=== PATIENT | male | born 1945 | race Caucasian/White ===

== ENCOUNTER → 2016-04-24 | Outpatient (CLI) | payer OTHER, MEDICARE ==
[2015-04-12 13:20] VITALS: BP 131/84; PULSE 82
[~2016-04-24] MED LIST: ALBU1AER9 INH; ASPI81TA28 PO; ATOR10TA82 PO; CHOLTAB3 PO; ESCI10TA17 PO; FEXO1TAB58 PO; FINA5TAB PO; FLUT0.0529 INTNAS; FLUT110A INH; GLIM1TAB2 PO; INSDGI SC; LEVO75TA5 PO; METF1TAB53 PO; MULT-506 PO; SITA100T3 PO; [UNRECOGNIZED DRUG - CODE]; [UNRECOGNIZED DRUG - CODE] PO
[2016-04-24 12:49] VITALS: BP_SYST 166; BP_SYST 171; BP_DIAS 91; BP_DIAS 97; PULSE 88; TEMP 36.9; O2SAT 97
--- NOTE | 2016-04-24 13:52 | Radiation Oncology Follow-Up ---
Radiation Oncology Follow-Up Date of Visit Apr 24, 2016. Reason For Visit Annual follow up Radiation Completion Date Hormonal suppression;IMRT 09/08/10 Diagnosis (1) Prostate cancer Status: Resolved Permanent Comment: Rising PSA presenting PSA 7.12 Status post biopsies. Biopsy stage T2c [place] 3+4 and 4+4 Hormonal suppression for 8 months Status post completion of radiation therapy utilizing IMRT/IGRT completed 2010 received 7840 cGy Last Edited By: Leydi Estrella on Apr 12, 2015 14:32 Interim History He is currently doing well from urinary standpoint. His AUA score was 5. He is delighted in regards to the outcome of his urinary condition. He completed and expanded prostate cancer index composite for clinical practice and gave a score of 0 of 12 and urinary incontinence symptoms. He gave a score of 0 of 12 urinary irritation symptoms. He gave a score of 2 of 12 in bowel symptoms. He gave a score of 8 of 12 and sexual symptoms. To note he wrote that this was not a problem. He gave a score of 0 12 and hormonal vitality symptoms. His total was 10 of 60. Earlier this year he had an episode of gross hematuria. This occurred after exercising. He called his urologist and recommendation was that he drink plenty of fluids to flush the bladder. He was then seen the following Saturday. He had a cystoscopic examination as well as a CT. He was told he has an enlarged prostate and increased vasculature. He was started on finasteride. With this medication he has greatly improved. There has been minimal and decreasing episodes of the hematuria. He has had a recheck PSA which was on 04/17/2016. That was found to be 0.34. He has been on the finasteride for over 6 months. His PSA converts to 0.68 due to the finasteride. Allergies Coded Allergies: Sulfa Drugs (Unverified Allergy, Unknown, unknown told by allergists after testing -sulfa allergy, 10/12/10) Home Medications Scheduled Aspirin (Aspirin Ec), 81 MG PO DAILY Atorvastatin (Lipitor), 10 MG PO DAILY Ergocalciferol (Vitamin D), 400 INTER.UNIT PO BID Escitalopram (Lexapro), 10 MG PO DAILY Finasteride (Proscar), 1 TAB PO DAILY Glimepiride (Glimepiride), 3 MG PO HS Insulin Glargine (Lantus), 10 SC QD@08 Levothyroxine Sodium (Levothyroxine Sodium), 75 MCG PO DAILY Metformin Hcl (Glucophage Ext Rel), 1,000 MG PO BID Multivitamin (Multivitamin), 1 TAB PO DAILY Sitagliptin Phosphate (Januvia), 100 MG PO DAILY Valsartan/Hctz (Diovan Hct 320MG/25MG *), 1 TAB PO DAILY [co-Q10], 1 TABLET DAILY Scheduled PRN Albuterol (Proair Hfa), 2 PUFFS INH QID PRN for Shortness of Breath Fexofenadine-Pseudoephedrine (Mercedes-D 24 Hour Allergy), 1 TAB PO DAILY PRN for Nasal Congestion Fluticasone Propionate Hfa (Flovent Hfa 110MCG Inhaler), 2 PUFF INH BID PRN for Shortness of Breath Fluticasone Propionate (Nasal) (Flonase), 2 SPRAYS INTNAS DAILY PRN for Shortness of Breath Review of Systems Gastrointestinal: Symptoms: WNL GI Comments: Continues to get "bouts of diarrhea" that resolves without intervention; Oral: Symptoms: No Problems Respiratory: Symptoms: WNL Other Respiratory: "SOB with a bad cold " had childhood asthma Urinary: Symptoms: Nocturia Comments: "urgency, some dribbling at times ", nocturia times 1 Skin: Symptoms: No Problems Other Skin Symptoms: ' had some skin tags removed " Physical Exam Vital Signs Date Time Temp Pulse Resp B/P Pulse Ox O2 Delivery O2 Flow Rate FiO2 04/24/16 12:49 36.9 88 16 171/91 97 166/97 Pain: Side: Bilateral Pain Location: None Patient Pain Scale: 0 - 10 Initial Pain Intensity: 0.0 Fatigue: None General Appearance: no apparent distress Eyes: normal inspection, EOMI ENT: normal ENT inspection, hearing grossly normal Neck: no adenopathy, thyroid normal Respiratory/Chest: lungs clear, no respiratory distress, no accessory muscle use Cardiovascular: regular rate, rhythm, no gallop, no murmur Anal / Rectum: Rectal examination reveals internal hemorrhoids. The prostate is enlarged. There are no masses or rectal bleeding. Extremities: no pedal edema Neurologic/Psychiatric: no motor/sensory deficits, alert, normal mood/affect Laboratory Studies PSA as reviewed above. This was found to be 0.34 which converts to 0.68. Additional Studies The cystoscopic examination was reviewed from 11/01/2015. This showed trilobar hypertrophy with large vessels on the surface. The prostate bulges into the bladder. Assessment & Plan Plan: Continue regular follow-up with Dr. Torres. He'll be seeing her on May 01. Continue follow-up on the PSAs. A follow-up appointment with our office was not given. He may call if he has any questions or concerns we be happy to see him. He is going to continue on the finasteride which is helping his urinary status as well as episodes of hematuria. We did discuss that the changes that occurred may be related to radiation if this is telangiectasia. He 'll continue to need digital rectal examinations in the future to follow for any possible secondary malignancy. Total Time In Follow-Up I spent 20 minutes speaking to the patient performing examination. I spent 15 minutes reviewing information and completing this note. Copy To Tamiko Gaming DO; Vannessa Torres MD
== END | disposition home or self-care (01) ==
LOC: C.ONC 12:44
PROVIDERS: ATTEND Physician Assistant Medical
DX: Z08 Encounter for follow-up examination after completed treatment for malignant neoplasm (principal); Z92.3 Personal history of irradiation; Z85.46 Personal history of malignant neoplasm of prostate

== ENCOUNTER 2017-05-07 11:00 | Day surgery (SDC) | payer OTHER, MEDICARE ==
[~2017-05-07] VITALS: Ht 193 cm; Wt 114.5 kg
[~2017-05-07 11:00] MED LIST changes: +CEFAZOLIN 3000MG IV PUSH 22.5 ML IV SCH
[2017-05-07 11:43] VITALS: BP 185/82; PULSE 96; TEMP 36.6; O2SAT 100; Ht 193 cm; Wt 114.5 kg
--- NOTE | 2017-05-07 12:24 | History & Physical Bridge Note ---
H&P Re-Evaluation Bridge Note: I have examined the patient, reviewed the History & Physical and in the interval since the performance of the History & Physical I have noted the following changes of clinical significance: No changes noted
[2017-05-07] MEDS ORDERED: LIDOCAINE HCL 2% 2 ML VIAL (20MG/ML) ONE (12:36)
[2017-05-07] MEDS ORDERED: DEXAMETHASONE SOD INJ 4 MG/ML VIAL ONE (12:36)
[2017-05-07] MEDS ORDERED: ONDANSETRON INJ 2 MG/ML 2 ML VIAL ONE (12:36)
[2017-05-07] MEDS ORDERED: PROPOFOL IV EMULSION 10 MG/ML 20 ML VIAL IV ONE (12:36)
[2017-05-07] MEDS ORDERED: FENTANYL CITRATE INJ 50 MCG/1 ML 2 ML VIAL ONE (12:37)
[2017-05-07] MEDS ORDERED: MIDAZOLAM HCL 1 MG/ML 2ML VIAL ONE ×2 (12:37→13:59)
[2017-05-07] MEDS ORDERED: CEFAZOLIN SOD 3000MG/22.5 ML IV PUSH IV ONE (12:38)
--- NOTE | 2017-05-07 14:07 | [facility] Operative Report ---
Operative Report Operative Date May 07, 2017. Pre-Operative Diagnosis Gross Hematuria Post-Operative Diagnosis Bladder tumor Procedure(s) Performed Cystoscopy, Clot Evacuation, and Bladder Biopsy Surgeon Dr. Vannessa Torres Body Component Engineer Surgeon(s) None Estimated Blood Loss 20 mL Findings papillary tumor left bladder floor Fluids 600 Specimens Permanent specimens A: Left Bladder Floor Biopsy Drains 18 fr coude garzon Anesthesia Type Spinal MAC Complication(s) none Disposition yes Recovery Room / PACU Indications persistent gross hematuria and dropping hematocrit Description of Procedure Patient was given spinal anesthesia sedated and placed in lithotomy position. His genitals were prepped and draped in sterile fashion. Time out held with team. I placed a 22 fr rigid cystoscope to bladder. The urethra is unremarkable. The prostate is trilobar occlusive with a large middle lobe. I used a Reinaldo syringe and adapter to evacuate about 100mL of soft dark clot. The bleeding is coming from a 20mm left lateral floor bladder tumor. There are 3 vessels on surface actively bleeding. I used a cold cups forceps to remove the tumor then used bugbee to fulgurate any bleeding areas. I see no other tumors. I did use some cautery at the bladder neck for some prostate bleeding stirred up by scope manipulation. I rinsed bladder copiously then left him full. I emptied bladder by placing a 18 fr coude garzon and inflating balloon with 5mL saline. I concluded case. He transferred to recovery under my escort, in stable condition. Plan: Home today will call with path report. ASA 3 clean contaminated case ancef antibiotic registered medical transcriptionist I attest to the content of the Intraoperative Record and any orders documented therein. Any exceptions are noted below.
--- NOTE | 2017-05-07 14:08 | Discharge Instructions ---
Discharge Instructions Date of Service May 07, 2017. Admission Reason for Admission: Hematuria Discharge Discharge Diagnosis / Problem: bladder tumor Discharge Goals Goal(s): Improve disease control Activity Recommendations Activity Limitations: as noted below Lifting Limitations: no more than 25 pounds Exercise/Sports Limitations: none May Resume Sexual Activity: after one week Shower/Bathe: no limitations Driving or Machine Use: resume 1 day after discharge . Current Hospital Diet Patient's current hospital diet: Discharge Diet Recommended Diet: Diabetes Type 2 Diet Fluid Restriction: None Procedures Procedures Performed: Cystoscopy, Clot Evacuation, and Bladder Biopsy Pending Studies Studies pending at discharge: yes List of pending studies: path Medical Emergencies . Who to Call and When: Medical Emergencies: If at any time you feel your situation is an emergency, please call 911 immediately. . Non-Emergent Contact Non-Emergency issues call your: Urologist ([phone]) Call Non-Emergent contact if: temperature is above 100.5, your pain is not controlled . . "Provider Documentation" section prepared by Vannessa Torres. .
[2017-05-07] MEDS ORDERED: FENTANYL CITRATE INJ 50 MCG/1 ML 2 ML VIAL IV PRN (14:15)
[2017-05-07] MEDS ORDERED: ONDANSETRON INJ 2 MG/ML 2 ML VIAL IV PRN (14:15)
[2017-05-07] MEDS ORDERED: ATROPINE SULFATE 0.1 MG/ML 5ML SYR IV PRN (14:15)
[2017-05-07] MEDS ORDERED: EpHEDrine SULFATE INJ 50 MG/ML AMP IV PRN (14:15)
[2017-05-07 14:25] VITALS: BP 141/72; PULSE 86; TEMP 36.9; O2SAT 100
[2017-05-07 14:55] VITALS: BP 140/69; PULSE 87; TEMP 36.8; O2SAT 98
--- NOTE | 2017-05-07 15:06 | Anesthesiology Progress Note ---
Anesthesia Post Op Note Date & Time May 07, 2017 at 15:06 Vital Signs Pain Intensity: 0 Vital Signs Past 12 Hours Date Time Temp Pulse Resp B/P (MAP) Pulse Ox O2 Delivery O2 Flow Rate FiO2 05/07/17 14:20 36.2 85 16 143/76 99 Room Air 05/07/17 14:10 86 16 142/79 100 Room Air 05/07/17 14:01 36.3 99 16 141/95 99 Room Air 05/07/17 11:43 36.6 96 20 185/82 (116) 100 Room Air Notes Mental Status: alert / awake / arousable, participated in evaluation Pt Amnestic to Procedure: Yes Nausea / Vomiting: adequately controlled Pain: adequately controlled Airway Patency, RR, SpO2: stable & adequate BP & HR: stable & adequate Hydration State: stable & adequate Neuraxial Anesthesia: was administered, sensory block is resolving Anesthetic Complications: no major complications apparent
[2017-05-07 15:33] VITALS: BP 153/70; PULSE 88; TEMP 37.1; O2SAT 98
[2017-05-07 16:20] VITALS: BP 160/76; PULSE 93; TEMP 37.1; O2SAT 100
== END 2017-05-07 16:33 | disposition home or self-care (01) ==
LOC: C.OR 11:00 → C.ACU 16:33
PROVIDERS: ATTEND Urology
DX: C67.9 Malignant neoplasm of bladder, unspecified (principal); I10 Essential (primary) hypertension; E03.9 Hypothyroidism, unspecified; E11.9 Type 2 diabetes mellitus without complications; E78.5 Hyperlipidemia, unspecified; G47.33 Obstructive sleep apnea (adult) (pediatric); Z85.46 Personal history of malignant neoplasm of prostate; Z90.89 Acquired absence of other organs; Z88.2 Allergy status to sulfonamides; Z79.899 Other long term (current) drug therapy; Z79.4 Long term (current) use of insulin

== ENCOUNTER 2019-10-12 11:26 | Inpatient (IN) ==
--- OUTSIDE RECORDS SUMMARY | 2019-10-12 11:28 | External Medical Summary | Continuity of Care Document ---
:1945 Author Name Samanta Moreno, Provider Address Unavailable Unavailable , Care Team Providers Name Role Phone Bunny Moreno, Andrew Newton Unavailable [email or web address] Unavailable Unavailable Unavailable Unavailable Unavailable Assessments Assessed Problems:HypertensionPre-syncopeRight bundle branch block with left anterior fascicular block Problems Anxiety (300.00) (F41.9) Diabetes mellitus (250.00) (E11.9) Hypothyroidism (244.9) (E03.9) Elevated prostate specific antigen (PSA) (790.93) (R97.20) Dyslipidemia (272.4) (E78.5) Abnormal electrocardiogram (794.31) (R94.31) Hypertension (401.9) (I10) Pre-syncope (780.2) (R55) 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 Refills: 0 Lantus SOLN; INJECT 20 UNITS DAILY Refills: 0 Lexapro 5 MG Oral Tablet; TAKE 1 TABLET DAILY. Refills: 0 Levothyroxine Sodium 75 MCG Oral Tablet; TAKE 1 TABLET DAILY . Quantity: 90 Refills: 3 Glimepiride 1 MG Oral Tablet; TAKE 3 TABLET Daily Refills: 0 metFORMIN HCl ER (OSM) 1000 MG Oral Tabl et Extended Release 24 Hour; Take 1 tablet twice daily Refills: 0 Diovan HCT 320-12.5 MG Oral Tablet; TAKE 1 TABLET ONCE DAILY . Refills: 0 Januvia 100 MG Oral Tablet; TAKE 1 TABLET DAILY. Refills: 0 Vitamin D 400 UNIT CAPS; Take 1 capsule twice daily Refills: 0 amLODIPine Besylate 10 MG Oral Tablet; TAKE 1 TABLET DAILY. Refills: 0 Mercedes 180 MG TABS; TAKE 1 TABLET DAILY NEEDED. Refills: 0 Procedures History of Tonsillectomy With Adenoidectomy Status: Completed History of Hernia Repair Status: Complet ed Immunizations Immunizations not documented Social History - Smoking Status Never smoked tobacco Interventions Labs/Procedures/ImagingIn-House EKG Total Component; Done: 18 May 2014 Discussion/Summary#1. Bifascicular block: He has right bundle branch block and left anterior fascicular block (one electrocardiogram in the past had lead reversal evidently suggesting a left posterior fascicular block pattern). He has had this pattern since at least 2004, probably earlier based on his history but this is the earliest electrocardiogram I have. There is no evidence of heart block on Holter monitoring and his heart is structurally normal therefore there is no indication to consider pacemaker implantation or further testing at this time. We should follow this up occasionally. If he has any symptoms in the meantime we may need to consider further evaluation. #2. Intermittent lightheadedness: It is possible that these several episodes described above wherehe has several minutes of lightheadedness are due to heart block although he believes he is checked his pulse and did not noted to be slow. He thought the episodes were due to low blood sugar although he did not do anything to correct his blood sugar and the episodes resolved quite suddenly. The episodes are very intermittent, he has had 2 by years, therefore unless they become more frequent I do not think we can try to record them. If they do become frequent we should try to get an electrocardiographic recording during an episode. He does have rare orthostatic type symptoms with standingup, perhaps these episodes were more prolonged orthostatic episodes. #3. Coronary disease risk factors: He is being treated for hypercholesterolemia and he is cholesterol from June of 2011 he is excellent at 133 with an LDL of 46. His blood pressure appears to be under fairly good control although his blood pressure (systolic component only) is a little elevated today. He also has left ventricular hypertrophy, this is mild but is most likely due to hypertension. I'venot adjusted his medications, ordinarily I might consider adding a beta diana but with his conduction abnormality (even though beta blockers don't typically affect intraventricular conduction properties) I would prefer not to. In addition he has the minor orthostatic symptoms and he tells me his blood pressures usually less than 120 systolic when he checks it at home. I am going to have him come back in for followup in one year. Thank you for allowing me to participate in his care. Plan of Treatment Planned Observations Planned Goals not documented Results No Known Results Results not documented Encounters Appointment; Andrew Hollis M.D. 18-May-2014 11:30 Encounter Diagnosis: Problem not documented
--- OUTSIDE RECORDS SUMMARY | 2019-10-12 11:29 | External Medical Summary | Continuity of Care Document ---
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 Refills: 0 Lexapro 5 MG Oral Tablet; TAKE 1 TABLET DAILY. Refills: 0 Levothyroxine Sodium 75 MCG Oral Tablet; TAKE 1 TABLET DAILY . Quantity: 90 Refills: 3 Januvia 100 MG Oral Tablet; TAKE 1 TABLET DAILY. Refills: 0 Glimepiride 1 MG Oral Tablet; TAKE 3 TABLET Daily Refills: 0 Vitamin D 400 UNIT CAPS; Take 1 capsule twice daily Refills: 0 amLODIPine Besylate 10 MG Oral Tablet; TAKE 1 TABLET DAILY. Refills: 0 Mercedes 180 MG TABS; TAKE 1 TABLET DAILY NEEDED. Refills: 0 Lipitor 20 MG Oral Tablet; TAKE 1 TABLET DAILY. Refills: 0 Lantus SOLN; INJECT 20 UNITS DAILY Refills: 0 metFORMIN HCl ER (OSM) 1000 MG Oral Tabl et Extended Release 24 Hour; Take 1 tablet twice daily Refills: 0 Procedures History of Tonsillectomy With [...]
[2019-10-12] MEDS ORDERED: SODIUM CHLORIDE 0.9% 500 ML IV ONE ×2 (11:47→14:25)
[2019-10-12] MEDS ORDERED: DEXAMETHASONE SOD INJ 10 MG/ML VIAL IV ONE (11:47)
[2019-10-12] MEDS ORDERED: ALBUT/IPRATROP 3MG/0.5MG NEB 3 ML VIAL NEB STA (11:49)
[2019-10-12] MEDS ORDERED: guaiFENesin 600 MG TABCR PO STA (11:49)
[2019-10-12 12:47] LABS: Basophils # (auto) 0.01 K/uL (0-0.2); Basophils % (auto) 0.1 %; Eosinophils # (auto) 0.07 K/uL (0-0.5); Eosinophils % (auto) 0.8 %; Hemoglobin 11.6 g/dL (14.0-18.0); Immature Granulocytes # (auto) 0.24 K/uL (0.00-0.02); Immature Granulocytes % (auto) 2.8 %; Lymphocytes # (auto) 1.29 K/uL (1.2-3.4); Lymphocytes % (auto) 15.2 %; Mean Corpuscular Hemoglobin 25.4 pg (25-34); Mean Corpuscular Hgb Conc 30.5 g/dL (32-36); Mean Corpuscular Volume 83.2 fL (80-100); Mean Platelet Volume 9.9 fL (7.4-10.4); Monocytes # (auto) 1.03 K/uL (0.11-0.59); Monocytes % (auto) 12.1 %; Neutrophils # (auto) 5.85 K/uL (1.4-6.5); Nucleated RBC # (auto) 0.05 K/uL (0-0); Nucleated RBC % (auto) 0.6 %; Platelet Count 236 K/uL (130-400); RDW Coefficient of Variation 18.2 % (11.5-14.5); RDW Standard Deviation 54.9 fL (36.4-46.3); Red Blood Count 4.57 M/uL (4.7-6.1); White Blood Count 8.49 K/uL (4.8-10.8)
--- NOTE | 2019-10-12 12:51 | XRay Report ---
XR chest 1V portable CLINICAL HISTORY: Atypical chest pain COMPARISON STUDY: No previous studies for comparison. FINDINGS: There is complete opacification of the left hemithorax with mediastinal shift to the right. This suggests the presence of a pleural effusion with associated left lung atelectasis/consolidation . A left lung mass can also not be excluded. Further workup is advocated. The right lung demonstrates mild interstitial thickening. There is no lobar consolidation. No significant right pleural effusion is visualized.[ IMPRESSION: Complete opacification of left hemithorax with subtle shift to the right. This suggests t he presence of a pleural effusion with associated left lung atelectasis/consolidation. The left lung mass cannot be excluded. Further workup is advocated. ACT 112: Negative or not required by law. Electronically signed by: Enrique Rm M.D. 10/12/2019 12:49 PM
--- NOTE | 2019-10-12 13:00 | Emergency Department Note ---
Impression & Plan Hypoxia, History of prostate cancer, Pleural effusion, left, RAUL (acute kidney injury), Large mass of breast ED Provider Note NAME: CARTER ALFRED AGE: 74 SEX: M ARRIVES VIA: Ambulance INFORMANT: Patient, ED PROVIDER(S): Ronak Mathur MD CHIEF COMPLAINT: Shortness of breath PLAN: Disposition: Admit MEDICAL DECISION MAKING: The patient is a pleasant 74-year-old gentleman with a past medical history of asthma, HTN, HLD, prior bladder CA and prostate CA who presents emerged department with progressive worsening shortness of breath over the past several weeks in the setting of being treated by his PCP for asthma flare but denies any improvement. He admits to feeling fatigued and unwell. Otherwise he denies chest pain, fevers, cough, nausea, vomiting, diarrhea, urinary symptoms. On arrival the patient is in no acute distress, afebrile with stable vital signs. He appears clinically dry. He has scant intermittent wheeze and diminished in the left lung husain. EKG with right bundle branch block but no overt acute ischemia. Chest x-ray with white out of left lung husain which is further clarified on CT. WBC and platelets within normal limits. H/H 11.6/30.0 without recent values for comparison. Creatinine is 2.8 with BUN of 64 without recent values for comparison but does appear to be acute. LFTs with AST 46, nonspecific and LFTs otherwise unremarkable. Troponin negative/undetectable. BNP within normal limits. Lipase is not elevated. CT of the chest without contrast was performed and demonstrates evidence consistent with likely metastatic disease where there is a "5.3 cm left breast mass with associated skin thickening and subcutaneous infiltration of the breast suspicious for lymphangitic involvement". Additional note is made of left axillary LAD and large left pleural effusion occupying the entire left hemith orax resulting is mass effect. Additional pathologic fractures appreciated again consistent with metastatic disease. Given these findings in the setting of the patient's hypoxia reasonable to admit the patient for further management. Case was discussed with Zakia Hughes, [facility] PAC, with Dr. Pitt, [facility] hospitalist, who will evaluate the patient for admission. Triage Nursing notes reviewed and agree them. Prior medical records reviewed Vital Signs: reviewed and remarkable for no significant abnormalities Differential diagnosis: Reactive airway disease, pneumonia, pneumothorax, COPD, CHF, infections, cardiac ischemia, pulmonary embolism, musculoskeletal, gastrointestinal, as well as other pathologies. ER treatment provided: See below. Diagnostics interpreted by me: ECG: Normal sinus rhythm, 92 bpm, no ectopy, left axis deviation, right bundle branch block, no overt ST elevation or depression, QTC 457, QRS 128. Cardiac Monitoring: An order for continuous cardiac monitoring was placed and demonstrated normal sinus rhythm, 92 bpm, no ectopy. Laboratory studies: See below Imaging studies: XR chest 1V portable CLINICAL HISTORY: Atypical chest pain COMPARISON STUDY: No previous studies for comparison. FINDINGS: There is complete opacification of the left hemithorax with mediastinal shift to the right. This suggests the presence of a pleural effusion with associated left lung atelectasis/consolidation. A left lung mass can also not be excluded. Further workup is advocated. The right lung demonstrates mild interstitial thickening. There is no lobar consolidation. No significant right pleural effusion is visualized.[ IMPRESSION: Complete opacification of left hemithorax with subtle shift to the right. This suggests the presence of a pleural effusion with associated left lung atelectasis/consolidation. The left lung mass cannot be excluded. Further workup is advocated. CT chest wo con CT DOSE: 965.93 mGy.cm HISTORY: Shortness of breath. TECHNIQUE: Multiaxial CT images of the chest were performed without contrast. A dose lowering technique was utilized adhering to the principles of ALARA. COMPARISON: Chest 10/12/2019. FINDINGS: There is a large left pleural effusion occupying the entire left hemithorax and resulting in mass effect along the left lung and mediastinum/heart. There is moderate flattening of the heart with right mediastinal shift. There is complete atelectasis of the left lung which is likely secondary to the mass effect from the left pleural effusion. Mild left pleural thickening/enhancement best seen posteriorly on image 203. Therefore, this is highly suspicious for metastatic disease resulting in a malignant left pleural effusion. There is irregular left axillary lymphadenopathy. Dominant l eft axillary lymph node measures 3.4 x 1.6 cm. There is an associated 5.3 cm left breast mass which abuts but does not clearly invade into the left pectoralis muscle. This also abuts the skin surface and results in mild skin thickening. There is also infiltration of the fat of the left breast which could be due to edema or lymphangitic spread of tumor. There is a slightly irregular 1 cm lymph node within the subcutaneous fat of the left posterior shoulder image 80. This could also represent a metastatic focus. No mediastinal or hilar lymphadenopathy. No pericardial effusion. Trace right pleural effusion. There is a healing left lateral ninth rib fracture. This is concerning for a pathologic fracture. There is a destructive lesion occupying the majority of the T10 vertebral body resulting in a pathologic mild compression fracture. A few additional scattered lytic and sclerotic lesions seen within the thoracic spine consistent with metastatic disease. Normal esophagus. The visualized liver, spleen, and adrenal glands are unremarkable. Multiple scattered pulmonary nodules seen throughout the right lung also likely representing metastatic disease. Dominant nodule within the base of the right lower lobe on image 209 measures 1 cm. Mild interlobular septal thickening and perihilar groundglass density within the right lung. This could represent congestive change. Lymphangitic spread of tumor is considered less likely but not entirely excluded. IMPRESSION: 1. A 5.3 cm left breast mass with associated skin thickening and subcutaneous infiltration of the breast suspicious for lymphangitic involvement. 2. Left axillary lymphadenopathy consistent with metastatic disease. 3. Large left pleural effusion occupying the entire left hemithorax resulting in compressive atelectasis of the left lung, moderate flattening of the heart, and right mediastinal shift. There is mild left pleural thickening/enhancement. Therefore, this likely represents pleural metastatic disease with a malignant pleural effusion. 4. Scattered metastatic disease within the visualized osseous structures inc luding a destructive lesion at T10 resulting in a mild pathologic compression fracture. 5. Healing left lateral ninth rib fracture. This is also likely pathologic. 6. Multiple right-sided pulmonary nodules consistent with metastatic disease. Consultation(s): Case was discussed with Zakia Hughes, [facility] PAC, with Dr. Pitt, [facility] hospitalist, who will evaluate the patient for admission. HPI: The patient is a pleasant 74-year-old gentleman with a past medical history of asthma, HTN, HLD, prior bladder CA and prostate CA who presents emerged department with progressive worsening shortness of breath over the past several weeks in the setting of being treated by his PCP for asthma flare but denies any improvement. He admits to feeling fatigued and unwell. Otherwise he denies chest pain, fevers, cough, nausea, vomiting, diarrhea, urinary symptoms. ROS: See above HPI for pertinent positives & negatives. A total of 10 systems reviewed and were otherwise negative. PAST MEDICAL HISTORY:See Below PAST SURGICAL HISTORY:See Below FAMILY HISTORY:See Below SOCIAL HISTORY:See Below HOME MEDICATIONS:See Below ALLERGIES:See Below VITALS:See Below PHYSICAL EXAMINATION: GENERAL: Awake, alert, fatigued-appearing, in no distress HENT: Normocephalic, atraumatic. Oropharynx with dry mucous membranes and otherwise unremarkable. EYES: Normal conjunctiva. Sclera non-icteric. NECK: Supple. No nuchal rigidity. FROM. No JVD. RESPIRATORY: Scant intermittent wheeze and diminished in the left lung husain. CARDIAC: Regular rate, normal rhythm. Extremities warm and well perfused. Pulses equal. ABDOMEN: Soft, non-distended. No tenderness to palpation. No rebound or guarding. No masses. RECTAL: Deferred. MUSCULOSKELETAL: Chest examination reveals no tenderness. The back is symmetrical on inspection without obvious abnormality. There is no CVA tenderness to palpation. No joint edema. LOWER EXTREMITIES: Calves are equal size bilaterally and non-tender. No edema. No discoloration. NEURO: Normal sensorium. No sensory or motor deficits noted. SKIN: No rash or jaundice noted. Ronak Mathur MD Past Med/Surg History Medical History Anxiety Asthma Bifascicular block RBBB + LAFB. HAD ONE TIME CONSULTATION WITH DR. MORALES IN 2014. NORMAL ECHO 2011. Diabetes mellitus, type II On insulin and PO meds History of prostate cancer 7 YEARS AGO, HAD 45 LUPRON INJECTIONS Hyperlipidemia Hypertension Hypothyroidism Malignant neoplasm of bladder neck Surgical History History of adenoidectomy History of cystoscopy TURBT PROCEDURE, MULTIPLE CYSTOS History of herniorrhaphy History of tonsillectomy Family History Mother Diabetes Social History Smoking Status: Never smoker Second Hand Exposure: No; Hx Alcohol Use: Yes Alcohol type: beer Hx Substance Use: No Preferred Language: Kiswahili Communication Ability: Effective Production Dispatcher Required: No Beliefs That Will Affect Care: [facility] Sam[facility] Beliefs: amish Current Living Situation: Spouse Current Living Situation Comment: lives w/ Feels Safe at Home: Yes Allergies Allergies Allergy/AdvReac Type Severity Reaction Status Date / Time Sulfa (Sulfonamide Allergy Unknown unknown Verified 10/12/19 13:08 Antibiotics) told by allergists after testing -sulfa allergy Home Meds Home Medications Medication Instructions Recorded Confirmed Januvia 100 mg PO QDL 05/23/18 10/12/19 Lantus U-100 Insulin 15 unit SUBCUT QAM 05/23/18 10/12/19 albuterol sulfate 2 puff INHALATION QID PRN 05/23/18 10/12/19 fluticasone propionate [Flonase 2 spray INTRANASAL DAILY PRN 05/23/18 10/12/19 Allergy Relief] metformin 1,000 mg PO BIDM 05/23/18 10/12/19 amlodipine 2.5 mg PO HS 10/12/19 10/12/19 budesonide-formoterol [Symbicort] 2 puff INHALATION BID 10/12/19 10/12/19 escitalopram oxalate 20 mg PO HS 10/12/19 10/12/19 finasteride 5 mg PO HS 10/12/19 10/12/19 glimepiride 1 mg PO QDD 10/12/19 10/12/19 glimepiride 2 mg PO QDD 10/12/19 10/12/19 hydrochlorothiazide 25 mg PO QAM 10/12/19 10/12/19 levothyroxine 88 mcg PO QAM 10/12/19 10/12/19 losartan 100 mg PO QAM 10/12/19 10/12/19 rosuvastatin 20 mg PO QDL 10/12/19 10/12/19 Results & Data (ED) Vital Signs Vital Signs - 24 hr 10/12/19 11:26 10/12/19 11:31 10/12/19 11:54 Temperature 36.9 C Temperature Source Oral Pulse Rate 94 H 92 H 94 H Pulse Rate [Right Finger] Pulse Rate from SpO2 Sensor 92 H Pulse Rhythm Regular Regular Respiratory Rate 18 32 H 18 Respiratory Effort / Characteristics Non-Labored Spontaneous Respiratory Depth Normal Respiratory Pattern Regular Blood Pressure 125/69 125/69 Blood Pressure Mean 87 80 Pulse Oximetry 86 L 88 L 98 Oxygen Delivery Method Room Air Nasal Cannula Room Air Nasal Cannula Oxygen Flow Rate 0 3 Sepsis Recent Fever Within 48 Hours No Sepsis New/Unexplained Change in Mental Status No Sepsis Action Taken by Nursing No Action Required Oxygen Flow Rate - Titration 3 Pulse Oximetry Post Tiitration 98 10/12/19 12:40 10/12/19 12:49 10/12/19 13:01 Temperature Temperature Source Pulse Rate 100 H 101 H Pulse Rate [Right Finger] 92 H Pulse Rate from SpO2 Sensor 100 H 98 H Pulse Rhythm Respiratory Rate 27 H 20 14 Respiratory Effort / Characteristics Spontaneous Respiratory Depth Respiratory Pattern Blood Pressure 107/63 113/97 Blood Pressure Mean 81 106 Pulse Oximetry 97 98 92 Oxygen Delivery Method Nasal Cannula Nasal Cannula Nasal Cannula Oxygen Flow Rate 3 3 2 Sepsis Recent Fever Within 48 Hours Sepsis New/Unexplained Change in Mental Status Sepsis Action Taken by Nursing Oxygen Flow Rate - Titration Pulse Oximetry Post Tiitration 10/12/19 13:31 10/12/19 14:30 Temperature Temperature Source Pulse Rate 90 100 H Pulse Rate [Right Finger] Pulse Rate from SpO2 Sensor 91 H 100 H Pulse Rhythm Respiratory Rate 24 31 H Respiratory Effort / Characteristics Respiratory Depth Respiratory Pattern Blood Pressure 91/52 L 108/88 Blood Pressure Mean 71 94 Pulse Oximetry 96 94 Oxygen Delivery Method Nasal Cannula Nasal Cannula Oxygen Flow Rate 3 3 Sepsis Recent Fever Within 48 Hours Sepsis New/Unexplained Change in Mental Status Sepsis Action Taken by Nursing Oxygen Flow Rate - Titration Pulse Oximetry Post Tiitration Laboratory Data Attestation: I reviewed the patient's lab results. Result diagrams: 10/12/19 12:25 10/12/19 12:35 Lab Results 10/12/19 10/12/19 10/12/19 Range/Units 12:25 12:35 12:35 WBC 8.49 (4.8-10.8) K/uL RBC 4.57 L (4.7-6.1) M/uL Hgb 11.6 L (14.0-18.0) g/dL Hct 38.0 L (42-52) % MCV 83.2 (80-100) fL MCH 25.4 (25-34) pg MCHC 30.5 L (32-36) g/dL RDW Std Deviation 54.9 H (36.4-46.3) fL RDW Coeff of Amy 18.2 H (11.5-14.5) % Plt Count 236 (130-400) K/uL MPV 9.9 (7.4-10.4) fL Immature Gran % (Auto) 2.8 % Neut % (Auto) 69.0 % Lymph % (Auto) 15.2 % Howard % (Auto) 12.1 % Eos % (Auto) 0.8 % Baso % (Auto) 0.1 % Neut # (Auto) 5.85 (1.4-6.5) K/uL Lymph # (Auto) 1.29 (1.2-3.4) K/uL Howard # (Auto) 1.03 H (0.11-0.59) K/uL Eos # (Auto) 0.07 (0-0.5) K/uL Baso # (Auto) 0.01 (0-0.2) K/uL Immature Gran # (Auto) 0.24 H (0.00-0.02) K/uL Absolute Nucleated RBC 0.05 H (0-0) K/uL Nucleated RBC % (auto) 0.6 % PT 11.8 (9.0-12.0) Seconds INR 1.1 (0.9-1.1) APTT 26.6 (21.0-31.0) Seconds PTT Ratio 1.0 Sodium 138 (136-145) mmol/L Potassium 3.8 (3.5-5.1) mmol/L Chloride 104 (98-107) mmol/L Carbon Dioxide 24 (21-32) mmol/L Anion Gap 10.0 (3-11) BUN 64 H (7-18) mg/dl Creatinine 2.81 H (0.6-1.4) mg/dl Est Cr Clr Drug Dosing 31.2 ml/min Est GFR ( Amer) 24.5 Est GFR (Non-Af Amer) 21.2 BUN/Creatinine Ratio 22.7 H (10-20) Glucose 123 H (70-99) mg/dl Calcium 9.1 (8.5-10.1) mg/dl Phosphorus 5.3 H (2.5-4.9) mg/dl Magnesium 2.6 H (1.8-2.4) mg/dl Total Bilirubin 0.4 (0.2-1) mg/dl Direct Bilirubin 0.1 (0-0.2) mg/dl AST 46 H (15-37) U/L ALT 40 (12-78) U/L Alkaline Phosphatase 98 (45-117) U/L Lactate Dehydrogenase (87-241) U/L Troponin I < 0.015 (0-0.045) ng/ml NT-Pro-B Natriuret Pep 310 (0-900) pg/ml Total Protein 7.4 (6.4-8.2) gm/dl Albumin 3.0 L (3.4-5.0) gm/dl Globulin 4.4 H (2.5-4.0) gm/dl Albumin/Globulin Ratio 0.7 L (0.9-2) Lipase 246 (73-393) U/L TSH (0.300-4.500) uIu/ml 10/12/19 10/12/19 Range/Units 12:35 12:36 WBC (4.8-10.8) K/uL RBC (4.7-6.1) M/uL Hgb (14.0-18.0) g/dL Hct (42-52) % MCV (80-100) fL MCH (25-34) pg MCHC (32-36) g/dL RDW Std Deviation (36.4-46.3) fL RDW Coeff of Amy (11.5-14.5) % Plt Count (130-400) K/uL MPV (7.4-10.4) fL Immature Gran % (Auto) % Neut % (Auto) % Lymph % (Auto) % Howard % (Auto) % Eos % (Auto) % Baso % (Auto) % Neut # (Auto) (1.4-6.5) K/uL Lymph # (Auto) (1.2-3.4) K/uL Howard # (Auto) (0.11-0.59) K/uL Eos # (Auto) (0-0.5) K/uL Baso # (Auto) (0-0.2) K/uL Immature Gran # (Auto) (0.00-0.02) K/uL Absolute Nucleated RBC (0-0) K/uL Nucleated RBC % (auto) % PT (9.0-12.0) Seconds INR (0.9-1.1) APTT (21.0-31.0) Seconds PTT Ratio Sodium (136-145) mmol/L Potassium (3.5-5.1) mmol/L Chloride (98-107) mmol/L Carbon Dioxide (21-32) mmol/L Anion Gap (3-11) BUN (7-18) mg/dl Creatinine (0.6-1.4) mg/dl Est Cr Clr Drug Dosing ml/min Est GFR ( Amer) Est GFR (Non-Af Amer) BUN/Creatinine Ratio (10-20) Glucose (70-99) mg/dl Calcium (8.5-10.1) mg/dl Phosphorus (2.5-4.9) mg/dl Magnesium (1.8-2.4) mg/dl Total Bilirubin (0.2-1) mg/dl Direct Bilirubin (0-0.2) mg/dl AST (15-37) U/L ALT (12-78) U/L Alkaline Phosphatase (45-117) U/L Lactate Dehydrogenase 537 H (87-241) U/L Troponin I (0-0.045) ng/ml NT-Pro-B Natriuret Pep (0-900) pg/ml Total Protein (6.4-8.2) gm/dl Albumin (3.4-5.0) gm/dl Globulin (2.5-4.0) gm/dl Albumin/Globulin Ratio (0.9-2) Lipase (73-393) U/L TSH 1.110 (0.300-4.500) uIu/ml Administered Medications Escitalopram Oxalate (Escitalopram Oxalate 20 Mg Tab) 20 mg PO HS JAVID Stop: 11/11/19 20:59 Last Admin: 10/12/19 20:21 Dose: 20 mg Documented by: [id number] Finasteride (Finasteride 5 Mg Tab) 5 mg PO HS JAVID Stop: 11/11/19 20:59 Last Admin: 10/12/19 20:21 Dose: 5 mg Documented by: [id number] Sodium Chloride (Nss 1000ml) 1,000 mls @ 60 mls/hr IV .[id number] JAVID Stop: 10/13/19 12:39 Last Admin: 10/12/19 20:16 Dose: 60 mls/hr Documented by: [id number] Insulin Aspart (Insulin Aspart 100 Units/Ml 3 Ml Pen) 0 units SC ACHS JAVID Stop: 11/11/19 18:57 Last Admin: 10/12/19 20:23 Dose: Not Given Documented by: [id number] Cosigned by: [id number] Admin: 10/12/19 20:15 Dose: Not Given Documented by: [id number] Cosigned by: [id number] Insulin Glargine (Insulin Glargine Solostar 100 Units/Ml 3 Ml Pen) 0 units SC BID [facility]; Protocol Stop: 11/11/19 20:59 Last Admin: 10/12/19 20:20 Dose: Not Given Documented by: [id number] Discontinued Medications Albuterol (Albut/Ipratrop 3mg/0.5mg Neb 3 Ml Vial) 3 ml NEB NOW STA Stop: 10/12/19 11:50 Last Admin: 10/12/19 12:49 Dose: 3 ml Documented by: [id number] Dexamethasone (Dexamethasone Sod Inj 10 Mg/Ml Vial) 10 mg IV NOW ONE Stop: 10/12/19 11:48 Last Admin: 10/12/19 12:58 Dose: 10 mg Documented by: [id number] Guaifenesin (Guaifenesin 600 Mg Tabcr) 600 mg PO NOW STA Stop: 10/12/19 11:50 Last Admin: 10/12/19 12:58 Dose: 600 mg Documented by: [id number] Sodium Chloride (Nss) 500 mls @ 999 mls/hr IV .Q31M ONE Stop: 10/12/19 12:17 Last Infusion: 10/12/19 13:36 Dose: 0 mls/hr Documented by: [id number] Admin: 10/12/19 12:58 Dose: 999 mls/hr Documented by: [id number] Sodium Chloride (Nss) 500 mls @ 999 mls/hr IV .Q31M ONE Stop: 10/12/19 14:55 Last Infusion: 10/12/19 16:16 Dose: 0 mls/hr Documented by: [id number] Admin: 10/12/19 15:27 Dose: 999 mls/hr Documented by: [id number] Blood Pressure Blood Pressure Findings: Normal blood pressure Blood Pressure Disposition: further management by hospitalist Discharge Plan Visit Data Chief Complaint: Shortness of Breath/Dyspnea Stated Complaint: SOB ED Provider: Ronak Mathur Discharge Problem: Hypoxia, History of prostate cancer, Pleural effusion, left, RAUL (acute kidney injury), Large mass of breast Patient Disposition: Admitted As Inpatient Discharge Instructions Interventions: ED Discharge Assessment Last Done: 10/12/19 18:26
[2019-10-12 13:06] LABS: Alanine Aminotransferase 40 U/L (12-78); Aspartate Aminotransferase 46 U/L (15-37); BUN Creatinine Ratio 22.7 (10-20); Bilirubin Direct 0.1 mg/dl (0-0.2); Blood Urea Nitrogen 64 mg/dl (7-18); Calcium 9.1 mg/dl (8.5-10.1); Carbon Dioxide 24 mmol/L (21-32); Chloride 104 mmol/L (98-107); Creatinine Clr Calc Pharmacy 31.2 ml/min; Est GFR (African American) 24.5; Est GFR (Non-African American) 21.2; Glucose 123 mg/dl (70-99); Lipase 246 U/L (73-393); Magnesium 2.6 mg/dl (1.8-2.4); Potassium 3.8 mmol/L (3.5-5.1); Sodium 138 mmol/L (136-145)
[2019-10-12 13:09] LABS: Albumin Globulin Ratio 0.7 (0.9-2); Alkaline Phosphatase 98 U/L (45-117); Bilirubin,Total 0.4 mg/dl (0.2-1); Globulin 4.4 gm/dl (2.5-4.0); NT Pro B Type Natriuretic Pept 310 pg/ml (0-900); Phosphorus 5.3 mg/dl (2.5-4.9); Total Protein 7.4 gm/dl (6.4-8.2); Troponin I < 0.015 ng/ml (0-0.045)
[2019-10-12 13:11] LABS: INR 1.1 (0.9-1.1); Partial Thromboplastin Time 26.6 Seconds (21.0-31.0); Prothrombin Time 11.8 Seconds (9.0-12.0)
--- NOTE | 2019-10-12 14:26 | CT Scan Report ---
CT chest wo con CT DOSE: 965.93 mGy.cm HISTORY: Shortness of breath. TECHNIQUE: Multiaxial CT images of the chest were performed without contrast. A dose lowering techni que was utilized adhering to the principles of ALARA. COMPARISON: Chest 10/12/2019. FINDINGS: There is a large left pleural effusion occupying the entire left hemithorax and resulting i n mass effect along the left lung and mediastinum/heart. There is moderate flattening of the heart wi th right mediastinal shift. There is complete atelectasis of the left lung which is likely secondary to the mass effect from the left pleural effusion. Mild left pleural thickening/enhancement best seen posteriorly on image 203. Therefore, this is highly suspicious for metastatic disease resulting in a malignant left pleural effusion. There is irregular left axillary lymphadenopathy. Dominant left axi llary lymph node measures 3.4 x 1.6 cm. There is an associated 5.3 cm left breast mass which abuts bu t does not clearly invade into the left pectoralis muscle. This also abuts the skin surface and resul ts in mild skin thickening. There is also infiltration of the fat of the left breast which could be d ue to edema or lymphangitic spread of tumor. There is a slightly irregular 1 cm lymph node within the subcutaneous fat of the left posterior shoulder image 80. This could also represent a metastatic foc us. No mediastinal or hilar lymphadenopathy. No pericardial effusion. Trace right pleural effusion. T here is a healing left lateral ninth rib fracture. This is concerning for a pathologic fracture. Ther e is a destructive lesion occupying the majority of the T10 vertebral body resulting in a pathologic mild compression fracture. A few additional scattered lytic and sclerotic lesions seen within the tho racic spine consistent with metastatic disease. Normal esophagus. The visualized liver, spleen, and a drenal glands are unremarkable. Multiple scattered pulmonary nodules seen throughout the right lung a lso likely representing metastatic disease. Dominant nodule within the base of the right lower lobe o n image 209 measures 1 cm. Mild interlobular septal thickening and perihilar groundglass density with in the right lung. This could represent congestive change. Lymphangitic spread of tumor is considered less likely but not entirely excluded. IMPRESSION: 1. A 5.3 cm left breast mass with associated skin thickening and subcutaneous infiltration of the corie ast suspicious for lymphangitic involvement. 2. Left axillary lymphadenopathy consistent with metastatic disease. 3. Large left pleural effusion occupying the entire left hemithorax resulting in compressive atelecta sis of the left lung, moderate flattening of the heart, and right mediastinal shift. There is mild le ft pleural thickening/enhancement. Therefore, this likely represents pleural metastatic disease with a malignant pleural effusion. 4. Scattered metastatic disease within the visualized osseous structures including a destructive lesi on at T10 resulting in a mild pathologic compression fracture. 5. Healing left lateral ninth rib fracture. This is also likely pathologic. 6. Multiple right-sided pulmonary nodules consistent with metastatic disease. ACT 112: Negative or not required by law. Electronically signed by: Brian Muir M.D. 10/12/2019 2:25 PM
--- NOTE | 2019-10-12 14:53 | History & Physical Report ---
Date of Service October 12, 2019 Assessment & Plan (1) Acute respiratory failure with hypoxia: (2) Pleural effusion, left: This is a 74-year-old male who has significant past medical history of insulin- dependent T2DM, HTN, HLD, hypothyroidism, history of prostate cancer, history of bladder CA who presents to ED secondary to worsening shortness of breath times several weeks. In ED patient was found to be hypoxic requiring 3 L of O2 via NC. He also was tachycardic. Lab work notable for H&H 11.6 and 30.0, platelet 236, BUN 64, creatinine 2.81, glucose 123, elevated mag and fossa 2.6 and 5.3, globulin elevated 4.4. Chest x-ray revealed large left pleural effusion with complete opacification of the left hemithorax and a subtle shift to the right. Chest CT: No large 5.3 cm left breast mass, Left axillary lymphadenopathy consistent with metastatic disease, large left pleural effusion occupying the entire left hemithorax with compressive atelectasis and mild right modesty no shift. Mild left pleural thickening likely representing pleural metastatic disease, scattered metastatic disease in the osseous structures including destruction at T10 with mild pathologic compression fracture, multiple right- sided pulmonary nodules consistent with metastatic disease. In ED he received 10 mg IV dexamethasone, guaifenesin, albuterol 500 mL IVF. Admit to PCU continue O2 supplementation consult pulmonology for likely thoracentesis CT scan abd/pelvis for further malignant work up does not appear to be infectious afebrile, wbc WNL, lack of URI sx antibiotics not warranted at this time, monitor concerning for malignant effusion Discussed with patient regarding above findings, assessment and treatment plans and he agrees with above. He is a FULL Code. (3) RAUL (acute kidney injury): baseline cr 1.0-1.4 Creatinine 09/13 was 1.4, creatinine 03/19 was 1.0 BUN/creatinine 64 and 2.81 today Hold nephrotoxic agents including HCTZ, losartan, metformin He received 500 IVF in ED, gentle IV hydration at 60 cc/h Nephrology consulted (4) Large mass of breast: pt with 5.3 CM L breast mass per CT mass is fixed with associated L axillary, fixed/matted adenopathy with extensive lymphedema to LUE obtain US of JULIO Pitt to discuss with radiology need for US guided Bx of L breast mass (5) Pathologic compression fracture of thoracic vertebra: Per CT results with scattered metastatic disease of the visualized osseous structures including a destructive lesion at T10 resulting in mild pathologic compression fracture pt asymptomatic, no pain monitor (6) Diabetes mellitus, type II: Last A1c 7.2 09/14/2019 Hold metformin, Januvia and glyburide Lantus/NovoLog per protocol Expect hyperglycemia the next 24-48 hrs. in setting of dexamethasone administration in ED (7) Hypertension: Blood pressure controlled Hold HCTZ and losartan in setting of RAUL Hold amlodipine for now due to blood pressure in the lower 100s Reassess and resume as able (8) Hyperlipidemia: continue statin (9) Asthma: no acute exac continue symbicort, prn alb (10) History of bladder cancer: Follows Dr. Torres has cystoscopies regularly, last 06/2019 which was negative (11) History of prostate cancer: Follows Dr. Torres PSA 0.73 05/2019 (12) DVT prophylaxis: SCD/TEDS for now due to likely thoracentesis assess daily need for chemical prophylaxis Disposition: admit to tele; case management consulted as patient will need multidisciplinary care coordinated at discharge Follow up: PCP Dr. Gaming upon discharge Pt was seen and examined in collaboration with Dr. Pitt, please see addendum History of Present Illness Chief Complaint: SOB x several weeks. Primary Care Provider: Tamiko Gaming, DO This is a 74-year-old male who has significant past medical history of insulin- dependent T2DM, HTN, HLD, hypothyroidism, history of prostate cancer, history of bladder CA who presents to ED secondary to worsening shortness of breath times several weeks. Patient states he was seen and evaluated by PCP on 09/29 and diagnosed with asthma exacerbation. He was placed on prednisone and inhaler titrated from Flovent to Symbicort. He noticed no significant improvement with breathing and therefore presented to ED today. He states other than his breathing he otherwise, "feels well." He denies any recent fever, chills, sweats, lightheadedness, dizziness, syncope, chest pain, shortness of breath, cough, hemoptysis, nausea, vomiting, abdominal pain, change in bowel or urinary habits. He has lost approximately 10 pounds over the last 2 to 3 months. He also elicits a left breast mass that he has had for several years. 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 He does have a prior history of prostate and bladder cancer which he is follows Dr. Torres. He had a cystoscopy and PSA done within the last several months which were both unremarkable. He denies any family history of breast cancer. Overall appetite is been diminished over the last several weeks. He has been using his Symbicort and albuterol daily without improvement in shortness of breath. In ED patient was found to be hypoxic requiring 3 L of O2 via NC. He also was tachycardic. Lab work notable for H&H 11.6 and 30.0, platelet 236, BUN 64, creatinine 2.81, glucose 123, elevated mag and fossa 2.6 and 5.3, globulin elevated 4.4. Chest x-ray revealed large left pleural effusion with complete opacification of the left hemithorax and a subtle shift to the right. Chest CT: No large 5.3 cm left breast mass, Left axillary lymphadenopathy consistent with metastatic disease, large left pleural effusion occupying the entire left hemithorax with compressive atelectasis and mild right modesty no shift. Mild left pleural thickening likely representing pleural metastatic disease, scattered metastatic disease in the osseous structures including destruction at T10 with mild pathologic compression fracture, multiple right- sided pulmonary nodules consistent with metastatic disease. In ED he received 10 mg IV dexamethasone, guaifenesin, albuterol 500 mL IVF. Allergies Allergy/AdvReac Type Severity Reaction Status Date / Time Sulfa (Sulfonamide Allergy Unknown unknown Verified 10/12/19 13:08 Antibiotics) told by allergists after testing -sulfa allergy Home Medications Home Medications Medication Instructions Recorded Confirmed Type Januvia 100 mg PO QDL 05/23/18 10/12/19 History Lantus U-100 Insulin 15 unit SUBCUT QAM 05/23/18 10/12/19 History albuterol sulfate 2 puff INHALATION QID PRN 05/23/18 10/12/19 History fluticasone propionate [Flonase 2 spray INTRANASAL DAILY PRN 05/23/18 10/12/19 History Allergy Relief] metformin 1,000 mg PO BIDM 05/23/18 10/12/19 History amlodipine 2.5 mg PO HS 10/12/19 10/12/19 History budesonide-formoterol [Symbicort] 2 puff INHALATION BID 10/12/19 10/12/19 History escitalopram oxalate 20 mg PO HS 10/12/19 10/12/19 History finasteride 5 mg PO HS 10/12/19 10/12/19 History glimepiride 1 mg PO QDD 10/12/19 10/12/19 History glimepiride 2 mg PO QDD 10/12/19 10/12/19 History hydrochlorothiazide 25 mg PO QAM 10/12/19 10/12/19 History levothyroxine 88 mcg PO QAM 10/12/19 10/12/19 History losartan 100 mg PO QAM 10/12/19 10/12/19 History rosuvastatin 20 mg PO QDL 10/12/19 10/12/19 History Past Med/Surg History Medical History Anxiety Asthma Bifascicular block RBBB + LAFB. HAD ONE TIME CONSULTATION WITH DR. MORALES IN 2014. NORMAL ECHO 2011. Diabetes mellitus, type II On insulin and PO meds History of prostate cancer 7 YEARS AGO, HAD 45 LUPRON INJECTIONS Hyperlipidemia Hypertension Hypothyroidism Malignant neoplasm of bladder neck Surgical History History of adenoidectomy History of cystoscopy TURBT PROCEDURE, MULTIPLE CYSTOS History of herniorrhaphy History of tonsillectomy Family History Mother Diabetes Social History Smoking Status: Never smoker Second Hand Exposure: No; Hx Alcohol Use: No Hx Substance Use: No Preferred Language: [place] Zealander Communication Ability: Effective Classified Ad Taker Required: No Beliefs That Will Affect Care: None Current Living Situation: Spouse Feels Safe at Home: Yes Review of Systems Review of Systems: All systems reviewed & are unremarkable except as noted in HPI & below Physical Exam Physical Exam: Constitutional: WD/WN, M, vitals as above, NAD, sitting up in bed, pleasant, conversing easily Head: Normocephalic, Atraumatic Eyes: PERRL, conjunctivae normal, anicteric sclerae ENMT: external ear and nose normal, oropharynx normal dry mucous membranes Neck: trachea midline, no thyromegaly normal visual inspection Respiratory: On O2 via NC, increased respiratory effort, absent breath sounds on left, right lung clear to auscultation with mild expiratory wheeze, no rales rhonchi noted, no accessory muscle use Cardiovascular: Tachycardic rate, regular rhythm,no murmur, left upper extremity lymphedema noted, no warmth or pain to palpation, no lower extremity edema Vessels: no JVD or carotid bruit Chest: Large left breast mass, lateral, fixed, multiple fixed axillary lymph nodes palpated Abdomen: Protuberant abdomen, normal bowel sounds, soft, nontender, no hepatosplenomegaly Musculoskeletal: no cyanosis or clubbing, extremities motor strength 5/5 Skin: no rashes, warm and dry normal turgor Neurologic: PERRL, EOMI, accommodation nl, no face palsy, no dysarthria CN's II-XI intact bilaterally and moves all extremities Psychiatric: A+Ox3, euthymic affect Lymphatic: + L axillary fixed, firm, non painful adenopathy palpated, no cervical or axillary lymphadenopathy : deferred Results & Data Results & Data ([facility]) Vital Signs (Past 12 Hours) Vital Signs Temp Pulse Pulse Resp BP Pulse Ox 10/12/19 14:30 100 H 31 H 108/88 94 10/12/19 13:31 90 24 91/52 L 96 10/12/19 13:01 101 H 14 113/97 92 10/12/19 12:49 92 H 20 98 10/12/19 12:40 100 H 27 H 107/63 97 10/12/19 11:54 94 H 18 98 10/12/19 11:31 92 H 32 H 125/69 88 L 10/12/19 11:26 36.9 C 94 H 18 125/69 86 L Laboratory Results Short CBC 10/12/19 10/12/19 Range/Units 12:25 12:35 WBC 8.49 (4.8-10.8) K/uL Hgb 11.6 L (14.0-18.0) g/dL Hct 38.0 L (42-52) % Plt Count 236 (130-400) K/uL Creatinine 2.81 H (0.6-1.4) mg/dl BMP 10/12/19 12:35 Sodium 138 Potassium 3.8 Chloride 104 Carbon Dioxide 24 BUN 64 H Creatinine 2.81 H Glucose 123 H Calcium 9.1 Cardiac Enzymes 10/12/19 Range/Units 12:35 Troponin I < 0.015 (0-0.045) ng/ml Liver Function 10/12/19 Range/Units 12:35 Total Bilirubin 0.4 (0.2-1) mg/dl Direct Bilirubin 0.1 (0-0.2) mg/dl AST 46 H (15-37) U/L ALT 40 (12-78) U/L Alkaline Phosphatase 98 (45-117) U/L Albumin 3.0 L (3.4-5.0) gm/dl Diagnostic Findings Chest CT: IMPRESSION: 1. A 5.3 cm left breast mass with associated skin thickening and subcutaneous infiltration of the breast suspicious for lymphangitic involvement. 2. Left axillary lymphadenopathy consistent with metastatic disease. 3. Large left pleural effusion occupying the entire left hemithorax resulting in compressive atelectasis of the left lung, moderate flattening of the heart, and right mediastinal shift. There is mild left pleural thickening/enhancement. Therefore, this likely represents pleural metastatic disease with a malignant pleural effusion. 4. Scattered metastatic disease within the visualized osseous structures including a destructive lesion at T10 resulting in a mild pathologic compression fracture. 5. Healing left lateral ninth rib fracture. This is also likely pathologic. 6. Multiple right-sided pulmonary nodules consistent with metastatic disease. CXR: IMPRESSION: Complete opacification of left hemithorax with subtle shift to the right. This suggests the presence of a pleural effusion with associated left lung atelectasis/consolidation. The left lung mass cannot be excluded. Further workup is advocated. Medications Administered Discontinued Medications Albuterol (Albut/Ipratrop 3mg/0.5mg Neb 3 Ml Vial) 3 ml NEB NOW STA Stop: 10/12/19 11:50 Last Admin: 10/12/19 12:49 Dose: 3 ml Documented by: [id number] Dexamethasone (Dexamethasone Sod Inj 10 Mg/Ml Vial) 10 mg IV NOW ONE Stop: 10/12/19 11:48 Last Admin: 10/12/19 12:58 Dose: 10 mg Documented by: [id number] Guaifenesin (Guaifenesin 600 Mg Tabcr) 600 mg PO NOW STA Stop: 10/12/19 11:50 Last Admin: 10/12/19 12:58 Dose: 600 mg Documented by: [id number] Sodium Chloride (Nss) 500 mls @ 999 mls/hr IV .Q31M ONE Stop: 10/12/19 12:17 Last Infusion: 10/12/19 13:36 Dose: 0 mls/hr Documented by: [id number] Admin: 10/12/19 12:58 Dose: 999 mls/hr Documented by: [id number] ECG Rate (beats per minute): 92 Rhythm: normal sinus Findings: + RBBB Code Status & VTE Plan Code Status Full Code VTE Prophylaxis Plan VTE Prophylaxis will be ordered: Yes Supervising Physician Co-Signing Physician Notes Attending addendum Patient seen and examined, care coordinated with Zakia Morrissey PA-C This is a 74-year-old male admitted with complaint of progressive shortness of breath, dyspnea on exertion Was hypoxic and tachycardic in ER Chest x-ray shows large left-sided pleural effusion with complete opacification of left hemithorax with mediastinal shift to right CT chest noncontrast large 5.3 cm left breast mass, left axilla lymphadenopathy consistent with metastatic disease Prior history of prostate and bladder cancer, Has been following with urology closely, last physical exam, PSA level few months ago was within normal limit Patient also found to be in acute renal failure with creatinine elevated 2.8 Prior creatinine 1 Concern for possible metastatic malignancy Pulmonology consulted for pleural effusion thoracentesis and assess for cytology for malignant pleural effusion Will need FNA of left breast mass and left axillary lymph node next The abdomen pelvis noncontrast ordered to assess any underlying pathology, Nephrology consulted for acute renal failure CODE STATUS discussed with patient, full code Please refer to further documentation by Zakia Morrissey PA-C for discussion of other medical issues Kaitlin Pitt MD
--- NOTE | 2019-10-12 15:16 | Electrocardiogram Report ---
Test Reason : Blood Pressure : / mmHG Vent. Rate : 092 BPM Atrial Rate : 092 BPM P-R Int : 168 ms QRS Dur : 128 ms QT Int : 370 ms P-R-T Axes : 035 -57 063 degrees QTc Int : 457 ms Normal sinus rhythm Left axis deviation Right bundle branch block Abnormal ECG No previous ECGs available Confirmed by Jose Alfredo Dolan ([id number]) on 10/12/2019 3:16:20 PM Referred By: REFERRED SELF Confirmed By:Jose Alfredo Dolan
--- NOTE | 2019-10-12 16:53 | XRay Report ---
XR chest 1V portable CLINICAL HISTORY: S/P Thoracentesis COMPARISON STUDY: 10/12/2019 FINDINGS: A left-sided pleural pigtail drainage catheter is visualized. The left hemithorax remains o pacified. There is decreased mediastinal shift to the right. Right lung reticulonodular interstitial thickening persists.[ IMPRESSION: 1. Interval placement of a left pleural pigtail catheter. 2. Decreasing mediastinal shift to the right 3. Persistent opacification of the left hemithorax ACT 112: Negative or not required by law. Electronically signed by: Enrique Rm M.D. 10/12/2019 4:51 PM
--- NOTE | 2019-10-12 17:05 | Pulmonary Consultation ---
Date of Consultation October 12, 2019 Assessment & Plan (1) Large mass of breast: (2) Pleural effusion, left: (3) Acute respiratory failure with hypoxia: Impression: 74-year-old male presenting with massive left-sided pleural effusion and breast mass. Findings are highly concerning for metastatic breast cancer. Recommendations: 1. The patient underwent placement of a 14 [place] pigtail catheter in the left pleural space. We evacuated approximately 3 L of fluid under gravity. He did e xperience some coughing so will clamp the tube and drain 1 L every 2-4 hours based on clinical symptoms with a repeat chest x-ray in the morning. Pleural fluid will be sent for cytology, Gram stain and culture, LDH, pH, total protein, glucose, and cell count differential. 2. Likely metastatic cancer: Recommend radiation oncology consult as well as medical oncology consult. 3. Depending on reexpansion of the lung and reaccumulation of fluid, may consider transition to a Pleurx catheter for outpatient management. Management of the patient's other medical issues deferred to the primary serv ice. History of Present Illness History of Present Illness Asked by hospitalist service to assist in evaluation management this patient with a massive left-sided pleural effusion. History is obtained from review electronic medical record, discussion with the admitting provider, and discussion with the patient at bedside. The patient is a very pleasant 74-year-old male with no significant tobacco history who was brought to the emergency room today for shortness of breath. He states he has had progressive shortness of breath over the last several months and this is been worse when he bends over to tie shoes or climbs a flight of stairs. He is not had any fevers chills or night sweats. He denies any history of trauma. No chest pain or palpitations. The patient has had a slowly enlarging left breast mass. He mentioned this to his primary care provider several months ago who recommended a mammogram. The patient failed to follow-up on these recommendations. Over the last several days he has noted progressive swelling of his left hand and arm. He called the paramedics today due to increasing shortness of breath and was found to be profoundly hypoxemic. He was brought to the emergency room where chest x-ray and CT scan revealed opacification of the left hemithorax. He was placed on oxygen and states he feels somewhat better. Allergies Allergy/AdvReac Type Severity Reaction Status Date / Time Sulfa (Sulfonamide Allergy Unknown unknown Verified 10/12/19 13:08 Antibiotics) told by allergists after testing -sulfa allergy Home Medications Home Medications Medication Instructions Recorded Confirmed Type Januvia 100 mg PO QDL 05/23/18 10/12/19 History Lantus U-100 Insulin 15 unit SUBCUT QAM 05/23/18 10/12/19 History albuterol sulfate 2 puff INHALATION QID PRN 05/23/18 10/12/19 History fluticasone propionate [Flonase 2 spray INTRANASAL DAILY PRN 05/23/18 10/12/19 History Allergy Relief] metformin 1,000 mg PO BIDM 05/23/18 10/12/19 History amlodipine 2.5 mg PO HS 10/12/19 10/12/19 History budesonide-formoterol [Symbicort] 2 puff INHALATION BID 10/12/19 10/12/19 History escitalopram oxalate 20 mg PO HS 10/12/19 10/12/19 History finasteride 5 mg PO HS 10/12/19 10/12/19 History glimepiride 1 mg PO QDD 10/12/19 10/12/19 History glimepiride 2 mg PO QDD 10/12/19 10/12/19 History hydrochlorothiazide 25 mg PO QAM 10/12/19 10/12/19 History levothyroxine 88 mcg PO QAM 10/12/19 10/12/19 History losartan 100 mg PO QAM 10/12/19 10/12/19 History rosuvastatin 20 mg PO QDL 10/12/19 10/12/19 History Patient History Medical History Anxiety Asthma Bifascicular block RBBB + LAFB. HAD ONE TIME CONSULTATION WITH DR. MORALES IN 2015. NORMAL ECHO 2011. Diabetes mellitus, type II On insulin and PO meds History of prostate cancer 7 YEARS AGO, HAD 45 LUPRON INJECTIONS Hyperlipidemia Hypertension Hypothyroidism Malignant neoplasm of bladder neck Surgical History History of adenoidectomy History of cystoscopy TURBT PROCEDURE, MULTIPLE CYSTOS History of herniorrhaphy History of tonsillectomy Family History Mother Diabetes Social History Smoking Status: Never smoker Second Hand Exposure: No; Hx Alcohol Use: No Hx Substance Use: No Preferred Language: Omani Communication Ability: Effective Health Care Aide Required: No Beliefs That Will Affect Care: None Current Living Situation: Spouse Feels Safe at Home: Yes Review of Systems Review of Systems: Please refer to admission H&P. No additions or deletions Physical Exam Constitutional: WD/WN, vitals as above Neck: Deviation of the trachea to the right. Some distended neck veins. No obvious pulses Respiratory: normal respiratory effort Diminished breath sounds with dullness to percussion in the left hemithorax Cardiovascular: Rate/Rhythm: regular rate Heart Sounds: normal S1 and normal S2 Extremities: + edema Marked edema of the left upper extremity extending down to the hands Chest (Breasts): Additional Comments: Ulcerative lesion of the left breast/nipple with puckering of the skin and large mass easily palpable as well as axillary adenopathy Gastrointestinal (Abdomen): normal bowel sounds, soft, nontender, no hepatosplenomegaly Musculoskeletal: Extremities: extremities normal to inspection Skin: no rashes, warm and dry Neurologic: Nonfocal exam Lymphatic: no cervical lymphadenopathy Results & Data Results & Data ([facility]) Vital Signs (Past 12 Hours) Vital Signs Temp Pulse Pulse Resp BP Pulse Ox 10/12/19 15:30 96 H 28 H 125/71 93 10/12/19 15:00 94 H 24 108/70 96 10/12/19 14:30 100 H 31 H 108/88 94 10/12/19 13:31 90 24 91/52 L 96 10/12/19 13:01 101 H 14 113/97 92 10/12/19 12:49 92 H 20 98 10/12/19 12:40 100 H 27 H 107/63 97 10/12/19 11:54 94 H 18 98 10/12/19 11:31 92 H 32 H 125/69 88 L 10/12/19 11:26 36.9 C 94 H 18 125/69 86 L Laboratory Results 10/12/19 12:25 10/12/19 12:35 Diagnostic Findings Chest x-ray and CT scan today were independently reviewed. The chest x-ray demonstrated complete opacification of the left hemithorax. Next CT of the chest demonstrated a massive left-sided pleural effusion with complete atelectasis of the left lung and significant mediastinal shift to the right. There was also an associated left breast mass with associated skin thickening and subcutaneous infiltration as well as left axillary adenopathy and scattered lytic lesions including a destructive lesion in T10 with multiple right-sided pulmonary nodules. PG Care Time/CCT Total # of Minutes Spent Total Time Spent with Patient: Total time spent is greater than 50% in coordination of care (as documented) at patient's floor/unit and/or counseling patient: Coding Level of Care Code 47827 Initial Inpt Care Lvl 3 Diagnoses Large mass of breast N63.0 Pleural effusion, left J90 Acute respiratory failure with hypoxia J96.01 Time Spent (min) 45
--- NOTE | 2019-10-12 17:09 | Procedure Note ---
Procedure Note Date of Service October 12, 2019 Procedure: 14 Wolof pigtail skater catheter placement in the left hemithorax under ultrasound guidance [employer] Supervisor: Dr. Paul Neff Indication: Pleural effusion Consent: Signed by patient and verified with timeout prior to procedure Anesthesia: 5 mL's 1% lidocaine without epinephrine local. Procedure: Consent was verified and timeout performed. Appropriate imaging studies were reviewed prior to the procedure. Patient was placed in a seated position and limited thoracic ultrasound was performed of the bilateral chest. See separate imaging. Massive left-sided effusion was noted with no significant pleural fluid noted on the right. Site appropriate for thoracentesis was selected. The skin was prepped and draped in normal sterile fashion. Lidocaine was used for local analgesia. Fluid was aspirated via the finder needle. A larger 18-gauge needle was then used to enter the pleural space. Once the pleural space was entered, a wire was passed through the 18-gauge needle into the pleural space. The needle was withdrawn with the wire being left in place. A skin amos was made over the wire insertion site and a 14 Wolof dilator was passed over the wire into the pleural space without difficulty. The dilator was then removed and a 14 Wolof pigtail skater catheter was advanced over the wire into the pleural space. The wire was withdrawn. There was serosanguineous pleural fluid under pressure. The catheter was secured in place with 1-0 silk suture and a s terile dressing. The tube was connected to a gravity base suction system and approximately 3 L of sanguinous fluid was removed at which point time the patient complained of mild chest discomfort. The tube was clamped at that point time and will continue to undergo serial drainage over the next 12 to 24 hours with follow-up imaging. Fluid was sent for cytology, Gram stain and culture, cell count differential, pH, LDH, glucose, total protein. Follow-up imaging demonstrated the pigtail catheter to be in good position. There was minimal reexpansion of the lung with drainage of 3 L of fluid. The patient tolerated the procedure well without obvious complication Coding CPT Codes Pulmonary/Thoracic - Pulmonary and Thoracic: 93180 Pleural drainage w/imaging ([id number]) Pulmonary/Thoracic - Pulmonary and Thoracic: 27539 US, Chest, real time with imaging documentation ([id number]) [facility] [place]odes (Charges) Pulmonary/Thoracic Procedure 1: Pulmonary and Thoracic: 04131 Pleural drainage w/imaging Procedure 2: Pulmonary and Thoracic: 02716 US, Chest, real time with imaging documentation
[2019-10-12 17:29] LABS: Amylase Pleural Fluid 36 U/L; Glucose Pleural Fluid 25 mg/dl
[2019-10-12 17:38] LABS: LDH Pleural Fluid 1554 U/L; Total Protein Pleural Fluid 4.4 g/dl
[2019-10-12 17:39] LABS: Appearance Pleural Fluid CLOUDY; Basophils, Fluid 0 %; Color Pleural Fluid RED; Eosinophils, Fluid 0 %; Lymphocytes, Fluid 52 %; Mono,Macrophage,Mesothelial 33 %; Neutrophils, Fluid 15 %; RBC Pleural Fluid (A) 187000 /uL; Source Pleural Fluid LEFT LUNG; WBC Pleural Fluid (A) 1270 /uL
[2019-10-12] MEDS ORDERED: CARBOHYDRATES FOR HYPOGLYCEMIA PO PRN (18:58)
[2019-10-12] MEDS ORDERED: FUROSEMIDE 40 MG/4 ML VIAL IV PRN (18:58)
[2019-10-12] MEDS ORDERED: GLUCOSE 10 TABS/TUBE PO PRN (18:58)
[2019-10-12] MEDS ORDERED: ALBUTEROL HFA 8 GM INHALER INH PRN (18:58)
[2019-10-12] MEDS ORDERED: GLUCOSE 40% GEL 15 GM TUBE PO PRN (18:58)
[2019-10-12] MEDS ORDERED: FLUTICASONE PROPIONATE NA SPR 16 GM BTL PRN (18:58)
[2019-10-12] MEDS ORDERED: GLUCAGON FOR INJ 1 MG VIAL SQ PRN (18:58)
[2019-10-12] MEDS ORDERED: ACETAMINOPHEN 325 MG TAB PO PRN (18:58)
[2019-10-12] MEDS ORDERED: ONDANSETRON INJ 2 MG/ML 2 ML VIAL IV PRN (18:58)
[2019-10-12] MEDS ORDERED: POLYETHYLENE (MIRALAX) 17 GM PACK PO PRN (18:58)
[2019-10-12] MEDS ORDERED: DEXTROSE 50% 50 ML SYRINGE IV PRN (18:58)
--- NOTE | 2019-10-12 19:03 | CT Scan Report ---
CT SCAN OF THE ABDOMEN AND PELVIS WITHOUT CONTRAST CLINICAL HISTORY: Metastatic workup. Pathologic adenopathy is suspected breast carcinoma. COMPARISON STUDY: May 2010 TECHNIQUE: CT scan of the abdomen and pelvis was performed from the lung bases to the proximal femurs . Images are reviewed in the axial, sagittal, and coronal planes. IV contrast was not administered fo r this examination. A dose lowering technique was utilized adhering to the principles of ALARA. CT DOSE: 753.06 mGy.cm FINDINGS: Lower chest: There is a left pleural effusion with left lower lobe atelectasis/consolidation. There a re right lower lobe atelectatic changes. There is a partially visualized 54 mm left breast mass. Ther e is trace right pleural fluid. There is scattered tiny right lung nodules. Liver: No hepatic masses are visualized on this noncontrast examination. Gallbladder: Not visualized presumed surgically absent Spleen: Normal in size and attenuation. Pancreas: Unremarkable. Adrenal glands: Unremarkable. Kidneys: There is a 2.5 cm right renal cyst. No renal calculi are visualized. There is no hydronephro sis. Bowel: There are no transition zones to indicate bowel obstruction. There is no evidence of acute div erticulitis. The appendix appears normal. Borderline wall thickening involving the ascending colon is likely secondary to a nondistended segment. Peritoneum: There is no intraperitoneal free air or abdominal ascites. There are bilateral fat-contai angelina inguinal hernias left larger than right. Vasculature: The abdominal aorta is normal in course and caliber. Adenopathy: None. Pelvic viscera: Prostate radiotherapy seeds are visualized. Skeletal structures: There is a T9 compression fracture, possibly pathologic. There are multifocal ad ditional areas of subtle sclerosis. There is a stable 22 mm lytic lesion within the right femoral nec k. There is a 6 mm lytic focus involving the lateral cortex of the left iliac wing. IMPRESSION: 1. No evidence of bowel obstruction. No evidence of free air 2. No acute inflammatory changes within the abdomen and pelvis 3. Bilateral fat-containing inguinal hernias 4. 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 No evidence of intra-abdominal metastatic disease 6. Partially visualized large left breast mass 7. Large left pleural effusion, possibly malignant with indwelling left-sided chest tube. Left lower lobe compressive atelectasis 8. Trace right pleural effusion with right basilar atelectatic change 9. Tiny right lung pulmonary nodules ACT 112: Negative or not required by law. Electronically signed by: Enrique Rm M.D. 10/12/2019 7:01 PM
[2019-10-12] MEDS ORDERED: SODIUM CHLORIDE 0.9% 1000ML 1,000 ML IV SCH (20:00)
--- NOTE | 2019-10-12 20:06 | Nephrology Consultation ---
Date of Consultation October 12, 2019 Assessment & Plan (1) RAUL (acute kidney injury): Renal function have been worsening from his baseline already in late August when he presented with creatinine 1.4 up from 1.0 on prior tests most recently February 2019. He was taking losartan and metformin, hydrochlorothiazide all as an outpatient by prescription as well as large amounts of Advil. No indication for acute dialysis. He does have elevated phosphorus and low albumin but basic chemistries generally acceptable and for volume overload from the effusion being treated with left pigtail catheter and already over 3 L negative. This is more than likely medication related both from prescription meds and NSAIDs in the setting of worsening effusions. However malignancy can also cause multiple glomerulopathies (as can nsaids) and will eval for these -bmp in am -ua for tonight -bladder scan prn -No NSAIDs -Continue to hold metformin, losartan, hydrochlorothiazide Present on Admission?: Yes (2) Pleural effusion, left: per pulmonary Present on Admission?: Yes (3) Large mass of breast: Left 5.3 cm mass associated with left axillary asked and matted adenopathy and extensive left upper extremity lymphedema: For possible ultrasound-guided biopsy of mass; onc and rad onc c/s pending -Defer to primary service careful monitoring / prophylaxis for PE for which he is at heightened risk Present on Admission?: Yes History of Present Illness Reason for Consultation: raul Requesting Physician: Dr Pitt Attending Physician: Dr Pitt History of Present Illness 74 y/o M whom I'm asked to see for RAUL after he was admitted for same in setting of other clinical findings suspicious for metastatic breast cancer. Presented with 2 wks of worsening exertional dypsnea; was hypoxic and tachycardic in the emergency department and found to have a massive left pleural effusion which was tapped for 3 L as well as a large left breast mass. Baseline creatinine 1.0. Presenting creatinine 2.8 on outpatient metformin, hydrochlorothiazide, Januvia. Also tells me he was taking Advil 2 tabs 3-4 times a day for muscle pain attributed to tachypnea with 10-12 doses like this over the past 2 weeks. He saw his family doctor 10 days back and was treated for asthma initially. Other medical history includes hypertension, diabetes on oral meds, prostate cancer 2010, bladder cancer followed by Dr. Torres with last surveillance cystoscopy in May 2019 and unremarkable. His most recent creatinine was 1.4 on September 14, 2019 at [facility] outpatient clinic. Previously however creatinine ran 1.0-1.2, most recently in February 2019. Allergies Allergy/AdvReac Type Severity Reaction Status Date / Time Sulfa (Sulfonamide Allergy Unknown unknown Verified 10/12/19 13:08 Antibiotics) told by allergists after testing -sulfa allergy Home Medications Home Medications Medication Instructions Recorded Confirmed Type Januvia 100 mg PO QDL 05/23/18 10/12/19 History Lantus U-100 Insulin 15 unit SUBCUT QAM 05/23/18 10/12/19 History albuterol sulfate 2 puff INHALATION QID PRN 05/23/18 10/12/19 History fluticasone propionate [Flonase 2 spray INTRANASAL DAILY PRN 05/23/18 10/12/19 History Allergy Relief] metformin 1,000 mg PO BIDM 05/23/18 10/12/19 History amlodipine 2.5 mg PO HS 10/12/19 10/12/19 History budesonide-formoterol [Symbicort] 2 puff INHALATION BID 10/12/19 10/12/19 History escitalopram oxalate 20 mg PO HS 10/12/19 10/12/19 History finasteride 5 mg PO HS 10/12/19 10/12/19 History glimepiride 1 mg PO QDD 10/12/19 10/12/19 History glimepiride 2 mg PO QDD 10/12/19 10/12/19 History hydrochlorothiazide 25 mg PO QAM 10/12/19 10/12/19 History levothyroxine 88 mcg PO QAM 10/12/19 10/12/19 History losartan 100 mg PO QAM 10/12/19 10/12/19 History rosuvastatin 20 mg PO QDL 10/12/19 10/12/19 History Patient History Medical History Anxiety Asthma Bifascicular block RBBB + LAFB. HAD ONE TIME CONSULTATION WITH DR. MORALES IN 2014. NORMAL ECHO 2011. Diabetes mellitus, type II On insulin and PO meds History of prostate cancer 7 YEARS AGO, HAD 45 LUPRON INJECTIONS Hyperlipidemia Hypertension Hypothyroidism Malignant neoplasm of bladder neck Surgical History History of adenoidectomy History of cystoscopy TURBT PROCEDURE, MULTIPLE CYSTOS History of herniorrhaphy History of tonsillectomy Family History Mother Diabetes Social History Smoking Status: Never smoker Second Hand Exposure: No; Hx Alcohol Use: Yes Alcohol type: beer Hx Substance Use: No Preferred Language: [place]an Communication Ability: Effective Desktop Engineer Required: No Beliefs That Will Affect Care: Restoration Restoration Beliefs: voodoo Current Living Situation: Spouse Current Living Situation Comment: lives w/ Feels Safe at Home: Yes Review of Systems Review of Systems: All systems reviewed & are unremarkable except as noted in HPI & below Respiratory: + dyspnea and + dyspnea on exertion; no cough, no pain on i nspiration and no wheezing Cardiovascular: + edema (L hand); no chest pain and no chest pain at rest Genitourinary: no dysuria and no hematuria Musculoskeletal: + myalgia (L chest with tachypnea) Physical Exam Constitutional: well developed and well nourished; no acute distress Eyes: EOM intact bilaterally ENMT: Ears: no external ear abnormality Nose: no external nose abnormality Mouth: + dry oral mucous membranes Neck: no nuchal rigidity Respiratory: normal respiratory effort and symmetric chest movement; no respiratory distress, no labored breathing and not tachypneic Auscultation: + diminished lung sounds and + crackles; + lungs not clear to auscultation On 5 L nasal cannula with left-sided pigtail catheter reining pleural space Cardiovascular: RRR, no murmur, no edema Gastrointestinal (Abdomen): Inspection/Auscultation: normal bowel sounds Percussion/Palpation: abdomen soft; abdomen nontender Musculoskeletal: Extremities: strength 5/5 throughout Skin: no rashes, warm and dry Neurologic: atkinson, fluent speech, no tremor Psychiatric: A+Ox3, euthymic affect Genitourinary: No Myers Results & Data ([facility]) Vital Signs (Past 12 Hours) Vital Signs Temp Pulse Pulse Resp BP BP Pulse Ox 10/12/19 17:18 86 18 123/71 95 10/12/19 15:30 96 H 28 H 125/71 93 10/12/19 15:00 94 H 24 108/70 96 10/12/19 14:30 100 H 31 H 108/88 94 10/12/19 13:31 90 24 91/52 L 96 10/12/19 13:01 101 H 14 113/97 92 10/12/19 12:49 92 H 20 98 10/12/19 12:40 100 H 27 H 107/63 97 10/12/19 11:54 94 H 18 98 10/12/19 11:31 92 H 32 H 125/69 88 L 10/12/19 11:26 36.9 C 94 H 18 125/69 86 L Laboratory Results 10/12/19 12:25 10/12/19 12:35 Lactate 2.5, phosphorus 5.3, magnesium 2.6 No urine studies on file Thoracentesis fluid: 1270 WBCs and 187,000 RBCs; 52% lymphocytes; pH 7.[address] chest abdomen pelvis non con 1. No evidence of bowel obstruction. No evidence of free air 2. No acute inflammatory changes within the abdomen and pelvis 3. Bilateral fat-containing inguinal hernias 4. 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 No evidence of intra-abdominal metastatic disease 6. Partially visualized large left breast mass 7. Large left pleural effusion, possibly malignant with indwelling left-sided chest tube. Left lower lobe compressive atelectasis 8. Trace right pleural effusion with right basilar atelectatic change 9. Tiny right lung pulmonary nodules
[2019-10-12] MEDS: INSULIN ASPART 100 UNITS/ML 3 ML PEN SC SCH ×2 (20:15→20:23)
[2019-10-12] MEDS: INSULIN GLARGINE SOLOSTAR 100 UNITS/ML 3 ML PEN SC SCH (20:20)
[2019-10-12] MEDS: FINASTERIDE 5 MG TAB PO SCH (20:21)
[2019-10-12] MEDS: ESCITALOPRAM OXALATE 20 MG TAB PO SCH (20:21)
[2019-10-12 21:34] LABS: Appearance Urine Clear (Clear); Bacteria Urine Automated Negative (Negative); Bilirubin Urine Negative (Negative); Blood Urine Negative (Negative); Color Urine Yellow; Epithelial Cell Urine Auto >30 /lpf (0-5); Glucose Urine UA Negative (Negative); Ketones Urine Negative (Negative); Leukocyte Esterase Urine Negative (Negative); Nitrite Urine Negative (Negative); Protein Urine Trace (Negative); RBC Urine Automated 0-4 /hpf (0-4); Specific Gravity Urine 1.014 (1.000-1.030); Urobilinogen Urine Negative (Negative)
[2019-10-12 21:49] LABS: Creatinine Urine Random 75.3 mg/dl; Protein Creatinine Ratio Urine 0.5 (0-0.2); Total Protein Urine Random 34.4 mg/dl (0-11.9)
[2019-10-12] MEDS ORDERED: ZOLPIDEM TARTRATE 5 MG TAB PO STA (23:47)
[2019-10-13 07:11] LABS: Basophils # (auto) 0.01 K/uL (0-0.2); Basophils % (auto) 0.1 %; Eosinophils # (auto) 0.04 K/uL (0-0.5); Eosinophils % (auto) 0.5 %; Hematocrit (blood only) 35.4 % (42-52); Hemoglobin 10.7 g/dL (14.0-18.0); Immature Granulocytes # (auto) 0.37 K/uL (0.00-0.02); Immature Granulocytes % (auto) 4.6 %; Lymphocytes # (auto) 1.32 K/uL (1.2-3.4); Lymphocytes % (auto) 16.4 %; Mean Corpuscular Hemoglobin 24.8 pg (25-34); Mean Corpuscular Hgb Conc 30.2 g/dL (32-36); Mean Corpuscular Volume 82.1 fL (80-100); Mean Platelet Volume 10.3 fL (7.4-10.4); Monocytes # (auto) 0.97 K/uL (0.11-0.59); Neutrophils # (auto) 5.36 K/uL (1.4-6.5); Neutrophils % (auto) 66.4 %; Nucleated RBC # (auto) 0.05 K/uL (0-0); Nucleated RBC % (auto) 0.7 %; Platelet Count 190 K/uL (130-400); RDW Coefficient of Variation 18.1 % (11.5-14.5); RDW Standard Deviation 53.2 fL (36.4-46.3); Red Blood Count 4.31 M/uL (4.7-6.1); White Blood Count 8.07 K/uL (4.8-10.8)
--- NOTE | 2019-10-13 07:35 | Ultrasound Report ---
ULTRASOUND LEFT UPPER EXTREMITY VENOUS CLINICAL HISTORY: Left arm swelling. COMPARISON STUDY: No priors. TECHNIQUE: Real-time, grayscale, and color Doppler sonography of the deep veins of the left upper ext remity is performed. Compression and augmentation were utilized. FINDINGS: There is no sonographic evidence of deep venous thrombosis identified in the left upper ext remity. The left internal jugular, axillary, and brachial veins are patent and normally compressible. Normal venous waveforms and augmentation are seen within the left subclavian vein. The cephalic and basilic veins are clear. The visualized radial and ulnar veins are patent. Soft tissue edema is noted in the left upper extremity. IMPRESSION: There is no sonographic evidence of deep venous thrombosis identified in the left upper e xtremity. ACT 112: Negative or not required by law. Electronically signed by: Jace Coy M.D. 10/13/2019 7:33 AM
[2019-10-13 07:37] LABS: BUN Creatinine Ratio 27.8 (10-20); Calcium 8.7 mg/dl (8.5-10.1); Creatinine Clr Calc Pharmacy 35.7 ml/min; Est GFR (African American) 32.4; Magnesium 2.2 mg/dl (1.8-2.4); Phosphorus 5.3 mg/dl (2.5-4.9); Potassium 3.9 mmol/L (3.5-5.1)
[2019-10-13] MEDS: LEVOTHYROXINE SODIUM 88 MCG TABLET PO SCH (08:00)
[2019-10-13] MEDS: FLUTICASONE/VILANTEROL 200/25MCG 14 PUFFS/INHALER INH SCH (08:28)
[2019-10-13] MEDS: INSULIN ASPART 100 UNITS/ML 3 ML PEN SC SCH ×4 (08:30→21:23)
[2019-10-13] MEDS: INSULIN GLARGINE SOLOSTAR 100 UNITS/ML 3 ML PEN SC SCH ×2 (08:37→21:22)
--- NOTE | 2019-10-13 08:48 | XRay Report ---
SINGLE VIEW CHEST CLINICAL HISTORY: Left pleural effusion. FINDINGS: An AP, portable, upright chest radiograph is compared to chest x-ray and chest CT dated 09/19. The examination is degraded by portable technique and patient rotation. The cardiomediastin al silhouette is not well evaluated. A pigtail drain is again seen at the left lung base. There is a moderate residual left pleural effusion with consolidation throughout the left upper lung. No airspac e consolidation or large pleural effusion is seen on the right. Numerous right-sided pulmonary nodule s likely representing metastatic disease. This was better characterized on yesterday's chest CT. Ther e is a small left apical pneumothorax with approximately 1.5 cm of pleural separation. There is no ri ght-sided pneumothorax. The skeletal structures are osteopenic. The bony thorax is grossly intact. IMPRESSION: 1. A pigtail catheter is again seen at the left lung base. 2. There is a small left apical pneumothorax. 3. A moderate left pleural effusion has decreased in size from yesterday. There is consolidation thro ughout the left upper lung. 3. Small right-sided pulmonary nodules are consistent with metastatic disease. This was better assess ed on yesterday's chest CT. ACT 112: Negative or not required by law. Electronically signed by: Jace Coy M.D. 10/13/2019 8:47 AM
--- NOTE | 2019-10-13 09:29 | Pulmonology Progress Note ---
Date of Service October 13, 2019 Assessment & Plan (1) Hypoxia: Impression: 74-year-old male presenting with massive left-sided pleural effusion and breast mass. Findings are highly concerning for metastatic breast cancer. History of prostate and bladder cancer as well but felt to be less likely. Primary lung also less likely. He is status post 14 Taiwanese pigtail drain placement. Pleural fluid cytology pending Recommendations: 1. Pleural effusion: Bloody and likely malignant. Await cytology. Will open drain to drain by gravity today and clamp if the patient has increasing cough, shortness of breath, or chest pain. Continue to keep the drain in place until drainage is less than 200 cc per 24 hours. If this appears to be a long-term issue, we may consider placement of an indwelling tunneled pleural catheter for long-term outpatient management. Follow-up x-ray in a.m. 2. Small pneumothorax on the lung apex. This is likely pneumo ex vacuo. Continue to follow clinically for now. Chest tube is in place. Follow-up chest x-ray in a.m. 3. Medical oncology consultation recommended once cancer is confirmed. Will likely require additional staging procedures including MRI of the brain. Management of the patient's other medical issues deferred to the primary serv ice. (2) Pleural effusion, left: (3) Abnormal CT scan of lung: Admission and Anticipated Discharge Date Admission Date: October 12, 2019 Subjective Patient seen and examined. EMR and imaging independently reviewed. The patient reports that he is doing well. Drainage was intermittent overnight. He reports his shortness of breath is better. He has multiple questions reg arding his diagnosis and next steps. No fevers chills or night sweats. He is tolerating a diet. He is not having any significant chest pain cough or sputum production. Review of Systems Review of Systems: All systems reviewed & are unremarkable except as noted in HPI & below Physical Exam Constitutional: WD/WN, vitals as above Neck: Deviation of the trachea to the right. Some distended neck veins. No obvious pulses Respiratory: normal respiratory effort Diminished breath sounds with dullness to percussion in the left hemithorax Cardiovascular: Rate/Rhythm: regular rate Heart Sounds: normal S1 and normal S2 Extremities: + edema Marked edema of the left upper extremity extending down to the hands Chest (Breasts): Additional Comments: Ulcerative lesion of the left breast/nipple with puckering of the skin and large mass easily palpable as well as axillary adenopathy Gastrointestinal (Abdomen): normal bowel sounds, soft, nontender, no hepatosplenomegaly Musculoskeletal: Extremities: extremities normal to inspection Skin: no rashes, warm and dry Neurologic: Nonfocal exam Lymphatic: no cervical lymphadenopathy Results & Data Results & Data ([facility]) Vital Signs (Past 12 Hours) Vital Signs Temp Pulse Resp BP Pulse Ox 10/13/19 07:30 36.4 C L 80 20 110/69 93 10/13/19 04:05 36.6 C 51 L 20 127/64 93 10/12/19 23:23 36.4 C L 80 24 112/62 93 Laboratory Results 10/13/19 06:56 10/13/19 06:56 Diagnostic Findings Chest x-ray today was independently reviewed. There is resolved mediastinal shift with improved aeration in the left lung however there is persistent diffuse airspace opacity and pleural fluid. The pigtail catheter appears to be in good position. There is a small apical pneumothorax, likely pneumo ex vacuo PG Care Time/CCT Total # of Minutes Spent Total Time Spent with Patient: Total time spent is greater than 50% in coordination of care (as documented) at patient's floor/unit and/or counseling patient: Coding Level of Care Code 80161 Subseq Hosp Care Lvl 3 Diagnoses Hypoxia R09.02 Pleural effusion, left J90 Abnormal CT scan of lung R91.8
[2019-10-13] MEDS: ROSUVASTATIN CALCIUM 20 MG TAB PO SCH (11:44)
[2019-10-13] MEDS: HEPARIN SOD 5,000 UNIT/0.5 ML VIAL SQ SCH ×2 (13:49→21:22)
--- NOTE | 2019-10-13 16:27 | Nephrology Progress Note ---
Date of Service October 13, 2019 Assessment & Plan (1) RAUL (acute kidney injury): Renal function had been worsening from his baseline already in late August when he presented with creatinine 1.4 up from 1.0 on prior tests most recently February 2019. On admission with fluid overload from malignant pleural effusion he had presenting creatinine 2.8; now down to 2.2 today. He was taking losartan and metformin, hydrochlorothiazide all as an outpatient by prescription as well as large amounts of Advil. No indication for acute dialysis. basic chemistries generally acceptable and for volume overload from the effusion being treated with left pigtail catheter and already over 7 L negative. RAUL is more than likely medication related both from prescription meds and NSAIDs in the setting of worsening effusions. However malignancy can also cause multiple glomerulopathies (as can nsaids) and will eval for these -bmp in am -ua for tonight -bladder scan prn -No NSAIDs -Continue to hold metformin, losartan, hydrochlorothiazide (2) Pleural effusion, left: per pulmonary; pigtail drain placed 10/11 -- still w/ large bloody output; fluid studies c/w malignancy (3) Large mass of breast: Left 5.3 cm mass associated with left axillary asked and matted adenopathy and extensive left upper extremity lymphedema: For possible ultrasound-guided biopsy of mass; onc and rad onc c/s pending -Defer to primary service careful monitoring / prophylaxis for PE for which he is at heightened risk -f/u cytology Admission and Anticipated Discharge Date Admission Date: October 12, 2019 Subjective 3.4L chest tube output; also1.8L UOP; cytology pending and staging work up planned. he is on 2LNC now but when I saw him at about 1445 he was on 5LNC. some soreness around drain site. breathing remains improved; L arm edema improved; denies voiding concerns or N/v. Review of Systems Review of Systems: All systems reviewed & are unremarkable except as noted in HPI & below Physical Exam Constitutional: well developed and well nourished; no acute distress up in chair on 02nc Eyes: EOM intact bilaterally ENMT: Ears: no external ear abnormality Nose: no external nose abnormality Mouth: + dry oral mucous membranes Neck: no nuchal rigidity Respiratory: normal respiratory effort and symmetric chest movement; no respiratory distress, no labored breathing and not tachypneic Auscultation: + breath sounds absent (L base) and + diminished lung sounds; + lungs not clear to auscultation pigtail drain L chest with bloody output Cardiovascular: RRR, no murmur, no edema Gastrointestinal (Abdomen): Inspection/Auscultation: normal bowel sounds Percussion/Palpation: abdomen soft; abdomen nontender Musculoskeletal: Extremities: strength 5/5 throughout Skin: no rashes, warm and dry Neurologic: atkinson, fluent speech, no tremor Psychiatric: A+Ox3, euthymic affect Results & Data ([facility]) Vital Signs (Past 12 Hours) Vital Signs Temp Pulse Pulse Resp BP Pulse Ox 10/13/19 15:12 36.4 C L 86 20 128/71 98 10/13/19 15:11 89 10/13/19 11:10 36.4 C L 81 18 107/53 L 91 10/13/19 08:00 72 10/13/19 07:30 36.4 C L 80 20 110/69 93 Laboratory Results 10/13/19 06:56 10/13/19 06:56
--- NOTE | 2019-10-13 17:29 | Hospitalist Progress Note ---
Date of Service October 13, 2019 Assessment & Plan (1) Acute respiratory failure with hypoxia: This is a 74-year-old male who has significant past medical history of insulin- dependent T2DM, HTN, HLD, hypothyroidism, history of prostate cancer, history of bladder CA who presents to ED secondary to worsening shortness of breath times several weeks. Secondary to malignant left-sided pleural effusion Presented with shortness of breath, hypoxia Requiring 5 L oxygen by nasal cannula (was not on home O2 Status post thoracentesis 3 L of serosanguineous fluid Patient currently has a chest tube, drain to gravity, so far drained 2 more liters of pleural effusion Cytology of pleural effusion, official report is pending, discussed with pathology, prelim report shows edema carcinoma, possible breast primary Patient may need oxygen at home, 2 step exercise should be ordered prior to discharge (2) Pleural effusion, left: Malignant pleural effusion possible secondary to metastasis: Chest x-ray revealed large left pleural effusion with complete opacification of the left hemithorax and a subtle shift to the right. Chest CT: No large 5.3 cm left breast mass, Left axillary lymphadenopathy consistent with metastatic disease, large left pleural effusion occupying the entire left hemithorax with compressive atelectasis and mild right modesty no shift. Mild left pleural thickening likely representing pleural metastatic disease, scattered metastatic disease in the osseous structures including destruction at T10 with mild pathologic compression fracture, multiple right- sided pulmonary nodules consistent with metastatic disease. Status post thoracentesis, discussion as above Breast mass: Left-sided breast mass, with fixed left axillary lymph nodes, significant left arm lymphadenopathy noted Possible metastatic breast cancer, with mets to lungs, thoracic spine Patient will need core biopsy of left axillary lymph nodes, biopsy of left breast mass-which are all done at [facility] breast cancer center as an outpatient Breast cancer center coordinator updated- Patient has prior history of prostate cancer, bladder cancer Ordered for PSA to be checked Will need follow-up with hematology oncology Case briefly discussed with [facility] hay-onc Dr. [id number]-yev office will contact patient for clinic follow-up once discharged Patient's primary care physician Dr. Garcia updated as well (3) RAUL (acute kidney injury): Acute renal failure with ATN, possible due to combination of diuretics HCTZ, losartan, Patient already been taking large number of Advil at home Creatinine 09/13 was 1.4, Admitted with creatinine 2.81 CT abdomen pelvis shows no obstructive uropathy/no metastatic malignancy in abdomen. Nephrology consulted Continued IV fluids, creatinine continues to improve Continue to hold diuretics, avoid NSAIDs and contrast studies MRI of brain with contrast was not ordered for metastatic work-up secondary to renal failure (4) Large mass of breast: High likelihood of breast cancer with mets pt with 5.3 CM L breast mass per CT mass is fixed with associated L axillary, fixed/matted adenopathy with extensive lymphedema to LUE Patient will need follow-up with breast cancer center on discharge for further diagnostic studies, staging work-up Testing or heme-onc updated for clinic follow-up as well (5) Pathologic compression fracture of thoracic vertebra: Per CT results with scattered metastatic disease of the visualized osseous st ructures including a destructive lesion at T10 resulting in mild pathologic compression fracture pt asymptomatic, no pain Limit weightbearing no more than [address] Gould consulted (6) Diabetes mellitus, type II: Last A1c 7.2 09/14/2019 Hold metformin, Januvia and glyburide Lantus/NovoLog per protocol (7) Hypertension: Blood pressure controlled Hold HCTZ and losartan in setting of RAUL Hold amlodipine for now due to blood pressure in the lower 100s (8) Hyperlipidemia: continue statin (9) Asthma: no acute exac Can develop shortness of breath dyspnea on exertion secondary to malignant ple ural effusion continue symbicort, prn alb (10) History of bladder cancer: Follows Dr. Torres has cystoscopies regularly, last 06/2019 which was negative Ordered to check PSA (11) History of prostate cancer: Follows Dr. Torres PSA 0.73 05/2019 (12) DVT prophylaxis: High risk for DVT given metastatic carcinoma possible breast primary Rate for subcu heparin CODE STATUS: Full code Disposition: Expected to be discharged home when medically stable Patient will need multidisciplinary follow-up on discharge: Pulmonology: for Pleurx catheter management Hematology oncology :for breast cancer treatment Breast cancer center follow-up for surgery further diagnostic tests and staging Following orthopedics for metastatic T10 vertebral compression fracture Admission and Anticipated Discharge Date Admission Date: October 12, 2019 Subjective Patient is sitting on the chair, has chest tube placed, says breathing is much better now Requiring 5 L oxygen via nasal cannula No chest pain or discomfort, no fever or chills Denies of any back pain Worried about his cancer diagnosis Review of Systems Review of Systems: All systems reviewed & are unremarkable except as noted in HPI & below Constitutional: no fever, no chills and no fatigue Respiratory: + dyspnea and + dyspnea on exertion; no cough Physical Exam Constitutional: WD/WN, vitals as above no acute distress Eyes: + anicteric sclerae ENMT: external ear and nose normal, oropharynx normal Neck: trachea midline, no thyromegaly Respiratory: Auscultation: + crackles, + rales and + wheezes Cardiovascular: Rate/Rhythm: regular rate and regular rhythm Extremities: no edema Gastrointestinal (Abdomen): Percussion/Palpation: abdomen soft; abdomen nontender Skin: no rashes, warm and dry Neurologic: PERRL, EOMI, accommodation nl, no face palsy, no dysarthria Psychiatric: A+Ox3, euthymic affect Results & Data Results & Data ([facility]) Vital Signs (Past 12 Hours) Vital Signs Temp Pulse Pulse Resp BP Pulse Ox 10/13/19 15:12 36.4 C L 86 20 128/71 98 10/13/19 15:11 89 10/13/19 11:10 36.4 C L 81 18 107/53 L 91 10/13/19 08:00 72 10/13/19 07:30 36.4 C L 80 20 110/69 93
[2019-10-13] MEDS ORDERED: ZOLPIDEM TARTRATE 5 MG TAB PO STA (20:06)
[2019-10-13] MEDS: ESCITALOPRAM OXALATE 20 MG TAB PO SCH (21:21)
[2019-10-13] MEDS: FINASTERIDE 5 MG TAB PO SCH (21:21)
[2019-10-14] MEDS: LEVOTHYROXINE SODIUM 88 MCG TABLET PO SCH (06:16)
[2019-10-14] MEDS: HEPARIN SOD 5,000 UNIT/0.5 ML VIAL SQ SCH ×3 (06:17→22:13)
[2019-10-14 06:33] LABS: Basophils # (auto) 0.02 K/uL (0-0.2); Basophils % (auto) 0.2 %; Eosinophils # (auto) 0.11 K/uL (0-0.5); Eosinophils % (auto) 1.4 %; Hematocrit (blood only) 35.6 % (42-52); Hemoglobin 11.5 g/dL (14.0-18.0); Immature Granulocytes # (auto) 0.37 K/uL (0.00-0.02); Immature Granulocytes % (auto) 4.6 %; Lymphocytes # (auto) 1.45 K/uL (1.2-3.4); Lymphocytes % (auto) 17.9 %; Mean Corpuscular Hemoglobin 26.1 pg (25-34); Mean Corpuscular Hgb Conc 32.3 g/dL (32-36); Mean Corpuscular Volume 80.7 fL (80-100); Mean Platelet Volume 9.9 fL (7.4-10.4); Monocytes # (auto) 0.87 K/uL (0.11-0.59); Monocytes % (auto) 10.8 %; Neutrophils # (auto) 5.27 K/uL (1.4-6.5); Neutrophils % (auto) 65.1 %; Nucleated RBC # (auto) 0.07 K/uL (0-0); Nucleated RBC % (auto) 0.9 %; Platelet Count 162 K/uL (130-400); RDW Coefficient of Variation 17.9 % (11.5-14.5); RDW Standard Deviation 52.2 fL (36.4-46.3); Red Blood Count 4.41 M/uL (4.7-6.1); White Blood Count 8.09 K/uL (4.8-10.8)
[2019-10-14 07:00] LABS: BUN Creatinine Ratio 34.9 (10-20); Calcium 9.1 mg/dl (8.5-10.1); Est GFR (African American) 44.1; Potassium 3.4 mmol/L (3.5-5.1)
--- NOTE | 2019-10-14 07:38 | XRay Report ---
XR chest 1V portable CLINICAL HISTORY: Pneumothorax. Chest tube. COMPARISON STUDY: October 13, 2019 FINDINGS: A pigtail left pleural drainage catheter is again visualized. There is a small left basilar pneumothorax and left apical pneumothorax with pleural separation of 16 mm. There is decreased left pleural effusion with improving aeration of the left lung with persistent left basilar atelectasis/co nsolidation. There is mild interstitial thickening involving the right lung.[ IMPRESSION: 1. The left pigtail pleural drainage catheter remains in place 2. Improving aeration of the left lung 3. Persistent left-sided pneumothorax ACT 112: Negative or not required by law. Electronically signed by: Enrique Rm M.D. 10/14/2019 7:37 AM
[2019-10-14] MEDS: FLUTICASONE/VILANTEROL 200/25MCG 14 PUFFS/INHALER INH SCH (07:43)
[2019-10-14] MEDS: INSULIN ASPART 100 UNITS/ML 3 ML PEN SC SCH ×4 (07:45→22:13)
[2019-10-14] MEDS: INSULIN GLARGINE SOLOSTAR 100 UNITS/ML 3 ML PEN SC SCH ×2 (08:21→22:13)
[2019-10-14] MEDS ORDERED: POTASSIUM CHLORIDE 20 MEQ TABCR PO ONE (09:00)
--- NOTE | 2019-10-14 11:07 | Pulmonology Progress Note ---
Date of Service October 14, 2019 Assessment & Plan (1) Hypoxia: Impression: 74-year-old male presenting with massive left-sided pleural effusion and breast mass. Findings are highly concerning for metastatic breast cancer. History of prostate and bladder cancer as well but felt to be less likely. Primary lung also less likely. He is status post 14 [place] pigtail drain placement. Pleural fluid cytology shows adenocarcinoma, primary source pending immunohistochemical analysis Recommendations: 1. Pleural effusion: Malignant. Continue tube until drainage is less than 200 mL's. Likely we can discontinue the drain in the next 24 to 48 hours and potentially discharge the patient home. I would be happy to see him back in clinic in a week with repeat chest x-ray to see if the fluid re-accumulates necessitating a potential indwelling pleural catheter placement. 2. Small pneumothorax on the lung apex. This is likely pneumo ex vacuo. Patient does not require decortication and would expect some reaccumulation of pleural fluid once the catheter is removed. Repeat chest x-ray in a.m. 3. Patient will require medical oncology follow-up. Apparently this is to be done as an outpatient. Would not recommend radiation oncology consultation unless he has specific pain related to his osseous metastases Discussed extensively with patient at bedside. Questions answered to the best my ability (2) Pleural effusion, left: (3) Abnormal CT scan of lung: Admission and Anticipated Discharge Date Admission Date: October 12, 2019 Subjective Patient seen and examined. He is up to a chair. He is off oxygen. He reports that he is doing well. No significant pain or palpitations. He is tolerating a diet. Review of Systems Review of Systems: Please refer to admission H&P. No additions or deletions Physical Exam Constitutional: WD/WN, vitals as above Respiratory: normal respiratory effort Cardiovascular: Rate/Rhythm: regular rate Heart Sounds: normal S1 and nor mal S2 Extremities: + edema Gastrointestinal (Abdomen): normal bowel sounds, soft, nontender, no hepatosplenomegaly Musculoskeletal: Extremities: extremities normal to inspection Skin: no rashes, warm and dry Lymphatic: no cervical lymphadenopathy Results & Data Results & Data ([facility]) Vital Signs (Past 12 Hours) Vital Signs Temp Pulse Pulse Resp BP Pulse Ox 10/14/19 10:00 5 L 10/14/19 08:00 79 10/14/19 07:16 36.7 C 77 18 110/72 99 10/14/19 03:37 36.7 C 77 18 126/80 95 10/13/19 23:53 36.8 C 81 18 120/72 98 Laboratory Results 10/14/19 06:12 10/14/19 06:12 Pending however discussed with pathologist and appears to be consistent with an adenocarcinoma, origin pending immunohistochemical analysis Diagnostic Findings Chest x-ray today revealed better expansion of the left lung with some patchy infiltrates. There is a pneumo ex vacuo at the left lung apex as well as the lower lobe. The tube appears to be in good position. PG Care Time/CCT Total # of Minutes Spent Total Time Spent with Patient: Total time spent is greater than 50% in coordination of care (as documented) at patient's floor/unit and/or counseling patient: Coding Level of Care Code 98726 Subseq Hosp Care Lvl 3 Diagnoses Hypoxia R09.02 Pleural effusion, left J90 Abnormal CT scan of lung R91.8
[2019-10-14] MEDS: ROSUVASTATIN CALCIUM 20 MG TAB PO SCH (11:46)
[2019-10-14] MEDS ORDERED: LORazepam 0.5 MG TAB PO ONE (14:41)
--- NOTE | 2019-10-14 16:18 | Hospitalist Progress Note ---
Date of Service October 14, 2019 Assessment & Plan (1) Acute respiratory failure with hypoxia: Patient is a 74 yr male with H/O Insulin-dependent DM II, HTN, HLD, hypothyroidism, H/O Prostate cancer, H/O Bladder CA and other problems presents with worsening shortness of breath times several weeks. Acute respiratory failure with hypoxia Secondary to malignant pleural effusion, Pneumothorax S/P thoracentesis with chest tube placement Continue supplemental oxygen as needed Appreciate pulmonology input Needs 2 step prior to discharge Needs follow up with Pulmonology upon discharge (2) Pleural effusion, left: Malignant Pleural Effusion Likely secondary to metastasis from Breast CA --CT chest:A 5.3 cm left breast mass with associated skin thickening and subcutaneous infiltration of the breast suspicious for lymphangitic involvement. Left axillary lymphadenopathy consistent with metastatic disease. Large left pleural effusion occupying the entire left hemithorax resulting in compressive atelectasis of the left lung, moderate flattening of the heart, and right mediastinal shift. There is mild left pleural thickening/enhancement. Therefore, this likely represents pleural metastatic disease with a malignant pleural effusion. Scattered metastatic disease within the visualized osseous structures including a destructive lesion at T10 resulting in a mild pathologic compression fracture. Healing left lateral ninth rib fracture. This is also likely pathologic. Multiple right-sided pulmonary nodules consistent with metastatic disease. --S/P thoracentesis --Continue oxygen support as needed --Appreciate pulmonology input --Plan to discontinue chest tube once drainage less than 200 mL --Will need repeat chest x-ray as outpatient in 1 week upon discharge Left Breast Mass: -Metastatic disease--suspicious for lymphangitic involvement. Left axillary lymphadenopathy. Pleural metastatic disease. Scattered metastatic disease with destructive lesion at T10. Healing left lateral ninth rib fracture, likely pathologic. Multiple right sided pulmonary nodules. -H/O prostate, bladder cancer --CT Chest as above --CT ABD:No evidence of bowel obstruction. No evidence of free air. No acute inflammatory changes within the abdomen and pelvis. Bilateral fat-containing inguinal hernias. . Probable skeletal metastasis. No evidence of intra-abdominal metastatic disease. Partially visualized large left breast mass. Large left pleural effusion, possibly malignant with indwelling left-sided chest tube. Left lower lobe compressive atelectasis. Trace right pleural effusion with right basilar atelectatic change. Tiny right lung pulmonary nodules -Needs core biopsy of left axillary lymph node, left breast mass as outpatient -Breast cancer center coordinator informed (Ananya Marker: [phone]) -PSA:1.2 -Cytology of Pleural Fluid: Malignant cells present, consistent with metastatic adenocarcinoma, breast primary. Estrogen receptor positive. Progesterone receptor positive. HER 2/NUE overexpression negative -Prior Hospitalist discussed with [facility] Oncology Dr. Garay -Needs follow up with Oncology upon discharge (3) RAUL (acute kidney injury): Acute kidney injury Likely secondary to medications Losartan, HCTZ, metformin, Advil held Cr:2.8>2.2>1.7 Appreciate Nephrology Input Received IV fluids Bladder scan PRN Monitor renal function Avoid nephrotoxic agents as able (4) Large mass of breast: Management as above Hypokalemia Replete electrolytes as needed (5) Pathologic compression fracture of thoracic vertebra: T10 pathologic compression fracture Left 9th Rib Fracture Denies Pain Orthopedics Consulted (6) Diabetes mellitus, type II: Last A1c 7.2 09/14/2019 Hold metformin, Januvia and glyburide Lantus/NovoLog per protocol (7) Hypertension: Blood pressure Variable Hold HCTZ and losartan due to RAUL Hold amlodipine till BP improves Monitor (8) Hyperlipidemia: continue statin (9) Asthma: No signs of acute exacerbation Continue Symbicort Albuterol PRN (10) History of bladder cancer: Follows with Dr. Torres Last cystoscopy 06/2019 (11) History of prostate cancer: Follows Dr. Torres PSA normal (12) DVT prophylaxis: Heparin SQ CODE STATUS: Full code Disposition: Expected to be discharged home when medically stable Admission and Anticipated Discharge Date Admission Date: October 12, 2019 Subjective Patient is seen and examined at bedside Dyspnea improved per patient Left upper extremity swelling better States having mild discomfort at the site of chest tube Denies any nausea, vomiting, abdominal pain Chest x-ray showed improved left lung aeration, persistent left pneumothorax No family at bedside Offers no other complaints Review of Systems Review of Systems: All systems reviewed & are unremarkable except as noted in HPI & below Physical Exam Physical Exam: Physical Exam: Vitals signs as noted above General Appearance:Moderately built and nourished, no apparent distress Head: normocephalic, Atraumatic Eyes: normal inspection, EOMI Neck: supple, Trachea midline Respiratory/Chest: Left decreased breath sounds, CTA, No accessory muscle use, +chest tube Cardiovascular: S1, S2, No murmur Abdomen/GI:Soft, Non tender, Bowel sounds present Extremities/Musculoskelatal:normal inspection, Left UE swelling Neurologic/Psych:AAOX3, grossly no focal neurological deficits Skin: normal color, warm Results & Data Results & Data ([place]) Vital Signs (Past 12 Hours) Vital Signs Temp Pulse Pulse Resp BP Pulse Ox 10/14/19 15:36 36.5 C 87 18 126/70 90 10/14/19 11:29 36.5 C 87 16 94/67 L 90 10/14/19 10:00 5 L 10/14/19 08:00 79 10/14/19 07:16 36.7 C 77 18 110/72 99 Laboratory Results Short CBC 10/14/19 Range/Units 06:12 WBC 8.09 (4.8-10.8) K/uL Hgb 11.5 L (14.0-18.0) g/dL Hct 35.6 L (42-52) % Plt Count 162 (130-400) K/uL BMP 10/14/19 06:12 Sodium 139 Potassium 3.4 L Chloride 107 Carbon Dioxide 24 BUN 60 H Creatinine 1.73 H D Glucose 102 H Calcium 9.1
[2019-10-14] MEDS: CALCIUM CARBONATE 500 MG CHEWABLE TAB PO PRN (17:00)
--- NOTE | 2019-10-14 18:48 | Nephrology Progress Note ---
Date of Service October 14, 2019 Assessment & Plan (1) RAUL (acute kidney injury): Renal function had been worsening from his baseline already in late August when he presented with creatinine 1.4 up from 1.0 on prior tests most recently February 2019. On admission with fluid overload from malignant pleural effusion he had presenting creatinine 2.8; now down to 1.7 today. He was taking losartan and metformin, hydrochlorothiazide all as an outpatient by prescription as well as large amounts of Advil. No indication for acute dialysis. basic chemistries generally acceptable and for volume overload from the effusion being treated with left pigtail catheter and already over 3.5 L negative. RAUL is more than likely medication related both from prescription meds and NSAIDs in the setting of worsening effusions. However malignancy can also cause multiple glomerulopathies (as can nsaids) and will eval for these. 1/2 g mproteinuria in contaminated but bland specimen so little concern at this time for glomerular process -bmp q am -bladder scan prn -No NSAIDs -Continue to hold metformin, losartan, hydrochlorothiazide -K already repleted today by Dr Reid (2) Pleural effusion, left: per pulmonary; pigtail drain placed 10/11 -- still w/ large bloody output; fluid studies c/w metastatic BRCA as predicted (3) Large mass of breast: Left 5.3 cm mass associated with left axillary asked and matted adenopathy and extensive left upper extremity lymphedema: For possible ultrasound-guided biopsy of mass; onc and rad onc c/s pending -Defer to primary service careful monitoring / prophylaxis for PE for which he is at heightened risk Admission and Anticipated Discharge Date Admission Date: October 12, 2019 Subjective seen on rounds at 1600; pt states pigtail drain output markedly slowed today. no edema, no voiding concerns, no n/v Review of Systems Review of Systems: All systems reviewed & are unremarkable except as noted in HPI & below Physical Exam Constitutional: well developed and well nourished; no acute distress Eyes: EOM intact bilaterally ENMT: Ears: no external ear abnormality Nose: no external nose abnormality Mouth: + dry oral mucous membranes Neck: no nuchal rigidity Respiratory: normal respiratory effort and symmetric chest movement; no respiratory distress, no labored breathing and not tachypneic Auscultation: + breath sounds absent (L base) and + diminished lung sounds; + lungs not clear to auscultation Cardiovascular: RRR, no murmur, no edema Gastrointestinal (Abdomen): Inspection/Auscultation: normal bowel sounds Percussion/Palpation: abdomen soft; abdomen nontender Musculoskeletal: Extremities: strength 5/5 throughout Skin: no rashes, warm and dry Neurologic: atkinson, fluent speech, no tremor Psychiatric: A+Ox3, euthymic affect Results & Data ([facility]) Vital Signs (Past 12 Hours) Vital Signs Temp Pulse Pulse Resp BP Pulse Ox 10/14/19 16:23 91 H 10/14/19 15:36 36.5 C 87 18 126/70 90 10/14/19 11:29 36.5 C 87 16 94/67 L 90 10/14/19 10:00 5 L 10/14/19 08:00 79 10/14/19 07:16 36.7 C 77 18 110/72 99 Laboratory Results 10/14/19 06:12 10/14/19 06:12
[2019-10-14] MEDS ORDERED: MELATONIN 3 MG TAB PO PRN (21:42)
[2019-10-14] MEDS: FINASTERIDE 5 MG TAB PO SCH (22:11)
[2019-10-14] MEDS: ESCITALOPRAM OXALATE 20 MG TAB PO SCH (22:12)
[2019-10-15] MEDS: LEVOTHYROXINE SODIUM 88 MCG TABLET PO SCH (06:12)
[2019-10-15] MEDS: HEPARIN SOD 5,000 UNIT/0.5 ML VIAL SQ SCH ×3 (06:12→21:10)
--- NOTE | 2019-10-15 07:57 | XRay Report ---
XR chest 1V portable HISTORY: Pneumothorax, Chest Tube COMPARISON: Chest 10/14/2019. FINDINGS: No change in position of the left pigtail pleural drainage catheter which is seen within th e base of the left hemithorax. The left pneumothorax appears of slightly increased in size in the hea rt remains mildly enlarged. Left lung airspace opacities and diffuse interstitial thickening persists . IMPRESSION: No change in position of the left pigtail pleural drainage catheter with slight increase in size of t he small left pneumothorax. ACT 112: Negative or not required by law. Electronically signed by: Brian Muir M.D. 10/15/2019 7:55 AM
[2019-10-15] MEDS: INSULIN GLARGINE SOLOSTAR 100 UNITS/ML 3 ML PEN SC SCH ×2 (08:08→21:09)
[2019-10-15] MEDS: FLUTICASONE/VILANTEROL 200/25MCG 14 PUFFS/INHALER INH SCH (08:08)
[2019-10-15] MEDS: INSULIN ASPART 100 UNITS/ML 3 ML PEN SC SCH ×4 (08:08→21:11)
[2019-10-15 08:16] LABS: BUN Creatinine Ratio 37.7 (10-20); Calcium 9.1 mg/dl (8.5-10.1); Creatinine Clr Calc Pharmacy 56.4 ml/min; Est GFR (African American) 56.5; Est GFR (Non-African American) 48.7; Magnesium 2.2 mg/dl (1.8-2.4); Potassium 3.6 mmol/L (3.5-5.1)
--- NOTE | 2019-10-15 08:54 | Procedure Note ---
Procedure Note Date of Service October 15, 2019 Removal of 8 Khmer skater pigtail catheter Proceduralist: Tawanda Anesthesia: None Indication: Pneumothorax vacuo stable. Drainage decreasing, need to assess for potential Pleurx catheter placement. Patient was placed in the left up lateral decubitus position. The dressing was taken down. The previously placed retention suture had pulled free from the skin. The site appeared clean dry and intact. The pigtail retention suture was cut. The catheter was removed while the patient was exhaling. An occlusive dressing using Tegaderm, gauze, and Vaseline impregnated gauze was applied. Patient tolerated the procedure well. We will repeat chest x-ray this afternoon. Coding CPT Codes Pulmonary/Thoracic - Pulmonary and Thoracic: 87834 Remove lung catheter ([id number]) [facility] [place] Procedure Codes (Charges) Pulmonary/Thoracic Procedure 1: Pulmonary and Thoracic: 31320 Remove lung catheter
--- NOTE | 2019-10-15 09:01 | Pulmonology Progress Note ---
Date of Service October 15, 2019 Assessment & Plan (1) Hypoxia: Impression: 74-year-old male presenting metastatic breast cancer causing malignant pleural effusion. He is status post 14 Swedish pigtail catheter placement and has improved significantly Recommendations: 1. Pleural effusion: Malignant. Output is decreased. At this point time we will pull the pigtail catheter and repeat his chest x-ray and follow clinically. It is possible that the pleural effusion may accumulate and the patient may be better served by an indwelling tunneled pleural drain which she can go home with and drain through home health care. To place that drained safely, will need to check x-ray later this afternoon to ensure that he is doing well. Timing of the catheter will be dictated based on how quickly the fluid re-accumulates. Patient may be able to be discharged home day or so if it appears that he will not require additional procedures 2. Small pneumothorax on the lung apex. This is pneumo ex vacuo. Patient does not require decortication and would expect some reaccumulation of pleural fluid once the catheter is removed. Repeat chest x-ray in a.m. 3. Patient will require medical oncology follow-up. Apparently this is to be done as an outpatient. Would not recommend radiation oncology consultation unless he has specific pain related to his osseous metastases Patient needs to increase activity and ambulate. Recommend assessment for need for supplemental oxygen prior to discharge. (2) Pleural effusion, left: (3) Abnormal CT scan of lung: Admission and Anticipated Discharge Date Admission Date: October 12, 2019 Subjective Patient seen and examined. He is feeling well overall. No chest pain. No respiratory issues. He is awake alert and sitting up in bed. He tolerated breakfast reasonably well. Pleural fluid was positive for metastatic adenocarcinoma and stained consistent with a breast primary. Review of Systems Review of Systems: Unchanged from prior Physical Exam Constitutional: WD/WN, vitals as above Respiratory: normal respiratory effort Cardiovascular: Rate/Rhythm: regular rate Heart Sounds: normal S1 and normal S2 Extremities: + edema Chest (Breasts): Additional Comments: No air leak identified on the chest tube. Gastrointestinal (Abdomen): normal bowel sounds, soft, nontender, no hepatosplenomegaly Musculoskeletal: Extremities: extremities normal to inspection Skin: no rashes, warm and dry Lymphatic: no cervical lymphadenopathy Results & Data Results & Data ([facility]) Vital Signs (Past 12 Hours) Vital Signs Temp Pulse Resp BP Pulse Ox 10/15/19 07:18 36.6 C 81 21 121/62 95 10/15/19 05:13 36.5 C 83 20 128/73 91 10/14/19 23:30 93 10/14/19 23:24 36.6 C 93 H 20 123/69 87 L Laboratory Results 10/14/19 06:12 10/15/19 07:31 Chest tube output showed 1 to 200 cc output over the last 2 consecutive 12-hour shifts Diagnostic Findings Chest x-ray today was independently reviewed. The tube appears to be in good position. There are somewhat more prominent airspace opacities throughout the left lung compared to prior. Pneumo ex vacuo remains in place. PG Care Time/CCT Total # of Minutes Spent Total Time Spent with Patient: Total time spent is greater than 50% in coordination of care (as documented) at patient's floor/unit and/or counseling patient: Coding Level of Care Code 67100 Subseq Hosp Care Lvl 3 Diagnoses Hypoxia R09.02 Pleural effusion, left J90 Abnormal CT scan of lung R91.8
[2019-10-15] MEDS: ROSUVASTATIN CALCIUM 20 MG TAB PO SCH (11:40)
--- NOTE | 2019-10-15 15:09 | XRay Report ---
XR chest 1V portable CLINICAL HISTORY: Pneumothorax. COMPARISON STUDY: 10/15/2019 FINDINGS: The left-sided chest tube has been removed. There is a left apical pneumothorax with pleura l separation of 2 cm. There are persistent left lung airspace opacities, most pronounced the left mercy g base. There is diffuse right lung interstitial thickening.[ IMPRESSION: 1. Interval removal of the left-sided chest tube 2. 2 cm left apical pneumothorax 3. Persistent left lung airspace opacities in right lung interstitial thickening ACT 112: Negative or not required by law. Electronically signed by: Enrique Rm M.D. 10/15/2019 3:08 PM
[2019-10-15] MEDS: CALCIUM CARBONATE 500 MG CHEWABLE TAB PO PRN (15:26)
--- NOTE | 2019-10-15 17:32 | Nephrology Progress Note ---
Date of Service October 15, 2019 Assessment & Plan (1) RAUL (acute kidney injury): ATN, improving. Renal function had been worsening from his baseline already in late August when he presented with creatinine 1.4 up from 1.0 on prior tests most recently February 2019. On admission with fluid overload from malignant pleural effusion he had presenting creatinine 2.8; now down to 1.7 today. He was taking losartan and metformin, hydrochlorothiazide all as an outpatient by prescription as well as large amounts of Advil. No indication for acute dialysis. basic chemistries generally acceptable and volume overload from the effusion was treated with left pigtail catheter (removed 10/14). RAUL is more than likely medication related both from prescription meds and NSAIDs in the setting of worsening effusions. However malignancy can also cause multiple glomerulopathies (as can nsaids) and will eval for these. 1/2 gm proteinuria in contaminated but bland specimen so little concern at this time for glomerular process -bmp q am -bladder scan prn -No NSAIDs -consider alternative DM medication at discharge >> would not resume metformin at least not at d/c -BP has been controlled without losartan and HCTZ >> cont to hold -consider low dose lasix in next 1-2 days -he will need OP follow up in CKD clinic, details to follow (2) Pleural effusion, left: per pulmonary; pigtail drain placed 10/11 -- still w/ large bloody output; fluid studies c/w metastatic BRCA as predicted (3) Large mass of breast: Left 5.3 cm mass associated with left axillary asked and matted adenopathy and extensive left upper extremity lymphedema: For possible ultrasound-guided biopsy of mass; onc and rad onc c/s pending -Defer to primary service careful monitoring / prophylaxis for PE for which he is at heightened risk Admission and Anticipated Discharge Date Admission Date: October 12, 2019 Subjective seen and evaluated on rounds at 1045 this AM. feeling a bit improved; pleural drain removed. staging work up plans underway. no voiding sx, no worsening sob, no n/v, no palpitations or edema Review of Systems Review of Systems: All systems reviewed & are unremarkable except as noted in HPI & below Physical Exam Constitutional: well developed and well nourished; no acute distress sitting in bed on 02nc Eyes: EOM intact bilaterally ENMT: Ears: no external ear abnormality Nose: no external nose abnormality Mouth: + dry oral mucous membranes Neck: no nuchal rigidity Respiratory: normal respiratory effort, able to speak in complete sentences and symmetric chest movement; no respiratory distress, no labored breathing and not tachypneic Auscultation: + breath sounds absent (L base), + diminished lung sounds and + crackles (bibasilar, more on R); + lungs not clear to auscultation Cardiovascular: RRR, no murmur, no edema Gastrointestinal (Abdomen): Inspection/Auscultation: normal bowel sounds Percussion/Palpation: abdomen soft; abdomen nontender Musculoskeletal: Extremities: strength 5/5 throughout Skin: no rashes, warm and dry Neurologic: atkinson, fluent speech, no tremor Psychiatric: A+Ox3, euthymic affect Results & Data ([facility]) Vital Signs (Past 12 Hours) Vital Signs Temp Pulse Pulse Resp BP BP Pulse Ox 10/15/19 15:37 36.5 C 91 H 18 112/62 92 10/15/19 11:35 36.8 C 89 17 101/61 88 L 10/15/19 08:00 85 10/15/19 07:18 36.6 C 81 21 121/62 95 Laboratory Results 10/14/19 06:12 10/15/19 07:31
--- NOTE | 2019-10-15 18:12 | Hospitalist Progress Note ---
Date of Service October 15, 2019 Assessment & Plan (1) Acute respiratory failure with hypoxia: Patient is a 74 yr male with H/O Insulin-dependent DM II, HTN, HLD, hypothyroidism, H/O Prostate cancer, H/O Bladder CA and other problems presents with worsening shortness of breath times several weeks. Acute respiratory failure with hypoxia Secondary to malignant pleural effusion, Pneumothorax S/P thoracentesis with chest tube placement Continue supplemental oxygen as needed Appreciate pulmonology input Needs 2 step prior to discharge Needs follow up with Pulmonology upon discharge (2) Pleural effusion, left: Malignant Pleural Effusion Secondary to metastasis from Breast CA --CT chest:A 5.3 cm left breast mass with associated skin thickening and subcutaneous infiltration of the breast suspicious for lymphangitic involvement. Left axillary lymphadenopathy consistent with metastatic disease. Large left pleural effusion occupying the entire left hemithorax resulting in compressive atelectasis of the left lung, moderate flattening of the heart, and right mediastinal shift. There is mild left pleural thickening/enhancement. Therefore, this likely represents pleural metastatic disease with a malignant pleural effusion. Scattered metastatic disease within the visualized osseous structures including a destructive lesion at T10 resulting in a mild pathologic compression fracture. Healing left lateral ninth rib fracture. This is also likely pathologic. Multiple right-sided pulmonary nodules consistent with metastatic disease. --S/P thoracentesis --Continue oxygen support as needed --Appreciate pulmonology input --Pleural fluid output decreased --Removal of pigtail catheter today --Persistent small pneumothorax on chest x-ray today --Does not require decortication as per pulmonology --Continue supplemental oxygen as needed --Will need 2 step prior to discharge Left Breast Mass: -Metastatic disease--suspicious for lymphangitic involvement. Left axillary lymphadenopathy. Pleural metastatic disease. Scattered metastatic disease with destructive lesion at T10. Healing left lateral ninth rib fracture, likely pathologic. Multiple right sided pulmonary nodules. -H/O prostate, bladder cancer --CT Chest as above --CT ABD:No evidence of bowel obstruction. No evidence of free air. No acute inflammatory changes within the abdomen and pelvis. Bilateral fat-containing inguinal hernias. . Probable skeletal metastasis. No evidence of intra-abdominal metastatic disease. Partially visualized large left breast mass. Large left pleural effusion, possibly malignant with indwelling left-sided chest tube. Left lower lobe compressive atelectasis. Trace right pleural effusion with right basilar atelectatic change. Tiny right lung pulmonary nodules -Needs core biopsy of left axillary lymph node, left breast mass as outpatient -Breast cancer center coordinator informed (Ananya Marker: [phone]) -PSA:1.2 -Cytology of Pleural Fluid: Malignant cells present, consistent with metastatic adenocarcinoma, breast primary. Estrogen receptor positive. Progesterone receptor positive. HER 2/NUE overexpression negative -Prior Hospitalist discussed with [facility] Oncology Dr. Garay -Needs follow up with Oncology upon discharge (3) RAUL (acute kidney injury): Acute kidney injury Likely secondary to medications Losartan, HCTZ, metformin, Advil held Cr:2.8>2.2>1.7>>1.4 Appreciate Nephrology Input Received IV fluids Bladder scan PRN Monitor renal function Avoid nephrotoxic agents as able (4) Large mass of breast: Management as above Hypokalemia Replete electrolytes as needed (5) Pathologic compression fracture of thoracic vertebra: T10 pathologic compression fracture Left 9th Rib Fracture Denies Pain Orthopedics Consulted (6) Diabetes mellitus, type II: Last A1c 7.2 09/14/2019 Hold metformin, Januvia and glyburide Lantus/NovoLog per protocol (7) Hypertension: Blood pressure Variable Hold HCTZ and losartan due to RAUL Hold amlodipine till BP improves Monitor (8) Hyperlipidemia: continue statin (9) Asthma: No signs of acute exacerbation Continue Symbicort Albuterol PRN (10) History of bladder cancer: Follows with Dr. Torres Last cystoscopy 06/2019 (11) History of prostate cancer: Follows Dr. Torres PSA normal (12) DVT prophylaxis: Heparin SQ CODE STATUS: Full code Disposition: Expected to be discharged home when medically stable PT/OT eval and 2 step prior to discharge Admission and Anticipated Discharge Date Admission Date: October 12, 2019 Subjective Patient is seen and examined at bedside Pleural fluid output decreased Pigtail catheter removed this morning Requiring supplemental oxygen to maintain saturations No new complaints today Minimal pain at the site of catheter Persistent pneumothorax on chest x-ray No significant shortness of breath Denies chest pain, dizziness, nausea, abdominal pain Review of Systems Review of Systems: All systems reviewed & are unremarkable except as noted in HPI & below Physical Exam Physical Exam: Physical Exam: Vitals signs as noted above General Appearance:Moderately built and nourished, no apparent distress Head: normocephalic, Atraumatic Eyes: normal inspection, EOMI Neck: supple, Trachea midline Respiratory/Chest: Left decreased breath sounds, CTA, No accessory muscle use Cardiovascular: S1, S2, No murmur Abdomen/GI:Soft, Non tender, Bowel sounds present Extremities/Musculoskelatal:normal inspection, Left UE swelling Neurologic/Psych:AAOX3, grossly no focal neurological deficits Skin: normal color, warm Results & Data Results & Data ([facility]) Vital Signs (Past 12 Hours) Vital Signs Temp Pulse Pulse Resp BP BP Pulse Ox 10/15/19 15:37 36.5 C 91 H 18 112/62 92 10/15/19 11:35 36.8 C 89 17 101/61 88 L 10/15/19 08:00 85 10/15/19 07:18 36.6 C 81 21 121/62 95 Laboratory Results [facility] 10/15/19 07:31 Sodium 139 Potassium 3.6 Chloride 107 Carbon Dioxide 25 BUN 53 H Creatinine 1.41 H D Glucose 113 H Calcium 9.1
[2019-10-15] MEDS: ESCITALOPRAM OXALATE 20 MG TAB PO SCH (21:10)
[2019-10-15] MEDS: FINASTERIDE 5 MG TAB PO SCH (21:11)
[2019-10-16] MEDS: HEPARIN SOD 5,000 UNIT/0.5 ML VIAL SQ SCH (05:58)
[2019-10-16] MEDS: LEVOTHYROXINE SODIUM 88 MCG TABLET PO SCH (05:58)
[2019-10-16 07:24] LABS: Hematocrit (blood only) 34.7 % (42-52); Hemoglobin 10.7 g/dL (14.0-18.0); Mean Corpuscular Hemoglobin 25.4 pg (25-34); Mean Corpuscular Hgb Conc 30.8 g/dL (32-36); Mean Corpuscular Volume 82.4 fL (80-100); Mean Platelet Volume 10.5 fL (7.4-10.4); Nucleated RBC # (auto) 0.07 K/uL (0-0); Platelet Count 146 K/uL (130-400); RDW Coefficient of Variation 18.1 % (11.5-14.5); RDW Standard Deviation 54.5 fL (36.4-46.3); Red Blood Count 4.21 M/uL (4.7-6.1); White Blood Count 6.95 K/uL (4.8-10.8)
--- NOTE | 2019-10-16 07:47 | XRay Report ---
XR chest 1V portable HISTORY: Follow-up pneumothorax. COMPARISON: Chest 10/15/2019. FINDINGS: Small left apical pneumothorax is not significantly changed. There is also a basilar compon ent to the pneumothorax, unchanged. Left basilar density/effusion and left lung interstitial thickeni ng persists. Mild interstitial thickening within the right lung is also unchanged. This could represe nt mild edema. The heart is mildly enlarged. IMPRESSION: No change compared to the prior study. Left-sided pneumothorax and left lung airspace opacities persi st. ACT 112: Negative or not required by law. Electronically signed by: Brian Muir M.D. 10/16/2019 7:46 AM
[2019-10-16 07:50] LABS: BUN Creatinine Ratio 36.3 (10-20); Calcium 8.7 mg/dl (8.5-10.1); Creatinine Clr Calc Pharmacy 63.7 ml/min; Est GFR (African American) 65.3; Est GFR (Non-African American) 56.4; Potassium 3.7 mmol/L (3.5-5.1)
[2019-10-16] MEDS: CALCIUM CARBONATE 500 MG CHEWABLE TAB PO PRN (08:42)
[2019-10-16] MEDS: FLUTICASONE/VILANTEROL 200/25MCG 14 PUFFS/INHALER INH SCH (08:43)
[2019-10-16] MEDS: INSULIN GLARGINE SOLOSTAR 100 UNITS/ML 3 ML PEN SC SCH (08:43)
[2019-10-16] MEDS: INSULIN ASPART 100 UNITS/ML 3 ML PEN SC SCH ×2 (08:44→12:06)
--- NOTE | 2019-10-16 09:59 | Pulmonology Progress Note ---
Date of Service October 16, 2019 Assessment & Plan (1) Hypoxia: Impression: 74-year-old male presenting metastatic breast cancer causing malignant pleural effusion. He is status post 14 [place] pigtail catheter placement and has improved significantly. Pigtail catheter removed 10/14/ Recommendations: 1. Pleural effusion: Malignant. Patient is done well status post drainage. Chest x-ray Does not demonstrate rapid reaccumulation of the pleural fluid. 2. Small pneumothorax This is pneumo ex vacuo. Patient does not require decortication and would expect some reaccumulation of pleural fluid to fill the space. No other intervention needed 3. Patient will require medical oncology follow-up. Apparently this is to be done as an outpatient. Would not recommend radiation oncology consultation unless he has specific pain related to his osseous metastases Recommend assessing the patient for need for supplemental oxygen prior to discharge. Pulmonary will sign off at this time. If the fluid reaccumulated, cannot consider an outpatient Pleurx catheter placement (2) Pleural effusion, left: (3) Abnormal CT scan of lung: Admission and Anticipated Discharge Date Admission Date: October 12, 2019 Subjective Seen and examined. EMR reviewed. Patient reports he is doing well clinically. No significant pain. His breathing is about the same. No fevers chills or night sweats. He is apparently been up and ambulating somewhat. Review of Systems Review of Systems: All systems reviewed & are unremarkable except as noted in HPI & below Physical Exam Constitutional: WD/WN, vitals as above Respiratory: normal respiratory effort Cardiovascular: Rate/Rhythm: regular rate Heart Sounds: normal S1 and normal S2 Extremities: + edema Gastrointestinal (Abdomen): normal bowel sounds, soft, nontender, no hepatosplenomegaly Musculoskeletal: Extremities: extremities normal to inspection Skin: no rashes, warm and dry Lymphatic: no cervical lymphadenopathy Results & Data Results & Data ([facility]) Vital Signs (Past 12 Hours) Vital Signs Temp Pulse Resp BP Pulse Ox 10/16/19 08:01 36.8 C 89 18 118/59 L 96 10/16/19 03:12 36.6 C 71 20 110/67 94 10/15/19 23:47 36.6 C 77 20 104/54 L 91 Laboratory Results 10/16/19 06:50 10/16/19 06:50 Diagnostic Findings Chest x-ray today status post ex vacuo with some hazy opacities. Left hemidiaphragm remains elevated. Small reaccumulation of pleural fluid PG Care Time/CCT Total # of Minutes Spent Total Time Spent with Patient: Total time spent is greater than 50% in coordination of care (as documented) at patient's floor/unit and/or counseling patient: Coding Level of Care Code 90932 Subseq Hosp Care Lvl 2 Diagnoses Hypoxia R09.02 Pleural effusion, left J90 Abnormal CT scan of lung R91.8
--- NOTE | 2019-10-16 11:05 | Nephrology Progress Note ---
Date of Service October 16, 2019 Assessment & Plan (1) RAUL (acute kidney injury): ATN, improving/nearly resolved. Renal function had been worsening from his baseline already in late August when he presented with creatinine 1.4 up from 1.0 on prior tests most recently February 2019. On admission with fluid overload from malignant pleural effusion he had presenting creatinine 2.8; now down to 1.3 today with K 3.7. He was taking losartan and metformin, hydrochlorothiazide all as an outpatient by prescription as well as large amounts of Advil. No indication for acute dialysis. basic chemistries generally acceptable and volume overload from the effusion was treated with left pigtail catheter (removed 10/14). RAUL is more than likely medication related both from prescription meds and NSAIDs in the setting of worsening effusions. However malignancy can also cause multiple glomerulopathies (as can nsaids): 1/2 gm proteinuria in contaminated but bland specimen so little concern at this time for glomerular process -gave IV lasix 10 mg today x 1 and po K 20 mEq x 1 -No NSAIDs -consider alternative DM medication at discharge >> would not resume metformin at least not at d/c -BP has been controlled without losartan and HCTZ >> cont to hold both at d/c -recommend at d/c lasix 20 mg po daily and K 20 mEq po daily with BMP on 10/18 then weekly x 3 -needs OP follow up in CKD clinic in 2-3 weeks with Micaela or CÉSAR Above d/c recs were discussed with Dr Reid I did also suggest pt be on 50 oz FR daily (2) Pleural effusion, left: per pulmonary; pigtail drain placed 10/11 -- still w/ large bloody output; fluid studies c/w metastatic BRCA as predicted -lasix as above (3) Large mass of breast: Left 5.3 cm mass associated with left axillary asked and matted adenopathy and extensive left upper extremity lymphedema: For possible ultrasound-guided biopsy of mass; for OP onc follow up -Defer to primary service careful monitoring / prophylaxis for PE for which he is at heightened risk Admission and Anticipated Discharge Date Admission Date: October 12, 2019 Subjective seen on rounds at 1330; up in chair for d/c today. on 02nc; no sob, notes he's drinking more; no pain, no voiding complaints no gi concerns Review of Systems Review of Systems: All systems reviewed & are unremarkable except as noted in HPI & below Physical Exam Constitutional: well developed and well nourished; no acute distress up in chair on 02nc Eyes: EOM intact bilaterally ENMT: Ears: no external ear abnormality Nose: no external nose abnormality Mouth: + dry oral mucous membranes Neck: no nuchal rigidity Respiratory: normal respiratory effort, able to speak in complete sentences and symmetric chest movement; no respiratory distress, no labored breathing and not tachypneic Auscultation: + breath sounds absent (L base), + diminished lung sounds and + crackles (bibasilar, more on R); + lungs not clear to auscultation Cardiovascular: RRR, no murmur, no edema Gastrointestinal (Abdomen): Inspection/Auscultation: normal bowel sounds Percussion/Palpation: abdomen soft; abdomen nontender Musculoskeletal: Extremities: strength 5/5 throughout Skin: no rashes, warm and dry Neurologic: atkinson, fluent speech, no tremor Psychiatric: A+Ox3, euthymic affect Results & Data ([facility]) Vital Signs (Past 12 Hours) Vital Signs Temp Pulse Resp BP Pulse Ox 10/16/19 08:01 36.8 C 89 18 118/59 L 96 10/16/19 03:12 36.6 C 71 20 110/67 94 10/15/19 23:47 36.6 C 77 20 104/54 L 91 Laboratory Results 10/16/19 06:50 10/16/19 06:50
[2019-10-16] MEDS ORDERED: FUROSEMIDE 10 MG in SYRINGE 0 ML IV SCH (11:15)
[2019-10-16] MEDS ORDERED: POTASSIUM CHLORIDE 20 MEQ TABCR PO SCH (11:15)
[2019-10-16] MEDS: ROSUVASTATIN CALCIUM 20 MG TAB PO SCH (12:08)
--- NOTE | 2019-10-16 13:52 | Hospitalist Progress Note ---
Date of Service October 16, 2019 Assessment & Plan (1) Acute respiratory failure with hypoxia: Patient is a 74 yr male with H/O Insulin-dependent DM II, HTN, HLD, hypothyroidism, H/O Prostate cancer, H/O Bladder CA and other problems presents with worsening shortness of breath times several weeks. Acute respiratory failure with hypoxia Secondary to malignant pleural effusion, Pneumothorax S/P thoracentesis with chest tube placement Continue supplemental oxygen as needed Appreciate pulmonology input No rapid reaccumulation of pleural fluid on repeat chest x-ray. 2 step: Needs 2 L at rest, 4 L with activity. Needs follow up with Pulmonology upon discharge with repeat X ray (2) Pleural effusion, left: Malignant Pleural Effusion Secondary to metastasis from Breast CA --CT chest:A 5.3 cm left breast mass with associated skin thickening and subcutaneous infiltration of the breast suspicious for lymphangitic involvement. Left axillary lymphadenopathy consistent with metastatic disease. Large left pleural effusion occupying the entire left hemithorax resulting in compressive atelectasis of the left lung, moderate flattening of the heart, and right mediastinal shift. There is mild left pleural thickening/enhancement. Therefore, this likely represents pleural metastatic disease with a malignant pleural effusion. Scattered metastatic disease within the visualized osseous structures including a destructive lesion at T10 resulting in a mild pathologic compression fracture. Healing left lateral ninth rib fracture. This is also likely pathologic. Multiple right-sided pulmonary nodules consistent with metastatic disease. --S/P thoracentesis --Continue oxygen support as needed --Appreciate pulmonology input --Pleural fluid output decreased --Removal of pigtail catheter 10/15/19 --Persistent small pneumothorax on chest x-ray today --Does not require decortication as per pulmonology --Continue supplemental oxygen --2 step: Needs 2 L at rest, 4 L with activity. --Plan to start on Lasix 20 mg daily with potassium 20 mEq daily as recommended by nephrology. Left Breast Mass: -Metastatic disease--suspicious for lymphangitic involvement. Left axillary lymphadenopathy. Pleural metastatic disease. Scattered metastatic disease with destructive lesion at T10. Healing left lateral ninth rib fracture, likely pathologic. Multiple right sided pulmonary nodules. -H/O prostate, bladder cancer --CT Chest as above --CT ABD:No evidence of bowel obstruction. No evidence of free air. No acute inflammatory changes within the abdomen and pelvis. Bilateral fat-containing inguinal hernias. . Probable skeletal metastasis. No evidence of intra-abdominal metastatic disease. Partially visualized large left breast mass. Large left pleural effusion, possibly malignant with indwelling left-sided chest tube. Left lower lobe compressive atelectasis. Trace right pleural effusion with right basilar atelectatic change. Tiny right lung pulmonary nodules -Needs core biopsy of left axillary lymph node, left breast mass as outpatient -Breast cancer center coordinator informed (Ananya Marker: [phone]) -PSA:1.2 -Cytology of Pleural Fluid: Malignant cells present, consistent with metastatic adenocarcinoma, breast primary. Estrogen receptor positive. Progesterone receptor positive. HER 2/NUE overexpression negative -Needs follow up with Oncology upon discharge (3) RAUL (acute kidney injury): Acute kidney injury Likely secondary to medications Losartan, HCTZ, metformin, Advil held Cr:2.8>2.2>1.7>>1.4>>1.25 Appreciate Nephrology Input Received IV fluids Bladder scan PRN Monitor renal function Avoid nephrotoxic agents as able Plan to discontinue HCTZ, losartan upon discharge as recommended by nephrology Needs follow-up with nephrology upon discharge with repeat labs. (4) Large mass of breast: Management as above Hypokalemia Replete electrolytes as needed (5) Pathologic compression fracture of thoracic vertebra: T10 pathologic compression fracture Left 9th Rib Fracture Denies Pain Orthopedics Consulted (6) Diabetes mellitus, type II: Last A1c 7.2 09/14/2019 Was on metformin, Januvia, glimepiride and Lantus prior to hospitalization Will discontinue Metformin upon discharge due to renal insufficiency Will decrease Januvia to 50 mg daily to adjust for renal function upon discharge Lantus/NovoLog per protocol (7) Hypertension: Blood pressure relatively low Discontinue HCTZ and losartan upon discharge as well Hold amlodipine till BP improves Monitor (8) Hyperlipidemia: continue statin (9) Asthma: No signs of acute exacerbation Continue Symbicort Albuterol PRN (10) History of bladder cancer: Follows with Dr. Torres Last cystoscopy 06/2019 (11) History of prostate cancer: Follows Dr. Torres PSA normal (12) DVT prophylaxis: Heparin SQ CODE STATUS: Full code Disposition: Expected to be discharged home when medically stable Admission and Anticipated Discharge Date Admission Date: October 12, 2019 Subjective Patient is seen and examined at bedside No new complaints Qualifies for home oxygen on 2 step Denies pain at the site of catheter Denies chest pain, dizziness, nausea, abdominal pain Discussed with Nephrology today Review of Systems Review of Systems: All systems reviewed & are unremarkable except as noted in HPI & below Physical Exam Physical Exam: Physical Exam: Vitals signs as noted above General Appearance:Moderately built and nourished, no apparent distress Head: normocephalic, Atraumatic Eyes: normal inspection, EOMI Neck: supple, Trachea midline Respiratory/Chest: Left decreased breath sounds, CTA, No accessory muscle use Cardiovascular: S1, S2, No murmur Abdomen/GI:Soft, Non tender, Bowel sounds present Extremities/Musculoskelatal:normal inspection, Left UE swelling Neurologic/Psych:AAOX3, grossly no focal neurological deficits Skin: normal color, warm Results & Data Results & Data ([facility]) Vital Signs (Past 12 Hours) Vital Signs Temp Pulse Pulse Pulse Pulse Pulse Pulse 10/16/19 11:48 36.6 C 10/16/19 11:30 88 100 H 104 H 100 H 89 88 10/16/19 11:28 10/16/19 08:01 36.8 C 10/16/19 03:12 36.6 C Pulse Resp Resp Resp Resp Resp Resp 10/16/19 11:48 94 H 18 10/16/19 11:30 20 20 20 20 20 10/16/19 11:28 10/16/19 08:01 89 18 10/16/19 03:12 71 20 Resp BP Pulse Ox Pulse Ox Pulse Ox Pulse Ox Pulse Ox 10/16/19 11:48 109/66 91 10/16/19 11:30 20 92 86 L 90 85 L 10/16/19 11:28 10/16/19 08:01 118/59 L 96 10/16/19 03:12 110/67 94 Pulse Ox Pulse Ox Pulse Ox Pulse Ox 10/16/19 11:48 10/16/19 11:30 90 87 L 10/16/19 11:28 94 94 10/16/19 08:01 10/16/19 03:12 Laboratory Results Short CBC 10/16/19 Range/Units 06:50 WBC 6.95 (4.8-10.8) K/uL Hgb 10.7 L (14.0-18.0) g/dL Hct 34.7 L (42-52) % Plt Count 146 (130-400) K/uL BMP 10/16/19 06:50 Sodium 142 Potassium 3.7 Chloride 108 H Carbon Dioxide 28 BUN 45 H Creatinine 1.25 Glucose 95 Calcium 8.7
--- NOTE | 2019-10-16 14:41 | Discharge Summary ---
Date of Service October 16, 2019 Admission HPI Per Admitting Provider This is a 74-year-old male who has significant past medical history of insulin- dependent T2DM, HTN, HLD, hypothyroidism, history of prostate cancer, history of bladder CA who presents to ED secondary to worsening shortness of breath times several weeks. Patient states he was seen and evaluated by PCP on 09/29 and diagnosed with asthma exacerbation. He was placed on prednisone and inhaler titrated from Flovent to Symbicort. He noticed no significant improvement with breathing and therefore presented to ED today. He states other than his breathing he otherwise, "feels well." He denies any recent fever, chills, sweats, lightheadedness, dizziness, syncope, chest pain, shortness of breath, cough, hemoptysis, nausea, vomiting, abdominal pain, change in bowel or urinary habits. He has lost approximately 10 pounds over the last 2 to 3 months. He also elicits a left breast mass that he has had for several years. 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 He does have a prior history of prostate and bladder cancer which he is follows Dr. Torres. He had a cystoscopy and PSA done within the last several months which were both unremarkable. He denies any family history of breast cancer. Overall appetite is been diminished over the last several weeks. He has been using his Symbicort and albuterol daily without improvement in shortness of breath. In ED patient was found to be hypoxic requiring 3 L of O2 via NC. He also was tachycardic. Lab work notable for H&H 11.6 and 30.0, platelet 236, BUN 64, creatinine 2.81, glucose 123, elevated mag and fossa 2.6 and 5.3, globulin elevated 4.4. Chest x-ray revealed large left pleural effusion with complete opacification of the left hemithorax and a subtle shift to the right. Chest CT: No large 5.3 cm left breast mass, Left axillary lymphadenopathy consistent with metastatic disease, large left pleural effusion occupying the entire left hemithorax with compressive atelectasis and mild right modesty no shift. Mild left pleural thickening likely representing pleural metastatic disease, scattered metastatic disease in the osseous structures including destruction at T10 with mild pathologic compression fracture, multiple right- sided pulmonary nodules consistent with metastatic disease. In ED he received 10 mg IV dexamethasone, guaifenesin, albuterol 500 mL IVF. Admission Exam Per Admitting Provider Physical Exam Physical Exam: Constitutional: WD/WN, M, vitals as above, NAD, sitting up in bed, pleasant, conversing easily Head: Normocephalic, Atraumatic Eyes: PERRL, conjunctivae normal, anicteric sclerae ENMT: external ear and nose normal, oropharynx normal dry mucous membranes Neck: trachea midline, no thyromegaly normal visual inspection Respiratory: On O2 via NC, increased respiratory effort, absent breath sounds on left, right lung clear to auscultation with mild expiratory wheeze, no rales rhonchi noted, no accessory muscle use Cardiovascular: Tachycardic rate, regular rhythm,no murmur, left upper extremity lymphedema noted, no warmth or pain to palpation, no lower extremity edema Vessels: no JVD or carotid bruit Chest: Large left breast mass, lateral, fixed, multiple fixed axillary lymph nodes palpated Abdomen: Protuberant abdomen, normal bowel sounds, soft, nontender, no hepatosplenomegaly Musculoskeletal: no cyanosis or clubbing, extremities motor strength 5/5 Skin: no rashes, warm and dry normal turgor Neurologic: PERRL, EOMI, accommodation nl, no face palsy, no dysarthria CN's II-XI intact bilaterally and moves all extremities Psychiatric: A+Ox3, euthymic affect Lymphatic: + L axillary fixed, firm, non painful adenopathy palpated, no cervical or axillary lymphadenopathy : deferred Principal Diagnosis Acute respiratory failure with hypoxia Malignant pleural effusion Left Pneumothorax Metastatic adenocarcinoma of Breast Acute kidney injury Hypokalemia Pathologic compression fracture of thoracic vertebra T10 Discharge Data Allergies Allergy/AdvReac Type Severity Reaction Status Date / Time Sulfa (Sulfonamide Allergy Unknown unknown Verified 10/12/19 13:08 Antibiotics) told by allergists after testing -sulfa allergy Consultations 10/12/19 14:37 ED Decision to Admit Stat 10/12/19 15:34 Consult Nephrology Routine Consult Pulmonology Routine 10/12/19 18:58 Consult Case Management - Discharge Planning Routine Consult Orthopedic Surgery Routine Procedures Performed --CT chest:A 5.3 cm left breast mass with associated skin thickening and subcutaneous infiltration of the breast suspicious for lymphangitic involvement. Left axillary lymphadenopathy consistent with metastatic disease. Large left pleural effusion occupying the entire left hemithorax resulting in compressive atelectasis of the left lung, moderate flattening of the heart, and right mediastinal shift. There is mild left pleural thickening/enhancement. Therefore, this likely represents pleural metastatic disease with a malignant pleural effusion. Scattered metastatic disease within the visualized osseous structures including a destructive lesion at T10 resulting in a mild pathologic compression fracture. Healing left lateral ninth rib fracture. This is also likely p athologic. Multiple right-sided pulmonary nodules consistent with metastatic disease. --CT ABD:No evidence of bowel obstruction. No evidence of free air. No acute inflammatory changes within the abdomen and pelvis. Bilateral fat-containing inguinal hernias. . Probable skeletal metastasis. No evidence of intra-abdominal metastatic disease. Partially visualized large left breast mass. Large left pleural effusion, possibly malignant with indwelling left-sided chest tube. Left lower lobe compressive atelectasis. Trace right pleural effusion with right basilar atelectatic change. Tiny right lung pulmonary nodules Ordered Studies 10/12/19 13:48 CT chest wo con Stat 10/12/19 15:32 CT abd pelvis wo con Stat US venous doppler UE LT Urgent 10/12/19 15:48 US point of care ultrasound Urgent Hospital Course (1) Acute respiratory failure with hypoxia: Patient is a 74 yr male with H/O Insulin-dependent DM II, HTN, HLD, hypothyroidism, H/O Prostate cancer, H/O Bladder CA and other problems presents with worsening shortness of breath times several weeks. Acute respiratory failure with hypoxia Secondary to malignant pleural effusion, Pneumothorax S/P thoracentesis with chest tube placement Continue supplemental oxygen as needed Appreciate pulmonology input No rapid reaccumulation of pleural fluid on repeat chest x-ray. 2 step: Needs 2 L at rest, 4 L with activity. Needs follow up with Pulmonology upon discharge with repeat X ray (2) Pleural effusion, left: Malignant Pleural Effusion Secondary to metastasis from Breast CA --CT chest:A 5.3 cm left breast mass with associated skin thickening and subcutaneous infiltration of the breast suspicious for lymphangitic involvement. Left axillary lymphadenopathy consistent with metastatic disease. Large left pleural effusion occupying the entire left hemithorax resulting in compressive atelectasis of the left lung, moderate flattening of the heart, and right mediastinal shift. There is mild left pleural thickening/enhancement. Therefore, this likely represents pleural metastatic disease with a malignant pleural effusion. Scattered metastatic disease within the visualized osseous structures including a destructive lesion at T10 resulting in a mild pathologic compression fracture. Healing left lateral ninth rib fracture. This is also likely pathologic. Multiple right-sided pulmonary nodules consistent with metastatic disease. --S/P thoracentesis --Continue oxygen support as needed --Appreciate pulmonology input --Pleural fluid output decreased --Removal of pigtail catheter 10/15/19 --Persistent small pneumothorax on chest x-ray today --Does not require decortication as per pulmonology --Continue supplemental oxygen --2 step: Needs 2 L at rest, 4 L with activity. --Plan to start on Lasix 20 mg daily with potassium 20 mEq daily as recommended by nephrology. Left Breast Mass: -Metastatic disease--suspicious for lymphangitic involvement. Left axillary lymphadenopathy. Pleural metastatic disease. Scattered metastatic disease with destructive lesion at T10. Healing left lateral ninth rib fracture, likely pathologic. Multiple right sided pulmonary nodules. -H/O prostate, bladder cancer --CT Chest as above --CT ABD:No evidence of bowel obstruction. No evidence of free air. No acute inflammatory changes within the abdomen and pelvis. Bilateral fat-containing inguinal hernias. . Probable skeletal metastasis. No evidence of intra-abdominal metastatic disease. Partially visualized large left breast mass. Large left pleural effusion, possibly malignant with indwelling left-sided chest tube. Left lower lobe compressive atelectasis. Trace right pleural effusion with right basilar atelectatic change. Tiny right lung pulmonary nodules -Needs core biopsy of left axillary lymph node, left breast mass as outpatient -Breast cancer center coordinator informed (Ananya Marker: [phone]) -PSA:1.2 -Cytology of Pleural Fluid: Malignant cells present, consistent with metastatic adenocarcinoma, breast primary. Estrogen receptor positive. Progesterone receptor positive. HER 2/NUE overexpression negative -Needs follow up with Oncology upon discharge (3) RAUL (acute kidney injury): Acute kidney injury Likely secondary to medications Losartan, HCTZ, metformin, Advil held Cr:2.8>2.2>1.7>>1.4>>1.25 Appreciate Nephrology Input Received IV fluids Bladder scan PRN Monitor renal function Avoid nephrotoxic agents as able Plan to discontinue HCTZ, losartan upon discharge as recommended by nephrology Needs follow-up with nephrology upon discharge with repeat labs. (4) Large mass of breast: Management as above Hypokalemia Replete electrolytes as needed (5) Pathologic compression fracture of thoracic vertebra: T10 pathologic compression fracture Left 9th Rib Fracture Denies Pain Orthopedics Consulted (6) Diabetes mellitus, type II: Last A1c 7.2 09/14/2019 Was on metformin, Januvia, glimepiride and Lantus prior to hospitalization Will discontinue Metformin upon discharge due to renal insufficiency Will decrease Januvia to 50 mg daily to adjust for renal function upon discharge Lantus/NovoLog per protocol (7) Hypertension: Blood pressure relatively low Discontinue HCTZ and losartan upon discharge as well Hold amlodipine till BP improves Monitor (8) Hyperlipidemia: continue statin (9) Asthma: No signs of acute exacerbation Continue Symbicort Albuterol PRN (10) History of bladder cancer: Follows with Dr. Torres Last cystoscopy 06/2019 (11) History of prostate cancer: Follows Dr. Torres PSA normal (12) DVT prophylaxis: Heparin SQ CODE STATUS: Full code Disposition: Expected to be discharged home when medically stable Total Time Total Time Spent Total Time Spent (In Minutes): 45 minutes Total Time Includes: Examination of the Patient, Discharge Planning, Medication Reconciliation, Communication With Other Providers and Other Discharge Plan Discharge Items Patient Disposition: Home - Home Health Services Reason For Visit: LEFT PLEURAL EFFUSION HYPOXIA L BREAST MASS Discharge Diagnosis: Acute respiratory failure with hypoxia Malignant pleural effusion Left Pneumothorax Metastatic adenocarcinoma of Breast Acute kidney injury Hypokalemia Pathologic compression fracture of thoracic vertebra T10 Activity: Per Instructions section Exercise/Sports: Wait until after follow-up appointment Non-emergency contact: Primary Care Provider, Machine Baster, Oncologist and Key Entry Operator Call non-emergency contact if: you have any medication questions, your symptoms worsen, your pain is not controlled, your pain is worsening, your pain is unusual for you, your pain is concerning for you and you have a fever Follow-up/Referrals: Damon Christianson DO [Physician] - 11/03/19 2:40 pm (Dr. Damon Christianson, Hematology and Oncology [address] [place] [address]) Paul Neff MD [Physician] - 10/22/19 9:00 am (Dr. Paul Neff, Pulmonary Medicine [address] [address]) Paty Hinojosa MD, PhD [Physician] - 11/19/19 2:30 pm (Date & Time 11/19/2019 2:30 PM Provider Paty Hinojosa MD Department Nephrology, [facility] ) Raymond Saldivar MD [Physician] - 10/21/19 11:00 am (Date & Time 10/21/2019 11:00 AM Provider Raymond Saldivar III, MD Department Family Practice [facility] ) Diet: Carb Consistent or DM2 and Heart Healthy Ambulatory Orders: Basic Metabolic Panel (Routine) Timeframe: [id number] Location: Determined by Patient Ordered By: Salazar Reid XR chest 2V PA/lateral (Routine) Timeframe: 1 Week Location: Determined by Patient Ordered By: Salazar Reid Addtl Attending Provider Instructions: [facility] [address], [place] [address] Ananya Marker- will call you on Saturday to schedule a breast biopsy. Follow-up with your primary care physician Dr. Saldivar as scheduled on October 21, 2019 at 11 AM. --- Discussed with your physician for further adjustment of your diabetic medications as advised. Follow-up with your exterminator termite Dr. Neff as scheduled on October 22, 2019 at 9 AM with repeat chest x-ray as recommended. Follow-up with your oncologist Dr. Christianson on November 03, 2019 at 2:40 PM as scheduled for further management of breast cancer Follow-up with your custodian manager Dr. Ellison in 2 to 3 weeks with repeat blood test as recommended. Currently you have scheduled on November 18 at 2:30 PM. Office will call for an earlier appointment. --Use oxygen 2 L with rest and 4 L with activity as recommended. --Get Blood Test (Basic Metabolic Panel) on 10/19/19 and then weeekly for 3 weeks and follow up with your Machine Baster with Results. Medication changes: New Medications: --Furosemide 20 mg daily --Potassium chloride 20 mEq daily Discontinued Medications: --You are discontinued on hydrochlorothiazide, metformin and losartan as recommended by your custodian manager Dose medication change: Your Januvia is decreased to 50 mg daily. Seek immediate medical attention if your symptoms reoccur or worsen Pending Studies at Discharge: No Stand-Alone Forms: My [facility], Smoking Cessation Medications and DC Order Prescriptions: New potassium chloride [Klor-Con M20] 20 mEq Tablet,Er Particles/Crystals 20 meq PO QAM Qty: 30 RF: 0 furosemide [Lasix] 20 mg tablet 20 mg PO DAILY Qty: 30 RF: 0 Continued Lantus U-100 Insulin 100 unit/mL Solution 15 unit SUBCUT QAM RF: 0 albuterol sulfate 90 mcg/actuation Hfa Aerosol Inhaler 2 puff INHALATION QID PRN (Reason: Wheezing) RF: 0 fluticasone propionate [Flonase Allergy Relief] 50 mcg/actuation Rogers,Suspension 2 spray INTRANASAL DAILY PRN (Reason: Allergy Symptoms) RF: 0 amlodipine 2.5 mg tablet 2.5 mg PO HS RF: 0 glimepiride 2 mg tablet 2 mg PO QDD RF: 0 glimepiride 1 mg tablet 1 mg PO QDD RF: 0 levothyroxine 88 mcg tablet 88 mcg PO QAM RF: 0 escitalopram oxalate 20 mg tablet 20 mg PO HS RF: 0 rosuvastatin 20 mg tablet 20 mg PO QDL RF: 0 budesonide-formoterol [Symbicort] 160-4.5 mcg/actuation HFA aerosol inhaler 2 puff INHALATION BID RF: 0 finasteride 5 mg tablet 5 mg PO HS RF: 0 Changed Januvia 100 mg Tablet 50 mg PO QDL Qty: 0 RF: 0 Discontinued metformin 1,000 mg Tablet 1,000 mg PO BIDM RF: 0 hydrochlorothiazide 25 mg tablet 25 mg PO QAM RF: 0 losartan 100 mg tablet 100 mg PO QAM RF: 0 Discharge Orders: Discharge Order (Routine); Ordered 10/16/19 Ordered By: Salazar Reid Admission Data Admit Date/Time: 10/12/19 14:41 Attending Provider: Salazar Reid Admit Provider: Kaitlin Pitt Primary Care Provider: Tamiko Gaming Other Providers: Paul Neff ; Paty Hinojosa ; Bhargav Garcias ; Maria Esther Andrews ; Karen Rapp ; Mary Coates ; Kaitlin Pitt ; Paul Gould ; [facility] Other Interventions: Discharge Summary Assessment (RN) Last Done: 10/16/19 17:22
== END 2019-10-16 16:55 | disposition home health service (06) | DRG 180 ==
LOC: ED 11:26 → 2E 14:41 → SUATTDRO 14:41 → 2E 18:26

== ENCOUNTER 2019-11-16 16:42 | Inpatient (IN) ==
--- NOTE | 2019-11-16 17:45 | Emergency Department Note ---
Impression & Plan Hypoxia, Pleural effusion, left, Acute respiratory failure with hypoxia ED Provider Note NAME: CARTER ALFRED AGE: 74 SEX: M : 1945 ARRIVES VIA: Ambulance INFORMANT: Patient ED PROVIDER(S): Bernabe Penn DO CHIEF COMPLAINT: weak and short of breath HPI: Patient is a 74-year-old male with a past medical history of prostate cancer, breast cancer which is now metastatic with recurrent pleural effusion who presents to the ER referred in by hematology/oncology. They are unable to get blood work on him as an outpatient. He has been more short of breath for the past several days and has felt more fatigued and weak. He has had 2 thoracentesis with the most recent being 1 week ago. Denies any belly pain. No nausea vomiting or diarrhea. No dysuria urgency or frequency. ROS: See above HPI for pertinent positives & negatives. A total of 10 systems reviewed and were otherwise negative. PAST MEDICAL HISTORY:See Below PAST SURGICAL HISTORY:See Below FAMILY HISTORY:See Below SOCIAL HISTORY:See Below HOME MEDICATIONS:See Below ALLERGIES:See Below VITALS:See Below PHYSICAL EXAMINATION: GENERAL: Lying in bed on the left side, disheveled, chronically ill-appearing, on oxygen mask EYE EXAM: normal conjunctiva. OROPHARYNX: no exudate, no erythema, lips, buccal mucosa, and tongue normal and mucous membranes are moist NECK: supple, no nuchal rigidity, no adenopathy, non-tender LUNGS: Diminished on the left. Normal chest wall mechanics HEART: no murmurs, S1 normal and S2 normal ABDOMEN: abdomen soft, non-tender, normo-active bowel sounds, no masses, no rebound or guarding. BACK: Back is symmetrical on inspection and there is no deformity, no midline tenderness, no CVA tenderness. SKIN: no rashes and no bruising UPPER EXTREMITIES: upper extremities are grossly normal. LOWER EXTREMITIES: No pitting edema. NEURO EXAM: Normal sensorium, cranial nerves II-XII grossly intact, normal speech, no gross weakness of arms, no gross weakness of legs. MEDICAL DECISION MAKING: Patient is a 74-year-old male who presents the ER for shortness of breath which is been worsening over the past several days associated with weakness. He has a history of breast cancer which is metastatic. He has had 2 thoracentesis before in the past. He said increased swelling in his legs and left upper extremity. Last week he had a liter off of his lungs. He presents in a found to be hypoxic 85% on room air. Diminished breath sounds on exam. Otherwise no respiratory distress. Placed on oxygen mask at 6 L. IV was established blood work was obtained. Labs show a mild leukopenia 4.6 thousand. Mild anemia at 8.7 down from a baseline of 10. INR was unremarkable. BMP with LFTs bilirubin and troponin was negative. UA was negative. Patient was updated bedside. Chest x- ray supports pleural effusion with a small stable pneumothorax which has had before in the past. There are also questionable infiltrates seen as well in imaging. Patient was given IV antibiotics. Was discussed with the hospitalist for further evaluation and admission. Duplex of lower extremities were pending prior to admission. Triage Nursing notes reviewed. Prior medical records reviewed Vital Signs: reviewed and remarkable for hypoxic Differential diagnosis: Differential diagnoses includes but is not limited to pneumonia, bronchitis, COPD/Asthma exacerbation, pneumothorax, pulmonary embolism, congestive heart failure, acute coronary syndrome ER treatment provided: See below Diagnostics interpreted by me: ECG: Sinus rhythm rate of 94 Poor baseline First-degree AV block Right bundle branch block PVC Normal QTC Cardiac Monitoring: An order was placed for continuous cardiac monitoring. The monitor shows a rate of 98 with sinus rhythm. Laboratory studies: As stated above and show below. Imaging studies: Chest x-ray shows pleural effusions, left apical pneumothorax unchanged from previous as well as questionable consolidations Consultation(s): Darya with Dr. Bartholomew for admission ED COURSE: Procedures: none Critical Care: I have personally spent 32 minutes of critical care time in the direct management of this patient. This includes bedside care, interpretation of diagnostic studies, and testing, discussion with consultants, patient, and family members, and other required patient management activities. This 32 minutes is in excess of all separately billable procedures. Past Med/Surg History Medical History (Updated 11/16/19 @ 20:30 by Bernabe Penn DO) Anxiety Bifascicular block RBBB + LAFB. HAD ONE TIME CONSULTATION WITH DR. MORALES IN 2014. NORMAL ECHO 2011. 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 Beliefs That Will Affect Care: None marital status: Current Living Situation: Spouse Current Living Situation Comment: lives w/ Feels Safe at Home: Yes Assistive Devices: Oxygen - Continuous and Walker Allergies Allergies Allergy/AdvReac Type Severity Reaction Status Date / Time Sulfa (Sulfonamide Allergy Unknown unknown Verified 11/16/19 18:01 Antibiotics) told by allergists after testing -sulfa allergy Home Meds Home Medications Medication Instructions Recorded Confirmed Lantus U-100 Insulin 10 unit SUBCUT QAM 05/23/18 11/16/19 albuterol sulfate 2 puff INHALATION QID PRN 05/23/18 11/16/19 fluticasone propionate [Flonase 2 spray INTRANASAL DAILY PRN 05/23/18 11/16/19 Allergy Relief] amlodipine 2.5 mg PO HS 10/12/19 11/16/19 budesonide-formoterol [Symbicort] 2 puff INHALATION BID 10/12/19 11/16/19 escitalopram oxalate [Lexapro] 20 mg PO HS 10/12/19 11/16/19 finasteride [Proscar] 5 mg PO HS 10/12/19 11/16/19 levothyroxine 88 mcg PO QAM 10/12/19 11/16/19 rosuvastatin [Crestor] 20 mg PO QDL 10/12/19 11/16/19 fexofenadine 180 mg tablet 180 mg PO DAILY PRN tab 10/19/19 11/16/19 Previous Rx's Medication Instructions Recorded Januvia 50 mg PO QDL #0 tab 10/16/19 furosemide [Lasix] 20 mg PO DAILY #30 tab 10/16/19 potassium chloride [Klor-Con M20] 20 meq PO QAM #30 tab 10/16/19 Portable Oxygen #1 ea 10/30/19 Results & Data (ED) Vital Signs Vital Signs - 24 hr 11/16/19 16:53 11/16/19 17:01 11/16/19 17:18 Pulse Rate 107 H 96 H 89 Pulse Rate from SpO2 Sensor 97 H 90 Respiratory Rate 24 26 H 27 H Respiratory Effort / Characteristics Non-Labored Spontaneous Respiratory Depth Normal Respiratory Pattern Regular Blood Pressure 142/80 H 132/64 Blood Pressure Mean 100 80 Pulse Oximetry 87 L 85 L 84 L Oxygen Delivery Method Room Air Nasal Cannula Nasal Cannula Oxygen Flow Rate 4 4 4 Sepsis Recent Fever Within 48 Hours No Sepsis New/Unexplained Change in Mental Status No Sepsis Action Taken by Nursing No Action Required 11/16/19 17:20 11/16/19 17:38 Pulse Rate 90 Pulse Rate from SpO2 Sensor 94 H Respiratory Rate 19 Respiratory Effort / Characteristics Respiratory Depth Respiratory Pattern Blood Pressure Blood Pressure Mean Pulse Oximetry 85 L Oxygen Delivery Method Nasal Cannula Oxymask Oxygen Flow Rate 6 6 Sepsis Recent Fever Within 48 Hours Sepsis New/Unexplained Change in Mental Status Sepsis Action Taken by Nursing Laboratory Data Result diagrams: 11/16/19 18:40 11/16/19 18:40 Lab Results 11/16/19 11/16/19 11/16/19 Range/Units 17:20 18:40 18:40 WBC 4.64 L (4.8-10.8) K/uL RBC 3.42 L (4.7-6.1) M/uL Hgb 8.7 L (14.0-18.0) g/dL Hct 28.5 L (42-52) % MCV 83.3 (80-100) fL MCH 25.4 (25-34) pg MCHC 30.5 L (32-36) g/dL RDW Std Deviation 59.1 H (36.4-46.3) fL RDW Coeff of Amy 20.0 H (11.5-14.5) % Plt Count 74 L (130-400) K/uL MPV 9.5 (7.4-10.4) fL Absolute Nucleated RBC 0.69 H (0-0) K/uL Nucleated RBC % (auto) 14.8 % Neutrophils % (Manual) 52.6 % Lymphocytes % (Manual) 27.7 % Monocytes % (Manual) 12.5 % Eosinophils % (Manual) 1.8 % Basophils % (Manual) 0.9 % Metamyelocytes % (Man) 4.5 % Neutrophils # (Manual) 2.44 (1.4-6.5) K/uL Total Absolute Neuts 2.44 (1.4-6.5) K/uL Lymphocytes # (Manual) 1.29 (1.2-3.4) K/uL Total Abs Lymphocytes 1.29 (1.2-3.4) K/uL Monocytes # (Manual) 0.58 (0.11-0.59) K/uL Eosinophils # (Manual) 0.08 (0-0.5) K/uL Basophils # (Manual) 0.04 (0-0.2) K/uL Metamyelocytes # (Man) 0.21 H (0-0) K/uL Platelet Estimate Decreased L (Normal) Anisocytosis Present PT (9.0-12.0) Seconds INR (0.9-1.1) APTT (21.0-31.0) Seconds PTT Ratio Sodium 140 (136-145) mmol/L Potassium 4.3 (3.5-5.1) mmol/L Chloride 102 (98-107) mmol/L Carbon Dioxide 31 (21-32) mmol/L Anion Gap 8.0 (3-11) BUN 24 H (7-18) mg/dl Creatinine 1.06 (0.6-1.4) mg/dl Est Cr Clr Drug Dosing 79.0 ml/min Est GFR ( Amer) 79.7 Est GFR (Non-Af Amer) 68.8 BUN/Creatinine Ratio 22.8 H (10-20) Glucose 93 (70-99) mg/dl Calcium 9.4 (8.5-10.1) mg/dl Total Bilirubin 0.5 (0.2-1) mg/dl AST 78 H (15-37) U/L ALT 35 (12-78) U/L Alkaline Phosphatase 168 H (45-117) U/L Troponin I < 0.015 (0-0.045) ng/ml NT-Pro-B Natriuret Pep 694 (0-900) pg/ml Total Protein 6.2 L (6.4-8.2) gm/dl Albumin 2.4 L (3.4-5.0) gm/dl Globulin 3.8 (2.5-4.0) gm/dl Albumin/Globulin Ratio 0.6 L (0.9-2) Urine Color Yellow Urine Appearance Clear (Clear) Urine pH 5.0 (4.5-7.5) Ur Specific [place] 1.017 (1.000-1.030) Urine Protein Trace H (Negative) Urine Glucose (UA) Negative (Negative) Urine Ketones Negative (Negative) Urine Blood Negative (Negative) Urine Nitrite Negative (Negative) Urine Bilirubin Negative (Negative) Urine Urobilinogen Negative (Negative) Ur Leukocyte Esterase Negative (Negative) Urine WBC (Auto) 1-5 (0-5) /hpf Urine RBC (Auto) 0-4 (0-4) /hpf U Hyaline Cast (Auto) 1-5 (0-5) /lpf U Epithel Cells (Auto) 0-5 (0-5) /lpf Urine Bacteria (Auto) Negative (Negative) 11/16/19 Range/Units 18:40 WBC (4.8-10.8) K/uL RBC (4.7-6.1) M/uL Hgb (14.0-18.0) g/dL Hct (42-52) % MCV (80-100) fL MCH (25-34) pg MCHC (32-36) g/dL RDW Std Deviation (36.4-46.3) fL RDW Coeff of Amy (11.5-14.5) % Plt Count (130-400) K/uL MPV (7.4-10.4) fL Absolute Nucleated RBC (0-0) K/uL Nucleated RBC % (auto) % Neutrophils % (Manual) % Lymphocytes % (Manual) % Monocytes % (Manual) % Eosinophils % (Manual) % Basophils % (Manual) % Metamyelocytes % (Man) % Neutrophils # (Manual) (1.4-6.5) K/uL Total Absolute Neuts (1.4-6.5) K/uL Lymphocytes # (Manual) (1.2-3.4) K/uL Total Abs Lymphocytes (1.2-3.4) K/uL Monocytes # (Manual) (0.11-0.59) K/uL Eosinophils # (Manual) (0-0.5) K/uL Basophils # (Manual) (0-0.2) K/uL Metamyelocytes # (Man) (0-0) K/uL Platelet Estimate (Normal) Anisocytosis PT 11.3 (9.0-12.0) Seconds INR 1.1 (0.9-1.1) APTT 26.2 (21.0-31.0) Seconds PTT Ratio 0.9 Sodium (136-145) mmol/L Potassium (3.5-5.1) mmol/L Chloride (98-107) mmol/L Carbon Dioxide (21-32) mmol/L Anion Gap (3-11) BUN (7-18) mg/dl Creatinine (0.6-1.4) mg/dl Est Cr Clr Drug Dosing ml/min Est GFR ( Amer) Est GFR (Non-Af Amer) BUN/Creatinine Ratio (10-20) Glucose (70-99) mg/dl Calcium (8.5-10.1) mg/dl Total Bilirubin (0.2-1) mg/dl AST (15-37) U/L ALT (12-78) U/L Alkaline Phosphatase (45-117) U/L Troponin I (0-0.045) ng/ml NT-Pro-B Natriuret Pep (0-900) pg/ml Total Protein (6.4-8.2) gm/dl Albumin (3.4-5.0) gm/dl Globulin (2.5-4.0) gm/dl Albumin/Globulin Ratio (0.9-2) Urine Color Urine Appearance (Clear) Urine pH (4.5-7.5) Ur Specific [place] (1.000-1.030) Urine Protein (Negative) Urine Glucose (UA) (Negative) Urine Ketones (Negative) Urine Blood (Negative) Urine Nitrite (Negative) Urine Bilirubin (Negative) Urine Urobilinogen (Negative) Ur Leukocyte Esterase (Negative) Urine WBC (Auto) (0-5) /hpf Urine RBC (Auto) (0-4) /hpf U Hyaline Cast (Auto) (0-5) /lpf U Epithel Cells (Auto) (0-5) /lpf Urine Bacteria (Auto) (Negative) Discharge Plan Visit Data Chief Complaint: Shortness of Breath/Dyspnea Stated Complaint: SOB ED Provider: Bernabe Penn Discharge Problem: Hypoxia, Pleural effusion, left, Acute respiratory failure with hypoxia Forms Stand Alone Forms: My [facility] Prescriptions Prescriptions: No Action (DME) Portable Oxygen Misc See Rx Instructions .ROUTE .MEDSUPPLY Qty: 1 RF: 0 fexofenadine [Mercedes Allergy] 180 mg tablet 180 mg PO DAILY PRN (Reason: Allergy Symptoms) RF: 0 Lantus U-100 Insulin 100 unit/mL Solution 10 unit SUBCUT QAM RF: 0 albuterol sulfate 90 mcg/actuation Hfa Aerosol Inhaler 2 puff INHALATION QID PRN (Reason: Wheezing) RF: 0 fluticasone propionate [Flonase Allergy Relief] 50 mcg/actuation [place],Suspension 2 spray INTRANASAL DAILY PRN (Reason: Allergy Symptoms) RF: 0 amlodipine 2.5 mg tablet 2.5 mg PO HS RF: 0 levothyroxine 88 mcg tablet 88 mcg PO QAM RF: 0 escitalopram oxalate [Lexapro] 20 mg tablet 20 mg PO HS RF: 0 rosuvastatin [Crestor] 20 mg tablet 20 mg PO QDL RF: 0 budesonide-formoterol [Symbicort] 160-4.5 mcg/actuation HFA aerosol inhaler 2 puff INHALATION BID RF: 0 finasteride [Proscar] 5 mg tablet 5 mg PO HS RF: 0 potassium chloride [Klor-Con M20] 20 mEq Tablet,Er Particles/Crystals 20 meq PO QAM Qty: 30 RF: 0 furosemide [Lasix] 20 mg tablet 20 mg PO DAILY Qty: 30 RF: 0 Januvia 100 mg Tablet 50 mg PO QDL Qty: 0 RF: 0
--- NOTE | 2019-11-16 18:14 | XRay Report ---
XR chest 1V portable CLINICAL HISTORY: Dyspnea COMPARISON STUDY: 11/12/2019 FINDINGS: The heart is borderline enlarged. There are diffuse bilateral interstitial opacities. There is a loculated left apical pneumothorax with pleural separation of 38 mm. There are bilateral pleura l effusions left greater than right with associated left lower lobe atelectasis/consolidation.[ IMPRESSION: 1. Persistent bilateral pleural effusions left greater than right 2. Relatively stable loculated left apical pneumothorax 3. Persistent left lower lung zone airspace opacities, atelectatic versus infectious/inflammatory 4. Diffuse interstitial thickening. While likely representing pulmonary edema, an interstitial inflam matory process or lymphangitic tumor spread could appear similar ACT 112: Negative or not required by law. Electronically signed by: Enrique Rm M.D. 11/16/2019 6:13 PM
[2019-11-16 18:39] LABS: Appearance Urine Clear (Clear); Bacteria Urine Automated Negative (Negative); Bilirubin Urine Negative (Negative); Blood Urine Negative (Negative); Color Urine Yellow; Epithelial Cell Urine Auto 0-5 /lpf (0-5); Glucose Urine UA Negative (Negative); Ketones Urine Negative (Negative); Leukocyte Esterase Urine Negative (Negative); Nitrite Urine Negative (Negative); Protein Urine Trace (Negative); RBC Urine Automated 0-4 /hpf (0-4); Specific Gravity Urine 1.017 (1.000-1.030); Urobilinogen Urine Negative (Negative)
[2019-11-16 18:50] LABS: Mean Corpuscular Hgb Conc 30.5 g/dL (32-36)
[2019-11-16 19:06] LABS: INR 1.1 (0.9-1.1); Partial Thromboplastin Ratio 0.9; Partial Thromboplastin Time 26.2 Seconds (21.0-31.0); Prothrombin Time 11.3 Seconds (9.0-12.0)
[2019-11-16 19:15] LABS: Alanine Aminotransferase 35 U/L (12-78); Albumin Level 2.4 gm/dl (3.4-5.0); Aspartate Aminotransferase 78 U/L (15-37); BUN Creatinine Ratio 22.8 (10-20); Blood Urea Nitrogen 24 mg/dl (7-18); Calcium 9.4 mg/dl (8.5-10.1); Carbon Dioxide 31 mmol/L (21-32); Chloride 102 mmol/L (98-107); Est GFR (African American) 79.7; Est GFR (Non-African American) 68.8; Glucose 93 mg/dl (70-99); Potassium 4.3 mmol/L (3.5-5.1); Sodium 140 mmol/L (136-145)
[2019-11-16 19:20] LABS: Albumin Globulin Ratio 0.6 (0.9-2); Alkaline Phosphatase 168 U/L (45-117); Bilirubin,Total 0.5 mg/dl (0.2-1); Globulin 3.8 gm/dl (2.5-4.0); NT Pro B Type Natriuretic Pept 694 pg/ml (0-900); Total Protein 6.2 gm/dl (6.4-8.2); Troponin I < 0.015 ng/ml (0-0.045)
[2019-11-16 19:22] LABS: ALC (manual) 1.29 K/uL (1.2-3.4); ANC (manual) 2.44 K/uL (1.4-6.5); Anisocytosis Present; Basophils # (manual) 0.04 K/uL (0-0.2); Basophils % (manual) 0.9 %; Eosinophils # (manual) 0.08 K/uL (0-0.5); Eosinophils % (manual) 1.8 %; Hematocrit (blood only) 28.5 % (42-52); Hemoglobin 8.7 g/dL (14.0-18.0); Lymphocytes # (manual) 1.29 K/uL (1.2-3.4); Lymphocytes % (manual) 27.7 %; Mean Corpuscular Hemoglobin 25.4 pg (25-34); Mean Corpuscular Volume 83.3 fL (80-100); Mean Platelet Volume 9.5 fL (7.4-10.4); Metamyelocytes # (manual) 0.21 K/uL (0-0); Metamyelocytes % (manual) 4.5 %; Monocytes # (manual) 0.58 K/uL (0.11-0.59); Monocytes % (manual) 12.5 %; Neutrophils # (manual) 2.44 K/uL (1.4-6.5); Neutrophils % (manual) 52.6 %; Nucleated RBC # (auto) 0.69 K/uL (0-0); Nucleated RBC % (auto) 14.8 %; Platelet Count 74 K/uL (130-400); Platelet Estimate Decreased (Normal); RDW Standard Deviation 59.1 fL (36.4-46.3); Red Blood Count 3.42 M/uL (4.7-6.1); White Blood Count 4.64 K/uL (4.8-10.8)
[2019-11-16] MEDS ORDERED: ALBUT/IPRATROP 3MG/0.5MG NEB 3 ML VIAL NEB STA (20:28)
[2019-11-16] MEDS ORDERED: LEVOFLOXACIN/D5W 750 MG/150 ML BAG IV STA (20:33)
[2019-11-16 20:38] LABS: Magnesium 2.1 mg/dl (1.8-2.4)
--- NOTE | 2019-11-16 20:39 | Ultrasound Report ---
US venous doppler LE BI CLINICAL HISTORY: Dyspnea COMPARISON STUDY: No previous studies for comparison. FINDINGS: Grayscale, color-flow, Doppler spectral waveform analysis was performed. Common femoral superficial femoral and popliteal veins appeared patent. The posterior tibial and ante rior tibial veins appeared patent. There is acute thrombus within the peroneal veins which appear dis tended. IMPRESSION: 1. Acute right lower extremity DVT with involvement of the peroneal veins. No evidence of above-the-k nee thrombus. ACT 112: Negative or not required by law. Electronically signed by: Enrique Rm M.D. 11/16/2019 8:37 PM
--- NOTE | 2019-11-16 20:59 | History & Physical Report ---
Date of Service November 16, 2019 Assessment & Plan (1) Acute respiratory failure with hypoxia: Malignant left pleural effusion, recent diagnosed breast cancer Rule out pulmonary embolism from possible heparin-induced thrombocytopenia given acute DVT findings hypertension, stable chronic left bundle branch block prostate cancer status post radiation bladder cancer status post surgery DM 2 insulin requiring, reasonable control as of recent outpatient hemoglobin A1c of 7.20 August 2019 Acute on chronic anemia, no overt source of bleed for now Hypothyroidism, euthyroid as of last month's TSH past tobacco abuse ICU monitoring Supplemental O2 CT chest PE study HIT screen (currently a send out test as per [facility] lab) Argatroban for presumptive ECHO until HIT screen results back Pulmonary consult Re: Respiratory failure, malignant pleural effusion Anemia work-up, transfuse PRBC if hemoglobin less than 7 and or for symptomatic anemia Basal insulin adjusted for n.p.o. status in anticipation of procedure for now, ISS BG goal [id number] DVT prophylaxis. IV Argatroban if pulmonology agreeable Full code Text document was generated using [employer] voice recognition software. It may contain grammatical or spelling errors. Kindly contact undersigned for clarification of any documentation item in question. History of Present Illness Cystoscopy cystoscopy cystoscopy Chief Complaint: Worsening shortness of breath Primary Care Provider: Raymond Saldivar MD History obtained from patient and records. Medical history significant for recent diagnosis of metastatic breast cancer, hypertension, hyperlipidemia, chronic left bundle branch block, prostate cancer status post radiation, bladder cancer status post surgery, DM 2 insulin requiring , hypothyroidism, chronic anemia (baseline hemoglobin 10-11 ). Last confinement last month for respiratory failure secondary to malignant pleural effusion from breast cancer. Patient underwent thoracentesis with chest tube placement. Pleurx catheter recommended for malignant left pleural effusion if with recurrence as per outpatient pulmonology note on follow-up 2 weeks ago. Outpatient blood work from 2 weeks ago showed hemoglobin of 8.7, platelets of 127. Patient denies overt bleeding, hematuria, black/bloody stools. Palliative chemotherapy followed by hormonal treatment recommended by [facility] oncologist after initial outpatient consultation last week. Patient to be referred for Port-A-Cath placement. Ultrasound-guided thoracentesis done outpatient on reaccumulated left-sided pleural effusion last week. Last few days patient noted worsening shortness of breath more so with exertion and increased fatigue. No cough symptoms, no chest pain. Feet more swollen than usual. Patient too weak to go for outpatient blood work requested by oncologist in preparation for chemotherapy. Patient directed by oncologist to ER for evaluation. 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 Allergies Allergy/AdvReac Type Severity Reaction Status Date / Time Sulfa (Sulfonamide Allergy Unknown unknown Verified 11/16/19 18:01 Antibiotics) told by allergists after testing -sulfa allergy Home Medications Home Medications Medication Instructions Recorded Confirmed Type Lantus U-100 Insulin 10 unit SUBCUT QAM 05/23/18 11/16/19 History albuterol sulfate 2 puff INHALATION QID PRN 05/23/18 11/16/19 History fluticasone propionate [Flonase 2 spray INTRANASAL DAILY PRN 05/23/18 11/16/19 History Allergy Relief] amlodipine 2.5 mg PO HS 10/12/19 11/16/19 History budesonide-formoterol [Symbicort] 2 puff INHALATION BID 10/12/19 11/16/19 History escitalopram oxalate [Lexapro] 20 mg PO HS 10/12/19 11/16/19 History finasteride [Proscar] 5 mg PO HS 10/12/19 11/16/19 History levothyroxine 88 mcg PO QAM 10/12/19 11/16/19 History rosuvastatin [Crestor] 20 mg PO QDL 10/12/19 11/16/19 History Januvia 50 mg PO QDL #0 tab 10/16/19 11/16/19 Rx furosemide [Lasix] 20 mg PO DAILY #30 tab 10/16/19 11/16/19 Rx potassium chloride [Klor-Con M20] 20 meq PO QAM #30 tab 10/16/19 11/16/19 Rx fexofenadine 180 mg tablet 180 mg PO DAILY PRN tab 10/19/19 11/16/19 History Portable Oxygen #1 ea 10/30/19 10/30/19 Rx Past Med/Surg History Medical History (Updated 11/16/19 @ 20:30 by Bernabe Penn DO) Anxiety Bifascicular block RBBB + LAFB. HAD ONE TIME CONSULTATION WITH DR. MORALES IN 2015. NORMAL ECHO 2011. 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 Required: No Beliefs That Will Affect Care: None marital status: Current Living Situation: Spouse Current Living Situation Comment: lives w/ Feels Safe at Home: Yes Assistive Devices: Oxygen - Continuous and Walker Review of Systems Review of Systems: As per HPI, all 10 systems reviewed, all other ROS negative Physical Exam Physical Exam: GENERAL: uncomfortable, respiratory distress, obese SKIN: Pallor , warm HEENT: pale palpebral conjunctivae, no ptosis, dry buccal mucosa, O2 mask in place NECK : Supple, no tenderness CHEST : Decreased breath sounds L, no tenderness HEART : RRR, no obvious murmurs ABDOMEN: Some distention, nontender EXTREMITIES : Minimal LE swelling, no LE tenderness, no other conspicuous deformities noted NEUROLOGIC : Coherent, no facial asymmetry, no other gross focality Results & Data Results & Data ([facility]) Vital Signs (Past 12 Hours) Vital Signs Pulse Resp BP Pulse Ox 11/16/19 17:20 90 19 85 L 11/16/19 17:18 89 27 H 84 L 11/16/19 17:01 96 H 26 H 132/64 85 L 11/16/19 16:53 107 H 24 142/80 H 87 L Laboratory Results Laboratory Results WBC 4.64 K/uL (4.8-10.8) L 11/16/19 18:40 RBC 3.42 M/uL (4.7-6.1) L 11/16/19 18:40 Hgb 8.7 g/dL (14.0-18.0) L 11/16/19 18:40 Hct 28.5 % (42-52) L 11/16/19 18:40 MCV 83.3 fL (80-100) 11/16/19 18:40 MCH 25.4 pg (25-34) 11/16/19 18:40 MCHC 30.5 g/dL (32-36) L 11/16/19 18:40 RDW Std Deviation 59.1 fL (36.4-46.3) H 11/16/19 18:40 RDW Coeff of Amy 20.0 % (11.5-14.5) H 11/16/19 18:40 Plt Count 74 K/uL (130-400) L 11/16/19 18:40 MPV 9.5 fL (7.4-10.4) 11/16/19 18:40 Absolute Nucleated RBC 0.69 K/uL (0-0) H 11/16/19 18:40 Nucleated RBC % (auto) 14.8 % 11/16/19 18:40 Neutrophils % (Manual) 52.6 % 11/16/19 18:40 Lymphocytes % (Manual) 27.7 % 11/16/19 18:40 Monocytes % (Manual) 12.5 % 11/16/19 18:40 Eosinophils % (Manual) 1.8 % 11/16/19 18:40 Basophils % (Manual) 0.9 % 11/16/19 18:40 Metamyelocytes % (Man) 4.5 % 11/16/19 18:40 Neutrophils # (Manual) 2.44 K/uL (1.4-6.5) 11/16/19 18:40 Total Absolute Neuts 2.44 K/uL (1.4-6.5) 11/16/19 18:40 Lymphocytes # (Manual) 1.29 K/uL (1.2-3.4) 11/16/19 18:40 Total Abs Lymphocytes 1.29 K/uL (1.2-3.4) 11/16/19 18:40 Monocytes # (Manual) 0.58 K/uL (0.11-0.59) 11/16/19 18:40 Eosinophils # (Manual) 0.08 K/uL (0-0.5) 11/16/19 18:40 Basophils # (Manual) 0.04 K/uL (0-0.2) 11/16/19 18:40 Metamyelocytes # (Man) 0.21 K/uL (0-0) H 11/16/19 18:40 Platelet Estimate Decreased (Normal) L 11/16/19 18:40 Anisocytosis Present 11/16/19 18:40 PT 11.3 Seconds (9.0-12.0) 11/16/19 18:40 INR 1.1 (0.9-1.1) 11/16/19 18:40 APTT 26.2 Seconds (21.0-31.0) 11/16/19 18:40 PTT Ratio 0.9 11/16/19 18:40 Sodium 140 mmol/L (136-145) 11/16/19 18:40 Potassium 4.3 mmol/L (3.5-5.1) 11/16/19 18:40 Chloride 102 mmol/L (98-107) 11/16/19 18:40 Carbon Dioxide 31 mmol/L (21-32) 11/16/19 18:40 Anion Gap 8.0 (3-11) 11/16/19 18:40 BUN 24 mg/dl (7-18) H 11/16/19 18:40 Creatinine 1.06 mg/dl (0.6-1.4) 11/16/19 18:40 Est Cr Clr Drug Dosing 79.0 ml/min 11/16/19 18:40 Est GFR ( Amer) 79.7 11/16/19 18:40 Est GFR (Non-Af Amer) 68.8 11/16/19 18:40 BUN/Creatinine Ratio 22.8 (10-20) H 11/16/19 18:40 Glucose 93 mg/dl (70-99) 11/16/19 18:40 Calcium 9.4 mg/dl (8.5-10.1) 11/16/19 18:40 Magnesium 2.1 mg/dl (1.8-2.4) 11/16/19 18:40 Total Bilirubin 0.5 mg/dl (0.2-1) 11/16/19 18:40 AST 78 U/L (15-37) H 11/16/19 18:40 ALT 35 U/L (12-78) 11/16/19 18:40 Alkaline Phosphatase 168 U/L (45-117) H 11/16/19 18:40 Troponin I < 0.015 ng/ml (0-0.045) 11/16/19 18:40 NT-Pro-B Natriuret Pep 694 pg/ml (0-900) 11/16/19 18:40 Total Protein 6.2 gm/dl (6.4-8.2) L 11/16/19 18:40 Albumin 2.4 gm/dl (3.4-5.0) L 11/16/19 18:40 Globulin 3.8 gm/dl (2.5-4.0) 11/16/19 18:40 Albumin/Globulin Ratio 0.6 (0.9-2) L 11/16/19 18:40 Urine Color Yellow 11/16/19 17:20 Urine Appearance Clear (Clear) 11/16/19 17:20 Urine pH 5.0 (4.5-7.5) 11/16/19 17:20 Ur Specific [place] 1.017 (1.000-1.030) 11/16/19 17:20 Urine Protein Trace (Negative) H 11/16/19 17:20 Urine Glucose (UA) Negative (Negative) 11/16/19 17:20 Urine Ketones Negative (Negative) 11/16/19 17:20 Urine Blood Negative (Negative) 11/16/19 17:20 Urine Nitrite Negative (Negative) 11/16/19 17:20 Urine Bilirubin Negative (Negative) 11/16/19 17:20 Urine Urobilinogen Negative (Negative) 11/16/19 17:20 Ur Leukocyte Esterase Negative (Negative) 11/16/19 17:20 Urine WBC (Auto) 1-5 /hpf (0-5) 11/16/19 17:20 Urine RBC (Auto) 0-4 /hpf (0-4) 11/16/19 17:20 U Hyaline Cast (Auto) 1-5 /lpf (0-5) 11/16/19 17:20 U Epithel Cells (Auto) 0-5 /lpf (0-5) 11/16/19 17:20 Urine Bacteria (Auto) Negative (Negative) 11/16/19 17:20 Diagnostic Findings Chest x-ray : 1. Persistent bilateral pleural effusions left greater than right 2. Relatively stable loculated left apical pneumothorax 3. Persistent left lower lung zone airspace opacities, atelectatic versus infectious/inflammatory 4. Diffuse interstitial thickening. While likely representing pulmonary edema, an interstitial inflammatory process or lymphangitic tumor spread could appear similar RLE venous Dopplers: Acute right lower extremity DVT with involvement of the peroneal veins. No evidence of [id number] thrombus. EKG as per my interpretation : Rate 95, NSR, RAD, LP FB, RBBB, incomplete LBBB
[2019-11-16 21:20] LABS: Base Excess ABG 5.6 mEq/L (-9-1.8); HCO3 ABG 32 mmol/L (19-24); Oxygen Saturation ABG 90.7 % (90-95); PCO2 ABG 56 mmHg (35-46); PO2 ABG 71 mmHg (80-95); pH ABG 7.37 (7.35-7.45)
[2019-11-16] MEDS ORDERED: MoRPHine SULFATE 2 MG/ML CARP IV PRN (21:24)
[2019-11-16 21:37] LABS: Allen Test Pos (Pos)
[2019-11-16] MEDS ORDERED: FUROSEMIDE 40 MG/4 ML VIAL IV STA (21:39)
[2019-11-16] MEDS ORDERED: ALBUT/IPRATROP 3MG/0.5MG NEB 3 ML VIAL NEB PRN (22:48)
[2019-11-16] MEDS ORDERED: CARBOHYDRATES FOR HYPOGLYCEMIA PO PRN (22:48)
[2019-11-16] MEDS ORDERED: ICU PROTOCOL FOR HYPERGLYCEMIA PRN (22:48)
[2019-11-16] MEDS ORDERED: GLUCOSE 40% GEL 15 GM TUBE PO PRN (22:48)
[2019-11-16] MEDS ORDERED: GLUCOSE 10 TABS/TUBE PO PRN (22:48)
[2019-11-16] MEDS ORDERED: TRAMADOL HCL 50 MG TABLET PO PRN (22:48)
[2019-11-16] MEDS ORDERED: PROMETHAZINE HCL 12.5 MG in SODIUM CHLORIDE 0.9% 50 ML IV PRN (22:48)
[2019-11-16] MEDS ORDERED: FLUTICASONE PROPIONATE NA SPR 16 GM BTL PRN (22:48)
[2019-11-16] MEDS ORDERED: DEXTROSE 50% 50 ML SYRINGE IV PRN (22:48)
[2019-11-16] MEDS ORDERED: GLUCAGON FOR INJ 1 MG VIAL SQ PRN (22:48)
--- NOTE | 2019-11-16 22:58 | Critical Care Consultation ---
Date of Consultation November 16, 2019 Assessment & Plan (1) Acute respiratory failure with hypoxia: Impression: 74-year-old male with recent diagnosis of metastatic breast cancer and left malignant pleural effusion, now presents with acute hypoxic respiratory failure Neuro - [facility] ICU: Negative Cardiac - Currently hemodynamically stable and normotensive and in normal sinus rhythm -Troponin negative -We will continue to monitor on telemetry -Continue home dose amlodipine Respiratory - Acute hypoxic respiratory failurepatient presents with increased shortness of breath found to have pulse ox in the 80s on room air and placed on oxygen mask -Continue to work of breathing now improved was transitioned to high flow nasal cannula, will continue to wean as tolerated -ABG 7.3 //32, hypercapnia chronic as is currently compensated -Patient with left malignant pleural effusion, stable left pneumothorax; has received thoracentesis x2 and pigtail catheter on previous admission -Per conversation with operations and maintenance specialist, patient showed little improvement after last thoracentesis -Follows with Dr. Neff outpatient, was recommended Pleurx catheter on recent follow-up appointment -Consult inpatient pulmonology -CTA chest negative for PE, was temporarily started on Argatroban drip empirically, now DC'd -CTA: No acute PE, redemonstrated left breast mass with associated skin thickening. Left axillary lymphedemopathy, likely ina metastatic disease. Large left pleural effusion. Loculated approximately 20% left pneumothorax. Compressive atelectasis in both lungs, left greater than right. Septal thickening and groundglass lung densities bilaterally, appearing somewhat irregular in the left upper lobe. Widespread osseous metastatic disease. -Given 40 IV Lasix -Continue nebs as needed -Cannot rule out potential component of infectious process at this time, see ID below -Continuous monitoring on pulse ox, wean oxygen as tolerated GI - N.p.o. for now RENAL/LYTES - Creatinine within normal limits monitor routine BMPs and replete electrolytes as indicated - Strict I's and O's ENDO - DM type IIICU hyperglycemic protocol -Continue glargine/aspart Hypothyroidrecent TSH within normal limits -Continue Synthroid HEME - Pancytopenialikely secondary to bone metastasis as seen on CT, patient has not undergone chemo or radiation at this time -Currently no indication for transfusion, continue to trend CBC -No evidence of bleeding or hemorrhage, INR within normal limit -HIT lab pending; follow-up anemic work-up labs -Consult to heme-onc ID -placed on Zosyn as unable rule out pneumonia at this time -No signs of sepsis this patient who was afebrile, leukopenia -Pro-Martinez pending -MRSA negative -Pleural specimen from 10/11 noninfectious -UA unremarkable LINES/IV ACCESS - Peripheral IVs DVT -lower extremity Doppler showed acute right lower extremity DVT with involvement of the peroneal veins. No evidence of [id number]-[id number] thrombus -CTA chest negative for PE as discussed above -Starting therapeutic dose Lovenox twice daily Thank you for allowing us to participate in the care of this patient. Please refer to my attending physician's documentation for any further recommendations. (2) Hypoxia: (3) History of bladder cancer: (4) Large mass of breast: (5) Abnormal CT scan of lung: (6) Diabetes mellitus, type II: (7) Hypertension: (8) Hyperlipidemia: (9) Pleural effusion, left: (10) Breast cancer in male: (11) Metastatic cancer to bone: (12) Pancytopenia: History of Present Illness Attending Physician: Nancy Caldwell MD History of Present Illness Patient is a 74-year-old male with PMH of prostate cancer and recent diagnosis of metastatic breast cancer with a recurrent pleural effusion. He presents to the emergency department after being referred by hematology/oncology as they were unable to obtain blood work and outpatient appointment. Patient reports that he has been increasingly short of breath over the past several days and has continued to feel more fatigued and weak. On recent hospital admissions he had pigtail catheter and a thoracentesis. Last thoracentesis of 1 week ago was noted to have little symptomatic relief. He has followed with Dr. Neff in pulmonary clinic and was recently following with [facility] oncology and was scheduled to begin chemo in the following week. In the emergency department patient was noted to have hypoxia with pulse ox readings in the low 80s, and was started on supplemental oxygen. He was noted to have unilateral swelling of the lower extremity and venous Doppler study revealed acute right lower extremity DVT with involvement of the peroneal veins, CTA of the chest negative for PE. COVID 19 rapid test negative. Patient also found to be pancytopenic and CTA of the chest did show widespread osseous metastatic disease. Patient transferred to ICU for further management at this time and on arrival is alert and oriented. Tachypnea and work of breathing have significantly improved on high flow nasal cannula. CT chest did demonstrate a significantly large left and moderate to large right pleural effusion and patient demonstrates dependence to lay on his left side which he states is been ongoing for the past few weeks. He currently denies headache, dizziness or syncope, sore throat, fevers, productive cough, wheezes, chest pain or palpitations, abdominal pain, nausea or vomiting, or diarrhea. He states that swelling in his lower extremity started about 2 days ago but is not painful. He states that shortness of breath has been ongoing for the past several weeks but has gotten worse over the past couple of days. Attempted to have conversation of CODE STATUS but patient was not ready to make decisions without his present at the bedside. Will remain full code for now. Will continue management in ICU for now. Allergies Allergy/AdvReac Type Severity Reaction Status Date / Time Sulfa (Sulfonamide Allergy Unknown unknown Verified 11/16/19 18:01 Antibiotics) told by allergists after testing -sulfa allergy Home Medications Home Medications Medication Instructions Recorded Confirmed Type albuterol sulfate 2 puff INHALATION QID PRN 05/23/18 11/16/19 History fluticasone propionate [Flonase 2 spray INTRANASAL DAILY PRN 05/23/18 11/16/19 History Allergy Relief] budesonide-formoterol [Symbicort] 2 puff INHALATION BID 10/12/19 11/16/19 History escitalopram oxalate [Lexapro] 20 mg PO HS 10/12/19 11/16/19 History Portable Oxygen #1 ea 10/30/19 10/30/19 Rx lorazepam [Ativan] 1 mg SUBLINGUAL Q8 PRN #90 tab 11/21/19 Rx mirtazapine [Remeron] 30 mg PO HS 30 Days #30 tab 11/21/19 Rx morphine 10 mg BUCCAL Q6H PRN #30 ml 11/21/19 Rx Patient History Medical History Anxiety Bifascicular block RBBB + LAFB. HAD ONE TIME CONSULTATION WITH DR. MORALES IN 2014. NORMAL ECHO 2011. 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: No Beliefs That Will Affect Care: None marital status: Current Living Situation: Spouse Current Living Situation Comment: lives w/ Feels Safe at Home: Yes Assistive Devices: None Review of Systems Review of Systems: All systems reviewed & are unremarkable except as noted in HPI & below Physical Exam Constitutional: cooperative, + in distress and + overweight Eyes: PERRL, conjunctivae normal, anicteric sclerae ENMT: external ear and nose normal, oropharynx normal Neck: trachea midline, no thyromegaly Respiratory: Tachypneic with labored breathing, lung sounds absent and left lower and significantly diminished in left upper lobes, clear to auscultation right husain. No wheezes or crackles Cardiovascular: RRR, no murmur, no edema Heart Sounds: normal S1 and normal S2 Vessels: no JVD Left lower extremity pedal edema Gastrointestinal (Abdomen): Abdomen obese, soft, nontender, normal bowel sounds Skin: no rashes, warm and dry Neurologic: PERRL, EOMI, accommodation nl, no face palsy, no dysarthria Psychiatric: A+Ox3, euthymic affect Results & Data Results & Data ([facility]) Vital Signs (Past 12 Hours) Vital Signs Pulse Pulse Resp BP Pulse Ox 11/16/19 22:15 118/73 92 11/16/19 22:09 101 H 28 H 93 11/16/19 22:03 110 H 36 H 92 11/16/19 21:10 90 22 95 11/16/19 17:20 90 19 85 L 11/16/19 17:18 89 27 H 84 L 11/16/19 17:01 96 H 26 H 132/64 85 L 11/16/19 16:53 107 H 24 142/80 H 87 L Coding Level of Care Code 69689 Office/OBS Consult Lvl 5 Diagnoses Acute respiratory failure with hypoxia J96.01 Hypoxia R09.02 History of bladder cancer Z85.51 Large mass of breast N63.[address] scan of lung R91.8 Diabetes mellitus, type II E11.9 Hypertension I10 Hyperlipidemia E78.5 Pleural effusion, left J90 Breast cancer in male C50.929 Metastatic cancer to bone C79.51 Pancytopenia D61.818
[2019-11-16] MEDS ORDERED: ARGATROBAN CONSULT ACTIVE PRN (23:01)
[2019-11-16] MEDS: INSULIN ASPART 100 UNITS/ML 3 ML PEN SC SCH (23:06)
[2019-11-16] MEDS ORDERED: OPTIRAY 320 125ml IV ONE (23:45)
[2019-11-17] MEDS ORDERED: PIPERACILL/TAZOBAC CONSULT ACTIVE PRN (01:06)
[2019-11-17] MEDS ORDERED: PIPERACILLIN/TAZOBACTAM 3.375 GM in DEXTROSE 5% 100 ML IV ONE (01:15)
[2019-11-17 02:04] LABS: Mean Corpuscular Hgb Conc 31.2 g/dL (32-36)
[2019-11-17 02:13] LABS: Partial Thromboplastin Ratio 1.1; Partial Thromboplastin Time 31.3 Seconds (21.0-31.0)
[2019-11-17 02:14] LABS: Platelet Count 73 K/uL (130-400)
[2019-11-17 02:29] LABS: BUN Creatinine Ratio 21.6 (10-20); Calcium 8.5 mg/dl (8.5-10.1); Creatinine Clr Calc Pharmacy 71.3 ml/min; Est GFR (African American) 74.6; Est GFR (Non-African American) 64.4; Potassium 4.4 mmol/L (3.5-5.1)
[2019-11-17 02:34] LABS: Ferritin 1577.5 ng/ml (8-388)
[2019-11-17 02:41] LABS: Anisocytosis Present; Basophils # (auto) 0.02 K/uL (0-0.2); Basophils % (auto) 0.4 %; Eosinophils # (auto) 0.05 K/uL (0-0.5); Eosinophils % (auto) 1.1 %; Hematocrit (blood only) 25.3 % (42-52); Hemoglobin 7.9 g/dL (14.0-18.0); Immature Granulocytes # (auto) 0.24 K/uL (0.00-0.02); Immature Granulocytes % (auto) 5.4 %; Lymphocytes # (auto) 1.13 K/uL (1.2-3.4); Lymphocytes % (auto) 25.4 %; Mean Corpuscular Hemoglobin 26.1 pg (25-34); Mean Corpuscular Volume 83.5 fL (80-100); Mean Platelet Volume 9.6 fL (7.4-10.4); Monocytes # (auto) 0.87 K/uL (0.11-0.59); Monocytes % (auto) 19.6 %; Neutrophils # (auto) 2.14 K/uL (1.4-6.5); Neutrophils % (auto) 48.1 %; Nucleated RBC # (auto) 0.48 K/uL (0-0); Nucleated RBC % (auto) 10.7 %; RDW Coefficient of Variation 19.9 % (11.5-14.5); RDW Standard Deviation 59.4 fL (36.4-46.3); Red Blood Count 3.03 M/uL (4.7-6.1); Reticulocyte % 1.9 % (0.5-2.0); Reticulocytes # 0.06 10^6/uL (0.02-0.10); White Blood Count 4.45 K/uL (4.8-10.8)
[2019-11-17 02:46] LABS: Folate (Folic Acid) 7.04 ng/ml (>5.38)
[2019-11-17 04:24] LABS: Mean Corpuscular Hgb Conc 30.3 g/dL (32-36)
[2019-11-17 04:40] LABS: BUN Creatinine Ratio 20.5 (10-20); Calcium 8.7 mg/dl (8.5-10.1); Creatinine Clr Calc Pharmacy 67.7 ml/min; Est GFR (Non-African American) 60.4; Phosphorus 4.3 mg/dl (2.5-4.9); Potassium 4.5 mmol/L (3.5-5.1)
[2019-11-17 04:44] LABS: INR 1.1 (0.9-1.1); Prothrombin Time 11.9 Seconds (9.0-12.0)
[2019-11-17 04:48] LABS: Hematocrit (blood only) 26.4 % (42-52); Mean Corpuscular Hemoglobin 25.4 pg (25-34); Mean Corpuscular Volume 83.8 fL (80-100); Nucleated RBC % (auto) 11.8 %; Platelet Count 71 K/uL (130-400); RDW Coefficient of Variation 20.1 % (11.5-14.5); RDW Standard Deviation 59.8 fL (36.4-46.3); Red Blood Count 3.15 M/uL (4.7-6.1); White Blood Count 4.22 K/uL (4.8-10.8)
[2019-11-17 05:19] LABS: Anisocytosis Present; Basophils # (auto) 0.03 K/uL (0-0.2); Basophils % (auto) 0.7 %; Eosinophils # (auto) 0.05 K/uL (0-0.5); Eosinophils % (auto) 1.2 %; Immature Granulocytes # (auto) 0.24 K/uL (0.00-0.02); Immature Granulocytes % (auto) 5.7 %; Lymphocytes # (auto) 1.27 K/uL (1.2-3.4); Lymphocytes % (auto) 30.1 %; Monocytes # (auto) 0.64 K/uL (0.11-0.59); Monocytes % (auto) 15.2 %; Neutrophils # (auto) 1.99 K/uL (1.4-6.5); Neutrophils % (auto) 47.1 %
[2019-11-17] MEDS: PIPERACILLIN/TAZOBACTAM 3.375 GM in DEXTROSE 5% 100 ML IV SCH ×3 (05:52→21:36)
[2019-11-17] MEDS: LEVOTHYROXINE SODIUM 88 MCG TABLET PO SCH (05:52)
--- NOTE | 2019-11-17 05:57 | Critical Care Progress Note ---
Date of Service November 17, 2019 Assessment & Plan (1) Acute respiratory failure with hypoxia: Impression: 74-year-old male with recent diagnosis of metastatic breast cancer and left malignant pleural effusion, now presents with acute hypoxic respiratory failure Neuro - [facility] ICU: Negative Cardiac - Currently hemodynamically stable and normotensive and in normal sinus rhythm -Troponin negative -We will continue to monitor on telemetry -Continue home dose amlodipine Respiratory - -Acute hypoxic respiratory failurepatient presented with increased shortness of breath found to have pulse ox in the 80s on room air and placed on oxygen mask, also given a dose of IV lasix -Work of breathing has slightly improved on HiFlow O2 at 30LPM and 50% O2 -Patient with L malignant pleural effusion, stable L pneumatothorax and has received thoracentesis x2 and pigtail catheter on a previous admission. -Initial concern for PE, CTA chest negative for PE, but did show effusions noted above, metastatic disease, and widespread osseous metastatic disease. -Pulmonology consulted, patient may require a pleurx catheter during this stay -Continue nebs -Wean O2 as tolerated. -Due to patients further metastasis and poor prognosis, Palliative Medicine consulted. GI - N.p.o. for now RENAL/LYTES - Creatinine within normal limits monitor routine BMPs and replete electrolytes as indicated - Strict I's and O's ENDO - DM type IIICU hyperglycemic protocol -Continue glargine/aspart Hypothyroidrecent TSH within normal limits -Continue Synthroid HEME - -Pancytopenialikely secondary to bone metastasis as seen on CT, patient has not undergone chemo or radiation at this time -No indication for transfusion, continue to trend CBC -No evidence of bleeding or hemorrhage, INR within normal limit -HIT lab pending; follow-up anemic work-up labs -Consult to heme-onc -Prior to the Lovenox, patient had not received heparin during this admission. Do not believe at this time for a high probability of heparin inducted thrombocytopenia. -Plan to continue with Lovenox for continued treatment of DVT ID -placed on Zosyn as unable rule out pneumonia at this time -No signs of sepsis this patient who was afebrile, leukopenia -Pro-Martinez negative -MRSA negative -Pleural specimen from 10/11 noninfectious -UA unremarkable LINES/IV ACCESS - Peripheral IVs DVT -lower extremity Doppler showed acute right lower extremity DVT with involvement of the peroneal veins. No evidence of [id number] thrombus -CTA chest negative for PE as discussed above -Continue therapeutic dose Lovenox twice daily Thank you for allowing us to participate in the care of this patient. Please refer to my attending physician's documentation for any further recommendations. 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 Mcdonald was resident physician during care of patient. I separately evaluated patient for medrano portions of the history and the exam. I was present during the critical portion of medical decision making, and I discussed the case with the resident. I generally agree with the findings and plan. Discussed with pharmacy, patient has not received heparin in this admission, I do not believe the patient has a high probability for heparin-induced thrombocytopenia we will continue with Lovenox versus argatroban, the underlying thromboembolic disease process itself can have the thrombocytopenia. Has not seen oncology yet, has diffuse metastatic disease, patient would benefit from palliative consult and Pleurx catheter would likely be palliative as well. Subjective Patient evaluated at the bedside this AM. Patient initially asleep, but was easily arousable to vocal stimulation. Upon discussion patient stated that he was feeling better than prior, however, was still having some SOB and difficulty with deep inspiration. He noted that he was not having any chest pain, chest pressure, or dizziness. Denied any fever or chills. Review of Systems Constitutional: + weakness; no fever and no chills Eyes: no worsening vision Respiratory: + cough, + dyspnea and + dyspnea on exertion Cardiovascular: + dyspnea and + dyspnea on exertion; no chest pain, no radiating jaw, neck or arm pain and no palpitations Gastrointestinal: no abdominal pain, no nausea and no vomiting Physical Exam Constitutional: + ill appearing Eyes: PERRL, conjunctivae normal, anicteric sclerae normal visual husain by confrontation ENMT: external ear and nose normal, oropharynx normal Respiratory: + labored breathing (on HiFlow ) and + cough Auscultation: + diminished lung sounds (L lung field ); no wheezes Cardiovascular: Rate/Rhythm: regular rate and regular rhythm Heart Sounds: no gallop and no murmur Vessels: normal peripheral pulses Extremities: + edema (+1) Gastrointestinal (Abdomen): Inspection/Auscultation: abdomen normal to inspection and normal bowel sounds; abdomen not distended Percussion/Palpation: abdomen nontender Psychiatric: Orientation: alert and oriented x 3 Results & Data Results & Data ([facility]) Vital Signs (Past 12 Hours) Vital Signs Temp Pulse Pulse Resp BP BP Pulse Ox 11/17/19 05:33 36.6 C 84 17 120/47 L 96 11/17/19 04:31 36.8 C 82 17 99/56 L 95 11/17/19 03:31 36.9 C 83 22 95/54 L 96 11/17/19 03:15 90 26 H 99 11/17/19 02:31 37.0 C 82 19 106/51 L 100 11/17/19 02:04 98 H 24 100 11/17/19 01:31 37.1 C 88 20 104/52 L 100 11/17/19 00:31 37.3 C 92 H 27 H 109/56 L 100 11/17/19 00:00 98 H 11/16/19 23:44 37.2 C 102 H 32 H 109/57 L 95 11/16/19 22:58 107 H 11/16/19 22:43 36.7 C 98 H 22 142/62 H 92 11/16/19 22:32 108 H 25 H 142/62 H 92 11/16/19 22:15 118/73 92 11/16/19 22:09 101 H 28 H 93 11/16/19 22:03 110 H 36 H 92 11/16/19 21:10 90 22 95 Critical Care Time Critical Care Time: Yes Total Critical Care Time: 45 I have personally spent 45 minutes of critical care time in the direct management of this patient. This is a life/limb threatening event. This includes time spent evaluating patient, direct bedside care, chart review, placing orders, interpretation of diagnostic studies, discussion with consultants, patient, and/or family members regarding treatment decisions, as well as other required patient management activities. This time is exclusive of all separately billable procedures, and teaching time and separate from and in addition to any other critical care service time. Resident Activity Tracking Resident Involvement: Resident Care Provided Care Provided: Adult [facility]
[2019-11-17] MEDS: INSULIN ASPART 100 UNITS/ML 3 ML PEN SC SCH ×3 (07:28→18:57)
[2019-11-17] MEDS ORDERED: Nursing to Pharmacy Communication SCH (07:30)
--- NOTE | 2019-11-17 08:41 | CT Scan Report ---
CHEST CTA for PULMONARY ARTERIES CT DOSE: 1116.48 mGy.cm HISTORY: Worsening shortness of breath. TECHNIQUE: Multiaxial CT images of the chest were performed following the intravenous administration of contrast to evaluate the pulmonary arteries. Maximal intensity projection images were also obtaine d. A dose lowering technique was utilized adhering to the principles of ALARA. COMPARISON STUDY: Chest CT 10/12/2019. FINDINGS: Normal caliber thoracic aorta with no evidence for dissection. The heart is normal in size. There is mild right mediastinal shift which has improved. No filling defects within the pulmonary ar teries to suggest pulmonary embolus. Of note, the right lung subsegmental branches are partially obsc ured by motion artifact. A moderate right pleural effusion has developed in the interval. There is a loculated large left hydropneumothorax. This has slightly improved the interval. There is left pleura l thickening and near complete collapse of the left lung. There is improved aeration within the left lung apex compared to the prior study. Left axillary lymphadenopathy and a left breast mass are again noted. There is extensive subcutaneous edema within the left chest wall. Old, healed left-sided rib fractures. Scattered patchy areas of sclerosis within the visualized osseous structures consistent wi th osteoblastic metastatic disease. There is a pathologic mild anterior wedge-shaped compression frac ture at T10. This remains unchanged. Interlobular septal thickening throughout the lungs suggest a co mponent of pulmonary edema or less likely metastatic disease. This has progressed. Multiple pulmonary nodules within the right lung suggests an ectatic disease. Patchy area of consolidation within the l maryanne apices could represent a component of the pulmonary edema or pneumonitis. These are new from the prior study. IMPRESSION: 1. No evidence for pulmonary embolus. 2. Left breast mass, skin thickening, left axillary lymphadenopathy again noted. 3. Large left hydropneumothorax resulting in mild right mediastinal shift. This has slightly improved . This could be secondary to the previous thoracentesis. Secondary infection cannot be excluded. 4. Left pleural thickening is again noted suggestive of metastatic disease. 5. Moderate right pleural effusion which is new compared the prior study. 6. Interlobular septal thickening and patchy airspace opacities within the lung apices. This raises t he possibility of pulmonary edema versus lymphangitic spread of tumor. 7. Widespread osseous metastatic disease including a stable mild compression fracture at T10. 8. Additional findings as described above. ACT 112: Negative or not required by law. Electronically signed by: Brian Muir M.D. 11/17/2019 8:40 AM
[2019-11-17] MEDS: ENOXAPARIN 100 MG/1ML SYR SQ SCH (09:05)
[2019-11-17] MEDS: INSULIN GLARGINE SOLOSTAR 100 UNITS/ML 3 ML PEN SC SCH (09:20)
--- NOTE | 2019-11-17 10:02 | Billing Data ---
Date of Service November 17, 2019 Coding Level of Care Code Critical Care 1st 30-74 mins Time Spent (min) 55 Comment I have personally spent 55 minutes of critical care time in the direct management of this patient. This is a life/limb threatening event. This includes time spent evaluating patient, direct bedside care, chart review, placing orders, interpretation of diagnostic studies, discussion with consultants, patient, and/or family members regarding treatment decisions, as well as other required patient management activities. This time is exclusive of all separately billable procedures, and teaching time and separate from and in addition to any other critical care service time.
--- NOTE | 2019-11-17 12:02 | Pulmonary Consultation ---
Date of Consultation November 17, 2019 Assessment & Plan (1) Acute respiratory failure with hypoxia: --Acute hypoxic respiratory failure Presenting with bilateral pleural effusion and interstitial thickening Patient has history of left-sided pleural effusion status post thoracentesis x2 This time he has bilateral pleural effusion Need to rule out cardiac etiology. Recommend 2D echo Continue with O2 supplementation. BiPAP nightly and PRN shortness of breath --Pleural effusion b/l, left-sided ex vacuo pneumothorax Initial plan for the bow rehairer was Pleurx catheter Risks and benefits of the procedure explained to the patient. He understands and wants to go ahead with the procedure. If the right sided pleural effusion doesn't improve with diuretics then will do thoracentesis to make sure it is also not malignant. --Pancytopenia Platelet count of 71 PT/INR within normal limit --Prognosis guarded Recommend palliative care Plan: Recommend 2D echo. C/w diuresis Patient got Lovenox today. Hold Lovenox as plan to put PleurX catheter tomorrow in the afternoon. Consent signed, witnessed by the nurse and put in the chart. c/w HiFlow with BiPAP Qhs and PRN SOB. Please note the above document was generated using voice recognition software. It may contain grammatical, syntax or spelling errors. (2) Pleural effusion: (3) Breast cancer in male: History of Present Illness Attending Physician: Nancy Caldwell MD History of Present Illness 74-year-old male with past medical history of metastatic breast cancer with recurrent pleural effusion status post thoracentesis multiple times on the left side. History of ex vacuo pneumothorax on the left. Presented to hospital with increasing shortness of breath going on for the last couple of days along with generalized fatigue and weakness. Patient had thoracentesis done on 11/12/[address] Benitez with removal of 1 L of fluid. Patient had previous thoracentesis done by Dr. Neff for which cytology was positive for malignancy. CT chest showed bilateral pleural effusion with interstitial thickening. At the time of examination patient states he feels better when he lying on the left side. He denies any chest pain but chest tightness. No fever or chills. No dysuria. No diarrhea. No MANNING, No blurry vision. States that he feels better than when he came to the hospital. Allergies Allergy/AdvReac Type Severity Reaction Status Date / Time Sulfa (Sulfonamide Allergy Unknown unknown Verified 11/16/19 18:01 Antibiotics) told by allergists after testing -sulfa allergy Home Medications Home Medications Medication Instructions Recorded Confirmed Type Lantus U-100 Insulin 10 unit SUBCUT QAM 05/23/18 11/16/19 History albuterol sulfate 2 puff INHALATION QID PRN 05/23/18 11/16/19 History fluticasone propionate [Flonase 2 spray INTRANASAL DAILY PRN 05/23/18 11/16/19 History Allergy Relief] amlodipine 2.5 mg PO HS 10/12/19 11/16/19 History budesonide-formoterol [Symbicort] 2 puff INHALATION BID 10/12/19 11/16/19 History escitalopram oxalate [Lexapro] 20 mg PO HS 10/12/19 11/16/19 History finasteride [Proscar] 5 mg PO HS 10/12/19 11/16/19 History levothyroxine 88 mcg PO QAM 10/12/19 11/16/19 History rosuvastatin [Crestor] 20 mg PO QDL 10/12/19 11/16/19 History Januvia 50 mg PO QDL #0 tab 10/16/19 11/16/19 Rx furosemide [Lasix] 20 mg PO DAILY #30 tab 10/16/19 11/16/19 Rx potassium chloride [Klor-Con M20] 20 meq PO QAM #30 tab 10/16/19 11/16/19 Rx fexofenadine 180 mg tablet 180 mg PO DAILY PRN tab 10/19/19 11/16/19 History Portable Oxygen #1 ea 10/30/19 10/30/19 Rx Patient History Medical History Anxiety Bifascicular block RBBB + LAFB. HAD ONE TIME CONSULTATION WITH DR. MORALES IN 2015. NORMAL ECHO 2011. Diabetes mellitus, type II On insulin and PO meds History of prostate cancer 7 YEARS AGO, HAD 45 LUPRON INJECTIONS Hyperlipidemia Hypertension Hypothyroidism Malignant neoplasm of bladder neck Surgical History History of adenoidectomy History of cystoscopy TURBT PROCEDURE, MULTIPLE CYSTOS History of herniorrhaphy History of tonsillectomy Family History Mother Diabetes Social History Smoking Status: Never smoker Second Hand Exposure: No; Hx Alcohol Use: Yes Alcohol type: beer Hx Substance Use: No Preferred Language: Estonian Communication Ability: Effective Consultant Required: No Beliefs That Will Affect Care: None marital status: Current Living Situation: Spouse Current Living Situation Comment: lives w/ Other Information That Helps Us Care for You: No Feels Safe at Home: Yes Safety Concerns: Feels Safe At This Time Assistive Devices: Oxygen - Continuous and Walker Review of Systems Review of Systems: All systems reviewed & are unremarkable except as noted in HPI & below Physical Exam Physical Exam: Constitutional: No acute distress HEENT: EOMI, PERRLA Respiratory system: decreased air entry bilaterally, no wheeze, no rhonchi, mild crackles b/l LL CVS: S1-S2 positive, no murmurs or gallops Abdomen: Soft, nontender, nondistended, positive bowel sounds x4 Extremities: +2 pulses bilaterally radialis/ dorsalis pedis, no cyanosis, +2 pittin edema b/l LE and LUE Neuro: Awake alert oriented x3 Psych: Normal mood and affect G/U: + Myers Skin: no rashes, warm and dry Lymphatic: no cervical or axillary lymphadenopathy Results & Data Results & Data ([facility]) Vital Signs (Past 12 Hours) Vital Signs Temp Pulse Pulse Pulse Resp BP Pulse Ox 11/17/19 10:53 88 20 97 11/17/19 08:32 36.6 C 75 17 129/63 95 11/17/19 08:00 82 11/17/19 07:34 86 28 H 97 11/17/19 07:32 36.7 C 84 25 H 113/72 96 11/17/19 05:33 36.6 C 84 17 120/47 L 96 11/17/19 04:31 36.8 C 82 17 99/56 L 95 11/17/19 03:31 36.9 C 83 22 95/54 L 96 11/17/19 03:15 90 26 H 99 11/17/19 02:31 37.0 C 82 19 106/51 L 100 11/17/19 02:04 98 H 24 100 09/29/20 01:31 37.1 C 88 20 104/52 L 100 11/17/19 00:31 37.3 C 92 H 27 H 109/56 L 100 11/17/19 04:08 11/17/19 04:08 PG Care Time/CCT Total # of Minutes Spent Total Time Spent with Patient: Total time spent is greater than 50% in coordination of care (as documented) at patient's floor/unit and/or counseling patient: Coding Level of Care Code 81273 Initial Inpt Care Lvl 3 Diagnoses Acute respiratory failure with hypoxia J96.01 Pleural effusion J90 Breast cancer in male C50.929
[2019-11-17] MEDS: ROSUVASTATIN CALCIUM 20 MG TAB PO SCH (12:19)
--- NOTE | 2019-11-17 14:19 | Palliative Care Consultation ---
Date of Consultation November 17, 2019 Assessment & Plan (1) Goals of care, counseling/discussion: Patient is a 74-year-old male with a past medical history significant for diabetes, hypertension, HLD, hypothyroid, prostate cancer-7 years ago, treated with Lupron, bladder cancer diagnosed in May 2018-surgery only who was recently hospitalized here at [facility] from 10/11-10/15 for shortness of breath and hypoxia. He was found to have a large left pleural effusion, CT scan also showed a 5.3 cm left breast mass with increased adenopathy and a T10 compression fracture as well as lung nodules. Patient underwent thoracentesis on 10/12- pathology was positive for neoplasm, breast primary, estrogen positive, progesterone positive, HER-2/LE negative. Patient had urine cytology performed on 10/13 which was negative for malignancy. Patient was being followed by pulmonology as an outpatient with a plan for repeat When patient became symptomatic. Patient underwent thoracentesis on 11/11 and had 1 L removed. Patient presented to [facility] on 11/15 for increased shortness of breath, increased edema, and weakness. Patient currently in the ICU on high flow nasal cannula at 30 L/min with sats of 97%. Patient has a large left pleural effusion-plan is for Pleurx catheter placement later today. Labs on exam that were significant was a white count of 4.64, hemoglobin 8.7, platelets 74K, and an albumin of 2.4. -Patient seen and examined, he is awake alert and oriented x4. Patient with some shortness of breath with conversation. Patient is lying in bed with his left side down to improve aeration. Patient is currently a full code-he would prefer to have further discussions regarding CODE STATUS as well as goals of care when his can be present. -We will plan to have further discussions after patient has catheter placed and some fluid removed to improve his comfort and ability to participate in conversation, spoke with his , Rosario, at [phone] -plan is to meet at 2:00 on 11/18 to have further discussions regarding goals of care and CODE STATUS. -Patient and have 1 son who lives in [place], they also have a 1-year-old grandson. 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 His is also a CPA but continues to work remotely. -Patient reports he has never undergone chemotherapy before-his prostate cancer was treated with Lupron alone, and his bladder cancer was treated with surgery alone. -Patient reports that oncology has planned infusion chemotherapy followed by tamoxifen. Discussed with patient goals of chemotherapy in general terms. -Patient has significant left upper extremity lymphedema-he may benefit from palliative chemo to reduce some of the adenopathy which may improve the lymphedema as well as decreased reaccumulation of pleural fluid. -PPS 60% (2) Pleural effusion, left: Recurrent pleural effusion, status post thoracentesis x2. Plan for Pleurx catheter placement today (3) Hypoxia: Requiring O2 via high flow nasal cannula (4) Breast cancer in male: Planned for palliative chemo followed by tamoxifen-has not yet started treatment (5) History of bladder cancer: Status post resection-urine cytology negative for malignancy on 10/14/2019 (6) Prostate cancer: Treated with Lupron History of Present Illness Reason for Consultation: Address goals of care as well as CODE STATUS Requesting Physician: Dr. Kasi Mcdonald Attending Physician: Nancy Caldwell MD History of Present Illness Chart reviewed, patient seen and examined in the ICU, no family at bedside. Patient is a 74-year-old male with a past medical history significant for diabetes, hypertension, HLD, hypothyroid, prostate cancer-7 years ago, treated with Lupron, bladder cancer diagnosed in May 2018-surgery only who was recently hospitalized here at [facility] from 10/11-10/15 for shortness of breath and hypoxia. He was found to have a large left pleural effusion, CT scan also showed a 5.3 cm left breast mass with increased adenopathy and a T10 compression fracture as well as lung nodules. Patient underwent thoracentesis on 10/12- pathology was positive for neoplasm, breast primary, estrogen positive, progesterone positive, HER-2/LE negative. Patient had urine cytology performed on 10/13 which was negative for malignancy. Patient was being followed by pulmonology as an outpatient with a plan for repeat When patient became symptomatic. Patient underwent thoracentesis on 11/11 and had 1 L removed. Patient presented to [facility] on 11/15 for increased shortness of breath, increased edema, and weakness. Patient currently in the ICU on high flow nasal cannula at 30 L/min with sats of 97%. Patient has a large left pleural effusion-plan is for Pleurx catheter placement later today. Labs on exam that were significant was a white count of 4.64, hemoglobin 8.7, platelets 74K, and an albumin of 2.4. -Patient seen and examined, he is awake alert and oriented x4. Patient with some shortness of breath with conversation. Patient is lying in bed with his left side down to improve aeration. Patient is currently a full code-he would prefer to have further discussions regarding CODE STATUS as well as goals of care when his can be present. -We will plan to have further discussions after patient has catheter placed and some fluid removed to improve his comfort and ability to participate in conversation, spoke with his , Rosario, at [phone] -plan is to meet at 2:00 on 11/18 to have further discussions regarding goals of care and CODE STATUS. -Patient and have 1 son who lives in [place], they also have a 1-year-old grandson. 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 His is also a CPA but continues to work remotely. -Patient reports he has never undergone chemotherapy before-his prostate cancer was treated with Lupron alone, and his bladder cancer was treated with surgery alone. -Patient reports that oncology has planned infusion chemotherapy followed by tamoxifen. Discussed with patient goals of chemotherapy in general terms. -Patient has significant left upper extremity lymphedema-he may benefit from palliative chemo to reduce some of the adenopathy which may improve the lymphedema as well as decreased reaccumulation of pleural fluid. -PPS 60% Allergies Allergy/AdvReac Type Severity Reaction Status Date / Time Sulfa (Sulfonamide Allergy Unknown unknown Verified 11/16/19 18:01 Antibiotics) told by allergists after testing -sulfa allergy Home Medications Home Medications Medication Instructions Recorded Confirmed Type Lantus U-100 Insulin 10 unit SUBCUT QAM 05/23/18 11/16/19 History albuterol sulfate 2 puff INHALATION QID PRN 05/23/18 11/16/19 History fluticasone propionate [Flonase 2 spray INTRANASAL DAILY PRN 05/23/18 11/16/19 History Allergy Relief] amlodipine 2.5 mg PO HS 10/12/19 11/16/19 History budesonide-formoterol [Symbicort] 2 puff INHALATION BID 10/12/19 11/16/19 History escitalopram oxalate [Lexapro] 20 mg PO HS 10/12/19 11/16/19 History finasteride [Proscar] 5 mg PO HS 10/12/19 11/16/19 History levothyroxine 88 mcg PO QAM 10/12/19 11/16/19 History rosuvastatin [Crestor] 20 mg PO QDL 10/12/19 11/16/19 History Januvia 50 mg PO QDL #0 tab 10/16/19 11/16/19 Rx furosemide [Lasix] 20 mg PO DAILY #30 tab 10/16/19 11/16/19 Rx potassium chloride [Klor-Con M20] 20 meq PO QAM #30 tab 10/16/19 11/16/19 Rx fexofenadine 180 mg tablet 180 mg PO DAILY PRN tab 10/19/19 11/16/19 History Portable Oxygen #1 ea 10/30/19 10/30/19 Rx Patient History Medical History Anxiety Bifascicular block RBBB + LAFB. HAD ONE TIME CONSULTATION WITH DR. MORALES IN 2014. NORMAL ECHO 2011. Diabetes mellitus, type II On insulin and PO meds History of prostate cancer 7 YEARS AGO, HAD 45 LUPRON INJECTIONS Hyperlipidemia Hypertension Hypothyroidism Malignant neoplasm of bladder neck Surgical History History of adenoidectomy History of cystoscopy TURBT PROCEDURE, MULTIPLE CYSTOS History of herniorrhaphy History of tonsillectomy Family History Mother Diabetes Social History Smoking Status: Never smoker Second Hand Exposure: No; Hx Alcohol Use: Yes Alcohol type: beer Hx Substance Use: No Preferred Language: French Communication Ability: Effective Loaders Required: No Beliefs That Will Affect Care: None marital status: Current Living Situation: Spouse Current Living Situation Comment: lives w/ Other Information That Helps Us Care for You: No Feels Safe at Home: Yes Safety Concerns: Feels Safe At This Time Assistive Devices: Oxygen - Continuous and Walker Review of Systems Review of Systems: Patient denies fever, chills, chest pain, incontinence of bowel or bladder Positive for shortness of breath and left upper extremity edema Physical Exam Physical Exam: PE: Patient awake and alert, no acute distress at rest HEENT: EOMI, hearing within normal limits Respiratory: Greatly diminished breath sounds on the left, on O2 at high flow nasal cannula at 30 L/min, increased shortness of breath with conversation CV: Regular rate, no lower extremity edema Abdomen: Not distended, soft nontender Extremities, full range of motion, lymphedema left upper extremity Neuro: Alert and oriented x4 Results & Data ([facility]) Vital Signs (Past 12 Hours) Vital Signs Temp Pulse Pulse Pulse Resp BP Pulse Ox 11/17/19 10:53 88 20 97 11/17/19 08:32 97.9 F 75 17 129/63 95 11/17/19 08:00 82 11/17/19 07:34 86 28 H 97 11/17/19 07:32 98.1 F 84 25 H 113/72 96 11/17/19 05:33 97.9 F 84 17 120/47 L 96 11/17/19 04:31 98.2 F 82 17 99/56 L 95 11/17/19 03:31 98.4 F 83 22 95/54 L 96 11/17/19 03:15 90 26 H 99 11/17/19 02:31 98.6 F 82 19 106/51 L 100 PG Care Time/CCT Total # of Minutes Spent Total Time Spent with Patient: Total time spent 70 minutes with greater than 50% of the time spent at bedside initiating discussion of CODE STATUS as well as goals of care. Spoke with patient's by phone and collaborated with ICU team Coding Level of Care Code 46457 Inpt Consult Level 3 Diagnoses Goals of care, counseling/discussion Z71.89 Pleural effusion, left J90 Hypoxia R09.02 Breast cancer in male C50.929 History of bladder cancer Z85.51 Prostate cancer C61 Time Spent (min) 70
[2019-11-17] MEDS ORDERED: FUROSEMIDE 40 MG in SYRINGE 0 ML IV ONE (16:15)
--- NOTE | 2019-11-17 18:52 | Hospitalist Progress Note ---
Date of Service November 17, 2019 Assessment & Plan (1) Acute respiratory failure with hypoxia: Present on admission with worsening SOB Malignant pleural effusion CXR showed persistent bilateral pleural effusions left greater than right. Persistent left lower lung zone airspace opacities, CTA chest showed no evidence for PE. Large left hydropneumothorax resulting in mild right mediastinal shift. Moderate right pleural effusion which is new compared the prior study. Interlobular septal thickening and patchy airspace opacities within the lung apices. S/P thoracentesis x2, with the most recent done on 11/11 where 1 L of fluid removed Lasix 40mg IV x2 given Levaquin IV in the ER Starting on IV Zosyn, will continue Echo ordered pending Pulm on board plan for pleuX cath tomorrow Continue high flow oxygen Continue monitor closely in the ICU DVT in the Right LE Doppler of LE showed acute right lower extremity DVT with involvement of the peroneal veins. On therapeutic Lovenox Will hold tonight dose of Lovenox for pleurX catheter tomorrow Prostate cancer status post radiation Bladder cancer status post surgery Breast cancer - Planned for palliative chemo followed by tamoxifen-has not yet started treatment Continue follow up with oncology Palliative care on board Plan to have a meeting with patient and on 11/18 to discuss about goal of care and code Status Anemia Hgb 8 today Continue monitor h/h Will transfuse PRBC if hgb drops below 7 DM Type 2 Most recent hemoglobin A1c of 7.20 August 2019 Continue to hold PO DM meds On insulin and Novolog sliding scale Continue monitor BS Hypothyroidism Continue Levothyroxine DVT prophylaxis on Lovenox CODE STATUS Full code Disposition Continue monitor in the ICU Admission and Anticipated Discharge Date Admission Date: November 16, 2019 Subjective Pt was seen and examined Lying in bed with respiratory distress Pt continues to require high flow oxygen He said that his breathing is slightly improves Denies any chest pain, palpitation, dizziness and fever Physical Exam Physical Exam: General- No acute distress Head- atraumatic Eyes- PERRL, EOMI, ENT- oropharynx clear Neck- supple, no JVD Lungs- Diminished BS Heart- regular rhythm; no murmur Abdomen- normal bowel sounds, soft, nontender Extremities- no calf tenderness Neuro- alert, oriented x 3; PERRL, EOMI; no facial palsy; no dysarthria Skin- warm & dry Results & Data Results & Data ([facility]) Vital Signs (Past 12 Hours) Vital Signs Temp Pulse Pulse Resp BP Pulse Ox 11/17/19 15:36 97 H 26 H 95 11/17/19 10:53 88 20 97 11/17/19 08:32 36.6 C 75 17 129/63 95 11/17/19 08:00 82 11/17/19 07:34 86 28 H 97 11/17/19 07:32 36.7 C 84 25 H 113/72 96
[2019-11-17] MEDS ORDERED: ZOLPIDEM TARTRATE 5 MG TAB PO PRN (19:11)
[2019-11-17] MEDS: AMLODIPINE BESYLATE 5 MG TAB PO SCH (21:35)
[2019-11-17] MEDS: ESCITALOPRAM OXALATE 20 MG TAB PO SCH (21:35)
[2019-11-17] MEDS: FINASTERIDE 5 MG TAB PO SCH (21:35)
--- NOTE | 2019-11-17 22:06 | Electrocardiogram Report ---
Test Reason : Blood Pressure : / mmHG Vent. Rate : 094 BPM Atrial Rate : 094 BPM P-R Int : 168 ms QRS Dur : 128 ms QT Int : 380 ms P-R-T Axes : -04 122 016 degrees QTc Int : 475 ms Poor data quality, interpretation may be adversely affected Sinus rhythm with occasional Premature ventricular complexes Right bundle branch block Left posterior fascicular block Bifascicular block Abnormal ECG When compared with ECG of 12-OCT-2019 11:36, Premature ventricular complexes are now Present Left posterior fascicular block is now Present T wave inversion now evident in Inferior leads Confirmed by Jose Rafael Chaudhary ([id number]) on 11/17/2019 10:05:41 PM Referred By: REFERRED SELF Confirmed By:Jose Rafael Chaudhary
[2019-11-18] MEDS: INSULIN ASPART 100 UNITS/ML 3 ML PEN SC SCH ×5 (00:57→23:24)
[2019-11-18 05:21] LABS: INR 1.1 (0.9-1.1); Prothrombin Time 11.6 Seconds (9.0-12.0)
[2019-11-18] MEDS: LEVOTHYROXINE SODIUM 88 MCG TABLET PO SCH (05:24)
[2019-11-18] MEDS: PIPERACILLIN/TAZOBACTAM 3.375 GM in DEXTROSE 5% 100 ML IV SCH ×3 (05:24→21:17)
[2019-11-18 05:41] LABS: Albumin Level 2.1 gm/dl (3.4-5.0); Bilirubin Direct 0.3 mg/dl (0-0.2); Calcium 8.6 mg/dl (8.5-10.1); Creatinine Clr Calc Pharmacy 61.9 ml/min; Est GFR (African American) 62.9; Est GFR (Non-African American) 54.3; Magnesium 2.1 mg/dl (1.8-2.4); Potassium 4.1 mmol/L (3.5-5.1)
[2019-11-18 05:44] LABS: Bilirubin,Total 0.7 mg/dl (0.2-1); Total Protein 5.7 gm/dl (6.4-8.2)
[2019-11-18 05:53] LABS: Hematocrit (blood only) 27.5 % (42-52); Hemoglobin 7.8 g/dL (14.0-18.0); Mean Corpuscular Hemoglobin 24.1 pg (25-34); Mean Corpuscular Hgb Conc 28.4 g/dL (32-36); Mean Corpuscular Volume 84.9 fL (80-100); Mean Platelet Volume 9.5 fL (7.4-10.4); Nucleated RBC # (auto) 0.56 K/uL (0-0); Nucleated RBC % (auto) 11.1 %; Platelet Count 78 K/uL (130-400); RDW Coefficient of Variation 20.1 % (11.5-14.5); RDW Standard Deviation 61.4 fL (36.4-46.3); Red Blood Count 3.24 M/uL (4.7-6.1); White Blood Count 4.99 K/uL (4.8-10.8)
--- NOTE | 2019-11-18 05:55 | Critical Care Progress Note ---
Date of Service November 18, 2019 Assessment & Plan (1) Acute respiratory failure with hypoxia: Impression: 74-year-old male with recent diagnosis of metastatic breast cancer and left malignant pleural effusion, now presents with acute hypoxic respiratory failure Neuro - CAM ICU: Negative Cardiac - Currently hemodynamically stable and normotensive and in normal sinus rhythm -Troponin negative -We will continue to monitor on telemetry -Continue home dose amlodipine Respiratory - -Acute hypoxic respiratory failurepatient presented with increased shortness of breath found to have pulse ox in the 80s on room air and placed on oxygen mask, also given a dose of IV lasix -Work of breathing improved on HiFlow O2 -Patient with L malignant pleural effusion, stable L pneumatothorax and has received thoracentesis x2 and pigtail catheter on a previous admission. -Initial concern for PE, CTA chest negative for PE, but did show effusions noted above, metastatic disease, and widespread osseous metastatic disease. -Pulmonology consulted, patient may require a pleurx catheter during this stay -Pleurx catheter placed today -Will hold Lovenox for 24 more hours -Will continue to drain pleurx 1L q4h and give 50g Albumin 25% after each time as well -Continue nebs -Wean O2 as tolerated. -Due to patients further metastasis and poor prognosis, Palliative Medicine consulted. -Patients to come in today to further discuss code status. GI - -Diet resumed RENAL/LYTES - Creatinine within normal limits monitor routine BMPs and replete electrolytes as indicated - -Strict I's and O's -[facility] ENDO - DM type IIICU hyperglycemic protocol -Continue glargine/aspart Hypothyroidrecent TSH within normal limits -Continue Synthroid HEME - -Pancytopenialikely secondary to bone metastasis as seen on CT, patient has not undergone chemo or radiation at this time -No indication for transfusion, continue to trend CBC -No evidence of bleeding or hemorrhage, INR within normal limit -HIT lab pending -Consult to heme-onc -Prior to the Lovenox, patient had not received heparin during this admission. Do not believe at this time for a high probability of heparin inducted thrombocytopenia. -Plan to continue with Lovenox for continued treatment of DVT -Will hold Lovenox for 24 more hours for s/p Pleurx catheter placement. ID -placed on Zosyn as unable rule out pneumonia at this time -No signs of sepsis this patient who was afebrile, leukopenia -Pro-Martinez negative -MRSA negative -Pleural specimen from 10/11 noninfectious -UA unremarkable LINES/IV ACCESS - Peripheral IVs DVT -lower extremity Doppler showed acute right lower extremity DVT with involvement of the peroneal veins. No evidence of [id number] thrombus -CTA chest negative for PE as discussed above -Continue therapeutic dose Lovenox twice daily once resumed Thank you for allowing us to participate in the care of this patient. Please refer to my attending physician's documentation for any further recommendations. 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 Mcdonald was resident physician during care of patient. I separately evaluated patient for medrano portions of the history and the exam. I was present during the critical portion of medical decision making, and I discussed the case with the resident. I generally agree with the findings and plan. Patient was discussed in multidisciplinary rounds. He had a Pleurx catheter placed and 1 L of fluid was drained. We will continue draining every 4 hours with giving albumin to hopefully prevent reexpansion pulmonary edema. I discussed the course with the patient, previously he had presumptive trapped lung, goals of therapy will be to decrease his symptoms of shortness of breath, hopefully we will be able to drain the fluid completely, he will not reaccumulate quickly, and the lung will expand. He understands those are 3 independent variables. He also understands her goal will be to coordinate with his oncologist with regards to how to best approach his cancer as well as what is metastatic pleural effusions. Symptomatically patient is doing better and he is able to somewhat move from his left decubitus position. Continued ICU observation given we are actively draining the effusions and requires intensive therapy. Subjective Patient seen and evaluated at the bedside. Patient noting that he was still having SOB. No chest pain or pressure. Hoping that he can have this fluid removed today and feel better as a result. Review of Systems Constitutional: + weakness; no fever and no chills Respiratory: + cough, + dyspnea and + dyspnea on exertion Cardiovascular: + dyspnea and + dyspnea on exertion; no chest pain, no radiating jaw, neck or arm pain and no palpitations Gastrointestinal: no abdominal pain, no nausea and no vomiting Physical Exam Constitutional: + ill appearing Eyes: PERRL, conjunctivae normal, anicteric sclerae normal visual husain by confrontation ENMT: external ear and nose normal, oropharynx normal Respiratory: + labored breathing (on HiFlow ) and + cough Auscultation: + diminished lung sounds (L lung field ); no wheezes Cardiovascular: Rate/Rhythm: regular rate and regular rhythm Heart Sounds: no gallop and no murmur Vessels: normal peripheral pulses Extremities: + edema (+1) Gastrointestinal (Abdomen): Inspection/Auscultation: abdomen normal to inspection and normal bowel sounds; abdomen not distended Percussion/Palpation: abdomen nontender Psychiatric: Orientation: alert and oriented x 3 Results & Data Results & Data ([facility]) Vital Signs (Past 12 Hours) Vital Signs Temp Pulse Pulse Resp BP Pulse Ox 11/18/19 04:32 36.4 C L 82 17 126/64 93 11/18/19 03:32 36.3 C L 81 18 110/54 L 93 11/18/19 03:31 79 18 93 11/18/19 02:32 36.4 C L 84 20 112/67 93 11/18/19 01:32 36.6 C 79 18 100/63 95 11/18/19 00:32 36.7 C 79 18 111/53 L 96 11/17/19 23:32 36.9 C 87 21 111/56 L 94 11/17/19 23:13 83 22 91 11/17/19 22:32 37.0 C 86 16 111/47 L 92 11/17/19 21:32 37.0 C 92 H 17 111/43 L 97 11/17/19 20:32 37.0 C 90 25 H 120/60 92 11/17/19 19:55 89 26 H 95 11/17/19 19:32 37.1 C 87 21 99/66 L 97 11/17/19 18:32 37.0 C 91 H 27 H 111/54 L 95 Resident Activity Tracking Resident Involvement: Resident Care Provided Care Provided: Adult [facility]
[2019-11-18 06:03] LABS: Anisocytosis Present; Basophils # (auto) 0.06 K/uL (0-0.2); Basophils % (auto) 1.2 %; Eosinophils # (auto) 0.07 K/uL (0-0.5); Eosinophils % (auto) 1.4 %; Immature Granulocytes # (auto) 0.32 K/uL (0.00-0.02); Immature Granulocytes % (auto) 6.4 %; Lymphocytes # (auto) 1.22 K/uL (1.2-3.4); Lymphocytes % (auto) 24.4 %; Monocytes # (auto) 1.02 K/uL (0.11-0.59); Monocytes % (auto) 20.4 %; Neutrophils % (auto) 46.2 %
[2019-11-18 07:32] LABS: Phosphorus 5.3 mg/dl (2.5-4.9)
[2019-11-18] MEDS: INSULIN GLARGINE SOLOSTAR 100 UNITS/ML 3 ML PEN SC SCH (07:42)
[2019-11-18] MEDS ORDERED: PERFLUTREN LIPID MICROSPHERE (DEFINITY) IV ONE (07:46)
[2019-11-18] MEDS ORDERED: LIDOCAINE HCL 2% (LOCAL) INJ 50 ML VIAL INFIL ONE (08:15)
[2019-11-18] MEDS ORDERED: LIDOCAINE HCL 1% 20 ML VIAL ONE (08:18)
--- NOTE | 2019-11-18 09:12 | Billing Data ---
Date of Service November 18, 2019 Coding Level of Care Code 60155 Subseq Hosp Care Lvl 3
--- NOTE | 2019-11-18 09:33 | Pulmonology Progress Note ---
Date of Service November 18, 2019 Assessment & Plan (1) Acute respiratory failure with hypoxia: --Acute hypoxic respiratory failure Presenting with bilateral pleural effusion and interstitial thickening Patient has history of left-sided pleural effusion status post thoracentesis x2 This time he has bilateral pleural effusion Need to rule out cardiac etiology. Recommend 2D echo Continue with O2 supplementation. 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 He understands and wants to go ahead with the procedure. If the right sided pleural effusion doesn't improve with diuretics then will do thoracentesis to make sure it is also not malignant. --Pancytopenia Platelet count of 71 PT/INR within normal limit --Prognosis guarded Recommend palliative care Plan: Follow-up 2D echo report Lovenox on hold since yesterday morning. For Pleurx catheter on the left side today. c/w HiFlow with BiPAP Qhs and PRN SOB. Please note the above document was generated using voice recognition software. It may contain grammatical, syntax or spelling errors. (2) Pleural effusion: (3) Breast cancer in male: Admission and Anticipated Discharge Date Admission Date: November 16, 2019 Subjective Patient seen and examined at bedside. No acute distress, noted with symptoms overnight. Patient is lying on the left side. He states that he feels most comfortable when he is laying on that side. When he changes position he gets a little bit of chest tightness and shortness of breath. Denies any cough. No hemoptysis. He is diuresing well. His -726 in the last 24 hours. No nausea or vomiting. Patient is in a good mood. His mood has always been elevated which is denies to having such condition. Review of Systems Review of Systems: All systems reviewed & are unremarkable except as noted in Subjective Physical Exam Physical Exam: Constitutional: No acute distress HEENT: EOMI, PERRLA Respiratory system: decreased air entry bilaterally, no wheeze, no rhonchi, mild crackles b/l LL, right lung sounds better than yesterday. CVS: S1-S2 positive, no murmurs or gallops Abdomen: Soft, nontender, nondistended, positive bowel sounds x4 Extremities: +2 pulses bilaterally radialis/ dorsalis pedis, no cyanosis, +2 pitting edema b/l LE and LUE Neuro: Awake alert oriented x3 Psych: Normal mood and affect G/U: + Myers Skin: no rashes, warm and dry Lymphatic: no cervical or axillary lymphadenopathy Results & Data Results & Data ([facility]) Vital Signs (Past 12 Hours) Vital Signs Temp Pulse Pulse Resp BP Pulse Ox 11/18/19 07:34 90 18 90 11/18/19 06:32 36.4 C L 80 18 102/55 L 94 11/18/19 05:32 36.4 C L 87 23 115/58 L 93 11/18/19 04:32 36.4 C L 82 17 126/64 93 11/18/19 03:32 36.3 C L 81 18 110/54 L 93 11/18/19 03:31 79 18 93 11/18/19 02:32 36.4 C L 84 20 112/67 93 11/18/19 01:32 36.6 C 79 18 100/63 95 11/18/19 00:32 36.7 C 79 18 111/53 L 96 11/17/19 23:32 36.9 C 87 21 111/56 L 94 11/17/19 23:13 83 22 91 11/17/19 22:32 37.0 C 86 16 111/47 L 92 11/17/19 21:32 37.0 C 92 H 17 111/43 L 97 11/18/19 04:39 11/18/19 04:39 PG Care Time/CCT Total # of Minutes Spent Total Time Spent with Patient: Total time spent is greater than 50% in coordination of care (as documented) at patient's floor/unit and/or counseling patient: Coding Level of Care Code 89887 Subseq Hosp Care Lvl 3 Diagnoses Acute respiratory failure with hypoxia J96.01 Pleural effusion J90 Breast cancer in male C50.929
--- NOTE | 2019-11-18 09:40 | Procedure Note ---
Procedure Note Date of Service November 18, 2019 Procedure: PleurX cuffed catheter insertion Cmm Inspector: Dr. Ion Wilkerson Indication: Malignant pleural effusion on the left side Consent: Signed by patient and verified with timeout prior to procedure Anesthesia: 1% lidocaine without epinephrine local Procedure: Consent was verified and timeout performed. Appropriate imaging studies were reviewed prior to the procedure. Patient was placed in a seated position. Appropriate site above the diaphragm on the left midaxillary line fourth intercostal space for Pleurx catheter insertion was selected. The skin was prepped and draped in normal sterile fashion. Lidocaine was used for local analgesia. Fluid was aspirated via the finder needle. After having the guidewire in. Subcutaneous track was created subcutaneously anteriorly to the site of the guidewire. A small skin amos was made with the scalpel and the dilator over the needle apparatus was advanced over the rib into the pleural space. With the help of guidewire and Seldinger technique, Pleurx catheter was inserted. Hemorrhagic fluid was aspirated 1 L with good flow in the Pleurx container. 1 suture was taken at the distal end from the catheter insertion site. No air leak appreciated after that. Chest x-ray to follow Fluid was not sent for lab as we already have the diagnosis of malignant fluid. The patient tolerated the procedure without obvious complication Complications: None Blood loss: Less than 5 cc. Coding CPT Codes Pulmonary/Thoracic - Pulmonary and Thoracic: 81854 Insert pleural cathereter w/cuff ([id number]) Pulmonary/Thoracic - Pulmonary and Thoracic: 13113 Pleural drainage w/imaging ([id number]) [facility] Procedure Codes (Charges) Pulmonary/Thoracic Procedure 1: Pulmonary and Thoracic: 41150 Insert pleural cathereter w/cuff Procedure 2: Pulmonary and Thoracic: 55110 Pleural drainage w/imaging
--- NOTE | 2019-11-18 09:48 | XRay Report ---
XR chest 1V portable HISTORY: placement of pleurex catheter COMPARISON: Chest 11/08/2019. FINDINGS: Interval placement left basilar pleural catheter. The catheter is partially obscured by ove rlying cardiac leads but appears to terminate at the left lung base. Moderate to large left pleural e ffusion is noted. Small right pleural effusion and airspace opacities persist. Slight decrease in siz e in the loculated small left apical pneumothorax. IMPRESSION: 1. Interval placement left basilar pleural catheter. The catheter is partially obscured by overlying cardiac leads but appears to terminate at the left lung base. 2. Moderate to large left pleural effusion is noted. 3. Slight decrease in size in the loculated small left apical pneumothorax. ACT 112: Negative or not required by law. Electronically signed by: Brian Muir M.D. 11/18/2019 9:47 AM
[2019-11-18] MEDS: ROSUVASTATIN CALCIUM 20 MG TAB PO SCH (11:44)
[2019-11-18] MEDS: ALBUMIN 25% 50 ML IV SCH ×3 (13:35→20:30)
[2019-11-18] MEDS: MoRPHine SULFATE 2 MG/ML CARP IV PRN (14:15)
--- NOTE | 2019-11-18 17:40 | Hospitalist Progress Note ---
Date of Service November 18, 2019 Assessment & Plan (1) Acute respiratory failure with hypoxia: Present on admission with worsening SOB due to Malignant pleural effusion CXR showed persistent bilateral pleural effusions left greater than right. Persistent left lower lung zone airspace opacities, CTA chest showed no evidence for PE. Large left hydropneumothorax resulting in mild right mediastinal shift. Moderate right pleural effusion which is new compared the prior study. Interlobular septal thickening and patchy airspace opacities within the lung apices. S/P pleuX cath placement by pulm ECHO normal EF , no pericardial effusion DVT in the Right LE Doppler of LE showed acute right lower extremity DVT with involvement of the peroneal veins. CTA chest : no PE Metastatic Breast cancer /with malignant pleural effusion- Planned for palliative chemo followed by tamoxifen-has not yet started treatment follows with Hematology Dr Rosado Anemia of chronic disease /metastatic malignancy Hgb 7. 8 today Continue monitor h/h Will transfuse PRBC if hgb drops below 7 DM Type 2 Most recent hemoglobin A1c of 7.20 August 2019 On insulin and Novolog sliding scale Continue monitor BS Hypothyroidism Continue Levothyroxine CODE STATUS Full code Admission and Anticipated Discharge Date Admission Date: November 16, 2019 Subjective had plurex catheter placed today SOb better after drainage of pleural fluid Review of Systems Review of Systems: All systems reviewed & are unremarkable except as noted in HPI & below Physical Exam Constitutional: + ill appearing Eyes: PERRL, conjunctivae normal, anicteric sclerae ENMT: external ear and nose normal, oropharynx normal Neck: trachea midline, no thyromegaly Respiratory: Auscultation: + crackles and + rales Cardiovascular: RRR, no murmur, no edema Gastrointestinal (Abdomen): Inspection/Auscultation: normal bowel sounds Percussion/Palpation: abdomen soft Skin: no rashes, warm and dry Neurologic: PERRL, EOMI, accommodation nl, no face palsy, no dysarthria Psychiatric: Orientation: alert and oriented x 3 Affect: euthymic affect Results & Data Results & Data ([facility]) Vital Signs (Past 12 Hours) Vital Signs Temp Pulse Pulse Resp BP Pulse Ox 11/18/19 16:19 37.1 C 96 H 22 120/67 92 11/18/19 16:00 37.1 C 92 H 19 94 11/18/19 15:36 95 H 18 92 11/18/19 15:19 37.1 C 96 H 22 104/61 92 11/18/19 15:00 37.1 C 96 H 18 93 11/18/19 14:18 37.1 C 99 H 26 H 116/68 92 11/18/19 14:00 37.1 C 97 H 25 H 92 11/18/19 13:19 37.1 C 92 H 22 113/54 L 94 11/18/19 13:00 37.2 C 96 H 32 H 95 11/18/19 12:19 37.1 C 105 H 26 H 139/68 92 11/18/19 12:10 97 H 20 93 11/18/19 12:00 37.1 C 96 H 24 91 11/18/19 11:19 37.0 C 94 H 22 135/61 95 11/18/19 11:00 36.9 C 93 H 17 94 11/18/19 10:37 36.9 C 90 33 H 132/54 L 91 11/18/19 10:19 36.9 C 93 H 22 82/48 L 94 11/18/19 10:00 36.8 C 88 25 H 11/18/19 09:19 36.7 C 94 H 27 H 125/72 92 11/18/19 09:14 36.7 C 88 18 121/73 11/18/19 09:08 36.7 C 80/64 L 90 11/18/19 09:04 36.7 C 19 107/54 L 94 11/18/19 09:00 36.6 C 94 H 21 100 11/18/19 08:58 36.6 C 89 25 H 116/59 L 100 11/18/19 08:53 36.6 C 88 24 116/63 100 11/18/19 08:48 36.6 C 88 24 132/66 100 11/18/19 08:43 36.6 C 87 21 125/88 94 11/18/19 08:38 36.6 C 88 30 H 127/64 100 11/18/19 08:33 36.6 C 90 24 137/68 100 11/18/19 08:28 36.5 C 90 34 H 105/56 L 96 11/18/19 08:24 36.5 C 90 29 H 91/34 L 96 11/18/19 08:00 36.4 C L 89 19 91 11/18/19 07:34 90 18 90 11/18/19 07:32 36.4 C L 89 23 129/71 92 11/18/19 07:00 36.4 C L 84 21 93 11/18/19 06:32 36.4 C L 80 18 102/55 L 94
[2019-11-18] MEDS: AMLODIPINE BESYLATE 5 MG TAB PO SCH (20:31)
[2019-11-18] MEDS: ESCITALOPRAM OXALATE 20 MG TAB PO SCH (20:31)
[2019-11-18] MEDS: FINASTERIDE 5 MG TAB PO SCH (20:31)
[2019-11-19] MEDS: ALBUMIN 25% 50 ML IV SCH ×3 (01:26→09:09)
[2019-11-19 04:50] LABS: Mean Corpuscular Hgb Conc 29.9 g/dL (32-36)
[2019-11-19 04:54] LABS: Hematocrit (blood only) 24.4 % (42-52); Hemoglobin 7.3 g/dL (14.0-18.0); Mean Corpuscular Hemoglobin 25.1 pg (25-34); Mean Corpuscular Volume 83.8 fL (80-100); Nucleated RBC # (auto) 0.66 K/uL (0-0); Nucleated RBC % (auto) 13.6 %; Platelet Count 71 K/uL (130-400); RDW Coefficient of Variation 19.8 % (11.5-14.5); RDW Standard Deviation 59.8 fL (36.4-46.3); Red Blood Count 2.91 M/uL (4.7-6.1); White Blood Count 4.85 K/uL (4.8-10.8)
[2019-11-19 05:20] LABS: BUN Creatinine Ratio 19.8 (10-20); Calcium 8.4 mg/dl (8.5-10.1); Est GFR (African American) 53.7; Est GFR (Non-African American) 46.3; Magnesium 2.2 mg/dl (1.8-2.4); Phosphorus 5.2 mg/dl (2.5-4.9)
[2019-11-19 05:30] LABS: Basophils # (auto) 0.06 K/uL (0-0.2); Basophils % (auto) 1.2 %; Eosinophils % (auto) 2.1 %; Immature Granulocytes # (auto) 0.23 K/uL (0.00-0.02); Immature Granulocytes % (auto) 4.7 %; Lymphocytes # (auto) 1.29 K/uL (1.2-3.4); Lymphocytes % (auto) 26.6 %; Monocytes # (auto) 0.82 K/uL (0.11-0.59); Monocytes % (auto) 16.9 %; Neutrophils # (auto) 2.35 K/uL (1.4-6.5); Neutrophils % (auto) 48.5 %; RBC Morphology Unremarkable
[2019-11-19] MEDS: PIPERACILLIN/TAZOBACTAM 3.375 GM in DEXTROSE 5% 100 ML IV SCH ×2 (05:30→13:31)
[2019-11-19] MEDS: INSULIN ASPART 100 UNITS/ML 3 ML PEN SC SCH ×4 (05:30→20:39)
[2019-11-19] MEDS: LEVOTHYROXINE SODIUM 88 MCG TABLET PO SCH (05:30)
--- NOTE | 2019-11-19 05:41 | Critical Care Progress Note ---
Date of Service November 19, 2019 Assessment & Plan (1) Acute respiratory failure with hypoxia: Impression: 74-year-old male with recent diagnosis of metastatic breast cancer and left malignant pleural effusion, now presents with acute hypoxic respiratory failure Neuro - [facility] ICU: Negative -Long discussion with patient this AM in regards to his prognosis and code status. -Patient felt that at this time if something were to happen he would rather us "don't do anything." -Changed patients code status to DNR/DNI at this time. -Plans for discussion with Palliative Medicine at 14:00 today. Cardiac - Currently hemodynamically stable and normotensive and in normal sinus rhythm -Troponin negative -We will continue to monitor on telemetry -Continue home dose amlodipine Respiratory - -Acute hypoxic respiratory failurepatient presented with increased shortness of breath found to have pulse ox in the 80s on room air and placed on oxygen mask, also given a dose of IV lasix -Work of breathing improved on HiFlow O2 -Patient with L malignant pleural effusion, stable L pneumatothorax and has received thoracentesis x2 and pigtail catheter on a previous admission. -Initial concern for PE, CTA chest negative for PE, but did show effusions noted above, metastatic disease, and widespread osseous metastatic disease. -Pulmonology consulted, patient may require a pleurx catheter during this stay -Pleurx catheter placed today -Will hold Lovenox for 24 more hours -Drained pleurX catheter q4h yesterday and overnight, will stop drains at this point unless directed otherwise by Pulmonology. -50mg Albumin 25% q4h -- DC -Continue nebs -Wean O2 as tolerated. -Due to patients further metastasis and poor prognosis, Palliative Medicine consulted. -Slight improvement of upper L lung field today on PE and CXR GI - -Diet resumed RENAL/LYTES - Creatinine within normal limits monitor routine BMPs and replete electrolytes as indicated - -Strict I's and O's -Continue garzon per pts request, notes he is unable to move enough to prevent urinating on himself. ENDO - DM type IIICU hyperglycemic protocol -Continue glargine/aspart Hypothyroidrecent TSH within normal limits -Continue Synthroid HEME - -Pancytopenialikely secondary to bone metastasis as seen on CT, patient has not undergone chemo or radiation at this time -No indication for transfusion, continue to trend CBC -No evidence of bleeding or hemorrhage, INR within normal limit -Prior to the Lovenox, patient had not received heparin during this admission. Do not believe at this time for a high probability of heparin inducted thrombocytopenia. -Plan to continue with Lovenox for continued treatment of DVT -Will hold Lovenox for 24 more hours for s/p Pleurx catheter placement, resume later today. ID -placed on Zosyn as unable rule out pneumonia at this time -No signs of sepsis this patient who was afebrile, leukopenia -Pro-Martinez negative -MRSA negative -Pleural specimen from 10/11 noninfectious -UA unremarkable LINES/IV ACCESS - Peripheral IVs DVT -lower extremity Doppler showed acute right lower extremity DVT with involvement of the peroneal veins. No evidence of [id number] thrombus -CTA chest negative for PE as discussed above -Continue therapeutic dose Lovenox twice daily once resumed Dispo: Plan for downgrade today after discussion with Palliative Thank you for allowing us to participate in the care of this patient. Please refer to my attending physician's documentation for any further recommendations. 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 Mcdonald was resident physician during care of patient. I separately evaluated patient for medrano portions of the history and the exam. I was present during the critical portion of medical decision making, and I discussed the case with the resident. I generally agree with the findings and plan. Patient was discussed in multidisciplinary rounds. It appears we have largely drained out the pleural effusion however anticipated will continue to produce given its malignant qualities. Patient does not feel largely improved. I am concerned that he is approaching a terminal condition. He is stable for downgrade out of the ICU. Subjective Patient seen and evaluated at the bedside. Patient noting this morning that he was "maybe breathing a little easier." Over all the patient notes he has not been able to move much still and is still feeling short of breath regardless of the drainage. Had long discussion with patient in regards to his code status and prognosis. Patient felt that at this time he would rather us "not do anything" if his heart should stop beating or he would stop breathing. He still would like to discuss with his later this afternoon regarding this, but at this time he would like to change his code status to DNR/DNI. Review of Systems Constitutional: + fatigue and + weakness; no fever and no chills Eyes: no worsening vision Ear, Nose, Mouth, Throat: no dizziness Respiratory: + dyspnea and + dyspnea on exertion Cardiovascular: + dyspnea and + dyspnea on exertion; no chest pain and no radiating jaw, neck or arm pain Gastrointestinal: no abdominal pain, no nausea and no vomiting Genitourinary: + difficulty urinating Physical Exam Constitutional: + ill appearing Eyes: PERRL, conjunctivae normal, anicteric sclerae normal visual husain by confrontation ENMT: external ear and nose normal, oropharynx normal Respiratory: + labored breathing (on HiFlow ) and + cough Auscultation: + diminished lung sounds; no wheezes L lower lobe fairly absent Slight increase in air movement of L upper lobe Fair air movement in R lung husain Cardiovascular: Rate/Rhythm: regular rate and regular rhythm Heart Sounds: no gallop and no murmur Vessels: normal peripheral pulses Gastrointestinal (Abdomen): Inspection/Auscultation: abdomen normal to inspection and normal bowel sounds; abdomen not distended Percussion/Palpation: abdomen nontender Psychiatric: Orientation: alert and oriented x 3 Genitourinary: Garzon cathter in place Results & Data Results & Data ([facility]) Vital Signs (Past 12 Hours) Vital Signs Temp Pulse Pulse Resp BP Pulse Ox 11/19/19 03:19 37.0 C 105 H 30 H 123/70 87 L 11/19/19 02:41 90 19 94 11/19/19 02:19 37.1 C 91 H 24 115/56 L 95 11/19/19 01:19 37.1 C 96 H 21 86/52 L 93 11/19/19 00:19 37.1 C 95 H 25 H 122/82 93 11/19/19 00:00 93 H 11/18/19 23:30 103 H 20 93 11/18/19 23:19 37.2 C 108 H 19 114/77 91 11/18/19 22:19 37.3 C 93 H 16 99/58 L 95 11/18/19 22:00 37.3 C 95 H 22 95 11/18/19 21:19 37.3 C 97 H 25 H 124/44 L 93 11/18/19 21:00 37.2 C 102 H 30 H 91 11/18/19 20:19 37.3 C 96 H 24 111/60 94 11/18/19 20:00 37.3 C 99 H 28 H 94 11/18/19 19:59 99 H 22 96 11/18/19 19:19 37.2 C 99 H 23 108/60 96 11/18/19 19:00 37.2 C 95 H 18 96 11/18/19 18:00 37.3 C 104 H 32 H 88 L Resident Activity Tracking Resident Involvement: Resident Care Provided Care Provided: Adult Hospital Medicine
[2019-11-19 05:43] LABS: INR 1.1 (0.9-1.1); Prothrombin Time 11.8 Seconds (9.0-12.0)
[2019-11-19] MEDS: ENOXAPARIN 100 MG/1ML SYR SQ SCH ×2 (08:11→20:20)
[2019-11-19] MEDS: INSULIN GLARGINE SOLOSTAR 100 UNITS/ML 3 ML PEN SC SCH (08:11)
--- NOTE | 2019-11-19 09:00 | XRay Report ---
XR chest 1V portable CLINICAL HISTORY: Shortness of breath COMPARISON STUDY: 11/18/2019 FINDINGS: There are persistent bilateral pleural effusions. There is left lung volume loss with left mid and lower lung zone airspace opacities. There is radiographic evidence of interstitial thickening , likely resenting pulmonary edema although lymphangitic carcinomatosis could appear similar. A left basilar pleural catheter is visualized. There is a suspected small loculated left apical pneumothorax [ IMPRESSION: 1. Persistent pulmonary edema pattern with bilateral pleural effusions 2. Persistent left lung volume loss with left mid and lower lung zone airspace opacities 3. Left-sided pleural drainage catheter 4. Small loculated left apical pneumothorax ACT 112: Negative or not required by law. Electronically signed by: Enrique Rm M.D. 11/19/2019 8:58 AM
[2019-11-19] MEDS: ROSUVASTATIN CALCIUM 20 MG TAB PO SCH (10:59)
[2019-11-19] MEDS: MoRPHine SULFATE 2 MG/ML CARP IV PRN ×2 (11:00→15:05)
--- NOTE | 2019-11-19 11:09 | Billing Data ---
Date of Service November 19, 2019 Coding Level of Care Code 51245 Subseq Hosp Care Lvl 2
[2019-11-19] MEDS ORDERED: LORazepam 0.5 MG/1 ML VIAL IV PRN (15:00)
--- NOTE | 2019-11-19 15:40 | Palliative Care Progress Note ---
Date of Service November 19, 2019 Assessment & Plan (1) Goals of care, counseling/discussion: Patient is a 74-year-old male with a past medical history significant for diabetes, hypertension, HLD, hypothyroid, prostate cancer-7 years ago, treated with Lupron, bladder cancer diagnosed in May 2018-surgery only who was recently hospitalized here at [facility] from 10/11-10/15 for shortness of breath and hypoxia. He was found to have a large left pleural effusion, CT scan also showed a 5.3 cm left breast mass with increased adenopathy and a T10 compression fracture as well as lung nodules. Patient underwent thoracentesis on 10/12- pathology was positive for neoplasm, breast primary, estrogen positive, progesterone positive, HER-2/LE negative. Patient had urine cytology performed on 10/13 which was negative for malignancy. Patient was being followed by pulmonology as an outpatient with a plan for repeat When patient became symptomatic. Patient underwent thoracentesis on 11/11 and had 1 L removed. Patient presented to [facility] on 11/15 for increased shortness of breath, increased edema, and weakness. Patient currently in the ICU on high flow nasal cannula at 30 L/min with sats of 97%. Patient has a large left pleural effusion-Pleurx catheter placed -another 2.5 L removed, with no improvement in his respiratory status. -Assisted with filling out paperwork-completed the physician section for trip insurance. Patient and had a vacation scheduled the end of November. -Patient seen and examined, he is awake alert and oriented x4. Patient with some shortness of breath with conversation. Patient is lying in bed with his left side down to improve aeration. -Patient CODE STATUS is now DNR/DNI -Patient and have 1 son who lives in [place], they also have a 1-year-old grandson. 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 His is also a CPA but continues to work remotely. -Patient reports he has never undergone chemotherapy before-his prostate cancer was treated with Lupron alone, and his bladder cancer was treated with surgery alone. -Patient has significant left upper extremity lymphedema as well as left lower extremity swelling due to DVT -Collaborated with Case management for home hospice referral -PPS 30% (2) Pleural effusion, left: Recurrent pleural effusion, status post thoracentesis x2. Pleurx catheter placed -additional 2.5 L removed with no improvement in his respiratory status (3) Hypoxia: Requiring O2 via high flow nasal cannula -we will use PRN Ativan and PRN morphine to improve respiratory comfort, will try to wean O2 to a level that can be provided in the home. (4) Breast cancer in male: -Patient and understand that given his current condition he is not a candidate for any further treatment (5) History of bladder cancer: Status post resection-urine cytology negative for malignancy on 10/14/2019 (6) Prostate cancer: Treated with Lupron (2) Pleural effusion: (3) Hypoxia: (4) Breast cancer in male: (5) History of bladder cancer: (6) History of prostate cancer: Admission and Anticipated Discharge Date Admission Date: November 16, 2019 Subjective Chart reviewed, patient seen and examined. Patient's , Rosario, at bedside. Collaborated with attending physician as well as attending resident physician. Patient underwent Pleurx placement left chest-drained a total of approximately 2.5 L-no improvement in his respiratory status. Patient has trapped lung. Patient continues on high flow nasal cannula at 30 L with an FiO2 of 60%. Patient is awake and alert, fluctuating O2 sats between low 80s and 94. Patient did receive a dose of 1 mg IV morphine-patient said he did not see any effect at all, patient does report long history of anxiety for which he takes Lexapro and has been on PRN Ativan in the past. - Discussed with resident physician increasing his morphine and titrating as needed as well as addition of low-dose Ativan, Ativan can be titrated also. Would start with morphine at 2 mg IV titrated to 4 mg and higher if needed. Would start Ativan at 0.5 mg IV and titrate to 1 mg as needed. - Discussed prognosis with ICU attending-patient likely has weeks at the most. Discussed his prognosis with patient and at bedside. Patient did state that he would rather be home if possible, stated he is "not ready to ". -Patient has 1 son who lives in [place] along with his and 1 grandson who is [id number]-they are traveling to see patient. -Patient's is amenable to having him at home under hospice care, feels that she would be able to handle his care with hospice support. -Collaborated with case management, will need to titrate his morphine and Ativan for comfort and then start weaning his O2 until it is at a level that can be delivered at home. -Discussed services provided by hospice including supplies, some medications as well as medical equipment. Discussed with details of daily care at home including handling bowel movements, patient has an indwelling Myers. -Discussed that getting home would enable patient to see his family including his 1-year-old grandson who would not likely be allowed to visit him in the ICU. -Patient reports he needs to lie flat in bed with left side down, even elevating the head of the bed a little bit causes him discomfort and shortness of breath. -Patient and agreeable to referral for home hospice, will get medical equipment in place so if we are able to wean his O2 to level that can be provided at home patient will be able to go home without any delay. -PPS 30% Review of Systems Review of Systems: Patient denies fever, chills, chest pain or abdominal pain Positive for shortness of breath with minimal exertion, positive for left lower and left upper extremity edema Physical Exam Physical Exam: PE: Patient awake and alert, appears comfortable at rest, increased shortness of breath with conversation HEENT: EOMI, hearing within normal limits Respirations: Increased respiratory rate especially with conversation, poor breath sounds on the left, diminished right base CV: Regular rate, left lower extremity swelling-positive DVT, left upper extremity lymphedema due to adenopathy Abdomen: Soft, nontender, not distended Extremities: Full range of motion, warm to touch Neuro: Alert and oriented x4 Psych: Mild to moderate anxiety Results & Data ([facility]) Vital Signs (Past 12 Hours) Vital Signs Temp Pulse Pulse Pulse Resp BP Pulse Ox 11/19/19 13:45 93 H 26 H 11/19/19 10:20 97 H 22 91 11/19/19 07:40 94 H 22 90 11/19/19 06:04 88 18 94 11/19/19 05:39 98.6 F 90 16 111/54 L 97 11/19/19 05:00 98.6 F 95 H 21 94 11/19/19 04:19 98.6 F 90 20 86/55 L 96 PG Care Time/CCT Total # of Minutes Spent Total Time Spent with Patient: Total time spent 110 minutes with greater than 50% of the time spent at bedside discussing care options, prognosis and goals of care with patient and at bedside. Collaborated with ICU physician team as well as case management. Also assisted in filling out paperwork for patient's vacation insurance Prolonged Care Time Prolonged Care Time: Yes Total Prolonged Care Time: 75 Coding Level of Care Code 38944 Subseq Hosp Care Lvl 3 Diagnoses Goals of care, counseling/discussion Z71.89 Pleural effusion J90 Hypoxia R09.02 Breast cancer in male C50.929 History of bladder cancer Z85.51 History of prostate cancer Z85.46 Additional Codes Prolonged Care Time - Prolonged Care Time: Yes ([id number]) Time Spent (min) 110 Critical Care Time Prolonged Care Time Prolonged Care Time: Yes Total Prolonged Care Time: 75
[2019-11-19] MEDS: LORazepam 0.5 MG/1 ML VIAL IV PRN (17:00)
--- NOTE | 2019-11-19 17:15 | Pulmonology Progress Note ---
Date of Service November 19, 2019 Assessment & Plan (1) Acute respiratory failure with hypoxia: --Acute hypoxic respiratory failure Presenting with bilateral pleural effusion and interstitial thickening Patient has history of left-sided pleural effusion status post thoracentesis x2 This time he has bilateral pleural effusion Continue with O2 supplementation. High flow with BiPAP nightly and PRN shortness of breath --Pleural effusion b/l, left-sided ex vacuo pneumothorax Initial plan for the senior sales associate was Pleurx catheter Risks and benefits of the procedure explained to the patient. He understands and wants to go ahead with the procedure. Status post Pleurx catheter placement on the left side 11/18/2019. 1 L of hemorrhagic fluid was removed at that time --Pancytopenia Platelet count of 71 PT/INR within normal limit --Prognosis guarded Recommend palliative care Plan: Continue with comfort measures. Recommend discontinuing albumin and giving diuretics instead. Cr went up a little. Patient is positive 1 L today. Drain pleur Catheter on a daily basis. c/w HiFlow with BiPAP Qhs and PRN SOB. Please note the above document was generated using voice recognition software. It may contain grammatical, syntax or spelling errors. (2) Pleural effusion: (3) Breast cancer in male: Admission and Anticipated Discharge Date Admission Date: November 16, 2019 Subjective Patient seen and examined at bedside. No acute distress, no adverse events overnight. Patient still feels more comfortable and is lying on the left side. Patient has been getting 25% albumin every 4 hours as per ICU. His CODE STATUS has been changed to DNR/DNI Breathing is still labored as per patient. Denies any CP. Patient had gotten Ativan just prior to relax him. Review of Systems Review of Systems: All systems reviewed & are unremarkable except as noted in Subjective Physical Exam Physical Exam: Constitutional: No acute distress HEENT: EOMI, PERRLA Respiratory system: decreased air entry bilaterally, no wheeze, no rhonchi, mild crackles b/l LL CVS: S1-S2 positive, no murmurs or gallops Abdomen: Soft, nontender, nondistended, positive bowel sounds x4 Extremities: +2 pulses bilaterally radialis/ dorsalis pedis, no cyanosis, +2 pitting edema b/l LE and LUE Neuro: Awake alert oriented x3 Psych: Normal mood and affect G/U: + Myers Skin: no rashes, warm and dry Lymphatic: no cervical or axillary lymphadenopathy Results & Data Results & Data ([facility]) Vital Signs (Past 12 Hours) Vital Signs Temp Pulse Pulse Pulse Resp BP Pulse Ox 11/19/19 15:50 93 H 22 96 11/19/19 13:45 93 H 26 H 11/19/19 10:20 97 H 22 91 11/19/19 07:40 94 H 22 90 11/19/19 06:04 88 18 94 11/19/19 05:39 37.0 C 90 16 111/54 L 97 11/19/19 04:24 11/19/19 04:24 PG Care Time/CCT Total # of Minutes Spent Total Time Spent with Patient: Total time spent is greater than 50% in coordination of care (as documented) at patient's floor/unit and/or counseling p atient: Coding Level of Care Code 08549 Subseq Hosp Care Lvl 3 Diagnoses Acute respiratory failure with hypoxia J96.01 Pleural effusion J90 Breast cancer in male C50.929
--- NOTE | 2019-11-19 17:27 | Hospitalist Progress Note ---
Date of Service November 19, 2019 Assessment & Plan (1) Acute respiratory failure with hypoxia: Present on admission with worsening SOB due to Malignant pleural effusion CXR showed persistent bilateral pleural effusions left greater than right. Persistent left lower lung zone airspace opacities, CTA chest showed no evidence for PE. Large left hydropneumothorax resulting in mild right mediastinal shift. Moderate right pleural effusion which is new compared the prior study. Interlobular septal thickening and patchy airspace opacities within the lung apices. S/P pleuX cath placement by pulm ECHO normal EF , no pericardial effusion Family meeting with palliative care today and, CODE STATUS now DNR/DNI, Patient wants to return home with hospice care Continue requiring high flow oxygen, stable to be transferred out ICU Continue to titrate oxygen as much as patient can tolerate DVT in the Right LE Doppler of LE showed acute right lower extremity DVT with involvement of the peroneal veins. CTA chest : no PE Metastatic Breast cancer /with malignant pleural effusion- Planned for palliative chemo followed by tamoxifen-has not yet started treatment follows with Hematology Dr Rosado Very poor prognosis, Plan to transition care to palliative/hospice on discharge to home Anemia of chronic disease /metastatic malignancy Hgb 7. 3 Continue monitor h/h Per guidelines blood transfusion is done with hemoglobin less than 7 Given current status of hospice will discuss with patient and family, Would recommend transfusion of 1 unit of blood prior to discharge home with hospice to decrease hypoxia/work of breathing DM Type 2 Most recent hemoglobin A1c of 7.20 August 2019 On insulin and Novolog sliding scale Hypothyroidism Continue Levothyroxine CODE STATUS DNR/DNI Disposition: Return home with hospice when medically stable Admission and Anticipated Discharge Date Admission Date: November 16, 2019 Subjective Patient reports that he feels his breathing is still the same, Does not have any feeling of shortness of breath, no cough Movement still limited to secondary to pain and discomfort Review of Systems Review of Systems: All systems reviewed & are unremarkable except as noted in HPI & below Physical Exam Constitutional: + ill appearing Eyes: PERRL, conjunctivae normal, anicteric sclerae ENMT: external ear and nose normal, oropharynx normal Neck: trachea midline, no thyromegaly Respiratory: Auscultation: + crackles and + rales Cardiovascular: RRR, no murmur, no edema Gastrointestinal (Abdomen): Inspection/Auscultation: normal bowel sounds Percussion/Palpation: abdomen soft Skin: no rashes, warm and dry Neurologic: PERRL, EOMI, accommodation nl, no face palsy, no dysarthria Psychiatric: Orientation: alert and oriented x 3 Affect: euthymic affect Results & Data Results & Data ([facility]) Vital Signs (Past 12 Hours) Vital Signs Temp Pulse Pulse Pulse Resp BP Pulse Ox 11/19/19 15:50 93 H 22 96 11/19/19 13:45 93 H 26 H 11/19/19 10:20 97 H 22 91 11/19/19 07:40 94 H 22 90 11/19/19 06:04 88 18 94 11/19/19 05:39 37.0 C 90 16 111/54 L 97
[2019-11-19] MEDS ORDERED: FUROSEMIDE 40 MG in SYRINGE 0 ML IV SCH (17:30)
--- NOTE | 2019-11-19 17:44 | Communication Note ---
Date of Service: November 19, 2019 Given update to patient's Rosario Lucia Plan is to have patient return home with hospice is interested to have at least 1 unit of blood transfusion prior to discharge home, Patient is ordered 40 mg of IV Lasix today ordered to check Hb tomorrow Plan to transfuse 1 unit of PRBC tomorrow followed by 20 mg of IV Lasix to prevent volume overload/worsening of pleural effusion Continue to drain Pleurx catheter daily, Myers catheter will be continued for comfort/patient is gets very hypoxic / severe pain with minimal movement Kaitlin Pitt MD
[2019-11-19] MEDS ORDERED: FUROSEMIDE 40 MG in SYRINGE 0 ML IV ONE (17:45)
[2019-11-19] MEDS ORDERED: Nursing to Pharmacy Communication SCH (19:30)
[2019-11-19] MEDS: FINASTERIDE 5 MG TAB PO SCH (20:20)
[2019-11-19] MEDS: MIRTAZAPINE TAB 15 MG TAB PO SCH (20:20)
[2019-11-19] MEDS: ESCITALOPRAM OXALATE 20 MG TAB PO SCH (20:20)
[2019-11-20] MEDS: LEVOTHYROXINE SODIUM 88 MCG TABLET PO SCH (05:30)
[2019-11-20 07:35] LABS: Hematocrit (blood only) 22.9 % (42-52); Hemoglobin 6.9 g/dL (14.0-18.0)
--- NOTE | 2019-11-20 08:31 | Pulmonology Progress Note ---
Date of Service November 20, 2019 Assessment & Plan (1) Acute respiratory failure with hypoxia: --Acute hypoxic respiratory failure Presenting with bilateral pleural effusion and interstitial thickening Patient has history of left-sided pleural effusion status post thoracentesis x2 This time he has bilateral pleural effusion Continue with O2 supplementation. High flow with BiPAP nightly and PRN shortness of breath I think this is progression of his underlying breast cancer and lymphatic spread into the lungs. --Pleural effusion b/l, left-sided ex vacuo pneumothorax Initial plan for the marine pipefitter was Pleurx catheter Risks and benefits of the procedure explained to the patient. He understands and wants to go ahead with the procedure. Status post Pleurx catheter placement on the left side 11/18/2019. 1 L of hemorrhagic fluid was removed at that time --Prognosis guarded Recommend palliative care Plan: Keep the patient as comfortable as possible. Can try drainage from the Pleurx catheter every other day as there was only 50 cc today. No further recommendations from pulmonary perspective. We will sign off. Please recall if needed. Please note the above document was generated using voice recognition software. It may contain grammatical, syntax or spelling errors. (2) Pleural effusion: (3) Breast cancer in male: Admission and Anticipated Discharge Date Admission Date: November 16, 2019 Subjective Patient seen and examined at bedside. Complaining of feeling generalized weakness. Still complaining of shortness of breath. He is getting morphine and Ativan as needed. He has been downgraded from the ICU. Plan is to send the patient home on hospice. Only 50 cc of fluid came out from the left-sided Pleurx catheter today. Review of Systems Review of Systems: All systems reviewed & are unremarkable except as noted in Subjective Physical Exam Physical Exam: Constitutional: No acute distress HEENT: EOMI, PERRLA Respiratory system: decreased air entry bilaterally, no wheeze, no rhonchi, mild crackles b/l LL CVS: S1-S2 positive, no murmurs or gallops Abdomen: Soft, nontender, nondistended, positive bowel sounds x4 Extremities: +2 pulses bilaterally radialis/ dorsalis pedis, no cyanosis, +2 pitting edema b/l LE and LUE Neuro: Awake alert oriented x3 Psych: Normal mood and affect Skin: no rashes, warm and dry Lymphatic: no cervical or axillary lymphadenopathy Results & Data Results & Data ([place]) Vital Signs (Past 12 Hours) Vital Signs Temp Pulse Pulse Resp BP Pulse Ox 11/20/19 08:01 37.1 C 102 H 20 108/66 92 11/20/19 04:08 36.8 C 103 H 18 106/66 94 11/19/19 22:20 105 H 11/19/19 22:00 36.7 C 76 18 122/70 95 11/20/19 07:03 11/19/19 04:24 PG Care Time/CCT Total # of Minutes Spent Total Time Spent with Patient: Total time spent is greater than 50% in coordination of care (as documented) at patient's floor/unit and/or counseling patient: Coding Level of Care Code 67653 Subseq Hosp Care Lvl 3 Diagnoses Acute respiratory failure with hypoxia J96.01 Pleural effusion J90 Breast cancer in male C50.929
[2019-11-20] MEDS: INSULIN GLARGINE SOLOSTAR 100 UNITS/ML 3 ML PEN SC SCH (08:32)
[2019-11-20] MEDS: INSULIN ASPART 100 UNITS/ML 3 ML PEN SC SCH ×4 (08:32→20:25)
[2019-11-20] MEDS: ENOXAPARIN 100 MG/1ML SYR SQ SCH (08:32)
[2019-11-20] MEDS: MoRPHine SULFATE 2 MG/ML CARP IV PRN (08:49)
[2019-11-20] MEDS ORDERED: SODIUM CHLORIDE 0.9% 250 ML IV PRN (10:29)
[2019-11-20] MEDS ORDERED: FUROSEMIDE 20 MG in SYRINGE 0 ML IV SCH (11:00)
[2019-11-20] MEDS ORDERED: MoRPHine SULFATE 10 MG/0.5 ML UDP PO PRN (11:09)
[2019-11-20] MEDS ORDERED: LORazepam 1 MG TAB SL PRN (11:09)
--- NOTE | 2019-11-20 13:44 | Palliative Care Progress Note ---
Date of Service November 20, 2019 Assessment & Plan (1) Goals of care, counseling/discussion: Patient is a 74-year-old male with a past medical history significant for diabetes, hypertension, HLD, hypothyroid, prostate cancer-7 years ago, treated with Lupron, bladder cancer diagnosed in May 2018-surgery only who was recently hospitalized here at [facility] from 10/11-10/15 for shortness of breath and hypoxia. He was found to have a large left pleural effusion, CT scan also showed a 5.3 cm left breast mass with increased adenopathy and a T10 compression fracture as well as lung nodules. Patient underwent thoracentesis on 10/12- pathology was positive for neoplasm, breast primary, estrogen positive, progesterone positive, HER-2/EL negative. Patient had urine cytology performed on 10/13 which was negative for malignancy. Patient was being followed by pulmonology as an outpatient with a plan for repeat When patient became symptomatic. Patient underwent thoracentesis on 11/11 and had 1 L removed. Patient presented to [facility] on 11/15 for increased shortness of breath, increased edema, and weakness. Patient currently in the ICU on high flow nasal cannula at 30 L/min with sats of 97%. Patient has a large left pleural effusion-Pleurx catheter placed -another 2.5 L removed, with no improvement in his respiratory status. -Patient seen and examined, he is awake alert and oriented x4. Patient with some shortness of breath with conversation. Patient is lying in bed with his left side down to improve aeration. -Patient CODE STATUS is DNR/DNI -Patient and have 1 son who lives in [place], they also have a 1-year-old grandson. They are to arrive in [facility] at 9 PM. -Patient has significant left upper extremity lymphedema as well as left lower extremity due to DVT. -Plan to transition to p.o. meds with p.o. morphine at 10 mg as needed as well as Ativan 0.5 mg as needed. -Patient weaned to 10 L O2 via Oxy mask - would like hospital bed and other DME delivered to the home tomorrow morning when son is available to help, plan is to discharge home with hospice sometime tomorrow. -PPS 30% (2) Pleural effusion, left: Recurrent pleural effusion, status post thoracentesis x2. Pleurx catheter placed -additional 2.5 L removed with no improvement in his respiratory status (3) Hypoxia: Weaned to 10 L of O2-we will continue PRN Ativan and PRN morphine to improve respiratory comfort (4) Breast cancer in male: -Patient and understand that given his current condition he is not a candidate for any further treatment, plan is to return home with hospice care (5) History of bladder cancer: Status post resection-urine cytology negative for malignancy on 10/14/2019 (6) Prostate cancer: Treated with Lupron (2) Pleural effusion: (3) Hypoxia: Weaned to O2 at 10 L (4) Breast cancer in male: Plan for discharge home with hospice care (5) History of bladder cancer: Status post resection-urine cytology negative for malignancy on 10/14/2019 (6) History of prostate cancer: Admission and Anticipated Discharge Date Admission Date: November 16, 2019 Subjective Patient seen and examined in room 282-no family at bedside. Patient has been weaned to 10 L via oxime mask with O2 sats is 91%. Patient did receive 2 doses of IV morphine and 1 dose of Ativan overnight for shortness of breath and anxiety. Patient reports breathing has improved, feels morphine is effective. Patient's respiratory status is unchanged wean off of the high flow nasal cannula. Patient is awake and alert , States he is doing "not too bad". Spoke to patient's , Rosario, at [phone] Plan is to have hospital bed and other DME delivered tomorrow morning and have patient discharged home with hospice tomorrow. Patient's son, [id number] and 1-year-old grandson are scheduled to arrive [facility] in [place] at 9 PM. Review of Systems Review of Systems: Patient denies fever, chills, chest pain, increased shortne ss of breath, or abdominal pain Positive increased shortness of breath with sitting upright and conversation Physical Exam Physical Exam: PE: Patient awake and alert, appears comfortable at rest HEENT: EOMI, hearing within normal limits Respirations: Minimal breath sounds on left, diminished on right base, shortness of breath with speech, comfortable at rest CV: Tachycardic Abdomen: Soft, not distended Extremities: Appear well perfused Neuro: Alert and oriented. Results & Data ([facility]) Vital Signs (Past 12 Hours) Vital Signs Temp Pulse Pulse Resp BP BP Pulse Ox 11/20/19 12:36 98.2 F 99 H 22 108/54 L 91 11/20/19 12:31 98.5 F 106 H 24 98/54 L 93 11/20/19 12:19 98.2 F 64 18 115/54 L 11/20/19 11:15 97.5 F L 98 H 20 111/63 95 11/20/19 08:01 98.8 F 102 H 20 108/66 92 11/20/19 04:08 98.2 F 103 H 18 106/66 94 PG Care Time/CCT Total # of Minutes Spent Total Time Spent with Patient: Total time spent 35 minutes with greater than 50% of the time spent at bedside assessing patient's current level of comfort as well as collaborating plan of care with by phone. Coding Level of Care Code 85440 Subseq Hosp Care Lvl 3 Diagnoses Goals of care, counseling/discussion Z71.89 Pleural effusion J90 Hypoxia R09.02 Breast cancer in male C50.929 History of bladder cancer Z85.51 History of prostate cancer Z85.46 Time Spent (min) 35
--- NOTE | 2019-11-20 15:19 | Hospitalist Progress Note ---
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 Roxanol as needed for pain, sublingual Ativan as needed for anxiety will be sent to patient's pharmacy (2) Acute respiratory failure with hypoxia: Due to malignant pleural effusion/metastatic male breast cancer CTA chest :no evidence for PE. Large left hydropneumothorax resulting in mild right mediastinal shift. Moderate right pleural effusion which is new compared the prior study. Interlobular septal thickening and patchy airspace opacities within the lung apices. Patient was seen by pulmonology team S/P thoracentesis x2, with the most recent done on 11/11 where 1 L of fluid removed Pleurx catheter placed for palliative drainage of pleural effusion Overall prognosis remains extremely poor Arrangement made to return home with hospice tomorrow Anemia/pancytopenia: Secondary to metastatic malignancy Hemoglobin drop noted to 6.9 Discussed with patient and patient's Rosario: We will transfuse PRBC to optimize quality, help with improvement of fatigue and reducing shortness of breath 1 unit of PRBC will be transfused with 20 mg of IV Lasix to be given afterwards to prevent volume overload, worsening of pleural effusion Repeat H&H in a.m., and repeat PRBC transfusion his hemoglobin remains persistently low DVT in the Right LE Doppler of LE showed acute right lower extremity DVT with involvement of the peroneal veins. Was treated with therapeutic Lovenox, Severe anemia requiring blood transfusion Lovenox discontinued, very poor prognosis advanced malignancy, going home with hospice, CODE STATUS: DNR/DNI Disposition: Return home with hospice care possibly tomorrow Admission and Anticipated Discharge Date Admission Date: November 16, 2019 Subjective Patient seen and examined at bedside, complains of having shortness of breath, requiring 10 L oxygen via oxygen mask Pleurx catheter drainage of only 50 cc of pleural effusion this morning Back pain well controlled with current regiment of IV morphine, Change to p.o. Roxanol, titrate up for comfort, plan for patient to return home with hospice/palliative care Review of Systems Review of Systems: All systems reviewed & are unremarkable except as noted in HPI & below Physical Exam Constitutional: + ill appearing Eyes: PERRL, conjunctivae normal, anicteric sclerae ENMT: external ear and nose normal, oropharynx normal Neck: trachea midline, no thyromegaly Respiratory: Auscultation: + crackles and + rales Cardiovascular: RRR, no murmur, no edema Gastrointestinal (Abdomen): Inspection/Auscultation: normal bowel sounds Percussion/Palpation: abdomen soft Skin: no rashes, warm and dry Neurologic: PERRL, EOMI, accommodation nl, no face palsy, no dysarthria Psychiatric: Orientation: alert and oriented x 3 Affect: euthymic affect Results & Data Results & Data ([facility]) Vital Signs (Past 12 Hours) Vital Signs Temp Pulse Pulse Resp BP BP Pulse Ox 11/20/19 13:21 36.9 C 99 H 22 100/57 L 92 11/20/19 12:51 36.8 C 105 H 18 100/57 L 97 11/20/19 12:36 36.8 C 99 H 22 108/54 L 91 11/20/19 12:31 36.9 C 106 H 24 98/54 L 93 11/20/19 12:19 36.8 C 64 18 115/54 L 11/20/19 11:15 36.4 C L 98 H 20 111/63 95 11/20/19 08:01 37.1 C 102 H 20 108/66 92 11/20/19 08:00 103 H 11/20/19 04:08 36.8 C 103 H 18 106/66 94
[2019-11-20] MEDS ORDERED: MoRPHine SULFATE 2 MG/ML CARP IV PRN (15:21)
[2019-11-20] MEDS: FINASTERIDE 5 MG TAB PO SCH (20:26)
[2019-11-20] MEDS: ESCITALOPRAM OXALATE 20 MG TAB PO SCH (20:26)
[2019-11-20] MEDS: MIRTAZAPINE TAB 15 MG TAB PO SCH (20:27)
[2019-11-21] MEDS: LEVOTHYROXINE SODIUM 88 MCG TABLET PO SCH (05:30)
[2019-11-21] MEDS: LORazepam 0.5 MG/1 ML VIAL IV PRN (05:48)
[2019-11-21 07:10] LABS: Hematocrit (blood only) 28.1 % (42-52); Hemoglobin 8.4 g/dL (14.0-18.0)
[2019-11-21] MEDS: INSULIN GLARGINE SOLOSTAR 100 UNITS/ML 3 ML PEN SC SCH (09:03)
[2019-11-21] MEDS: INSULIN ASPART 100 UNITS/ML 3 ML PEN SC SCH ×2 (09:03→13:04)
[2019-11-21] MEDS ORDERED: SODIUM CHLORIDE 0.9% 250 ML IV PRN (10:11)
--- NOTE | 2019-11-21 10:25 | Communication Note ---
Date of Service: November 21, 2019 Patient will receive 1 more unit of PRBC transfusion today. Plan to discharge home, once hospice care is arranged, and hospital bed and oxygen supply are delivered Kaitlin Pitt MD
[2019-11-21] MEDS ORDERED: FUROSEMIDE 20 MG in SYRINGE 0 ML IV SCH (10:30)
--- NOTE | 2019-11-21 15:37 | Discharge Summary ---
Date of Service November 21, 2019 Admission HPI Per Admitting Provider History obtained from patient and records. Medical history significant for recent diagnosis of metastatic breast cancer, hypertension, hyperlipidemia, chronic left bundle branch block, prostate cancer status post radiation, bladder cancer status post surgery, DM 2 insulin requiring , hypothyroidism, chronic anemia (baseline hemoglobin 10-11 ). Last confinement last month for respiratory failure secondary to malignant pleural effusion from breast cancer. Patient underwent thoracentesis with chest tube placement. Pleurx catheter recommended for malignant left pleural effusion if with r ecurrence as per outpatient pulmonology note on follow-up 2 weeks ago. Outpatient blood work from 2 weeks ago showed hemoglobin of 8.7, platelets of 127. Patient denies overt bleeding, hematuria, black/bloody stools. Palliative chemotherapy followed by [place] [facility] [place] initial outpatient consultation last week. Patient to be referred for Port-A-Cath placement. Ultrasound-guided thoracentesis done outpatient on reaccumulated left-sided pleural effusion last week. Last few days patient noted worsening shortness of breath more so with exertion and increased fatigue. No cough symptoms, no chest pain. Feet more swollen than usual. Patient too weak to go for outpatient blood work requested by oncologist in preparation for chemotherapy. Patient directed by oncologist to ER for evaluation. 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 Principal Diagnosis Metastatic breast cancer Respiratory failure due to malignant pleural effusion Home with hospice care Discharge Exam Constitutional + ill appearing Eyes PERRL, conjunctivae normal, anicteric sclerae ENMT external ear and nose normal, oropharynx normal Neck trachea midline, no thyromegaly Respiratory Auscultation: + crackles and + rales Cardiovascular RRR, no murmur, no edema Gastrointestinal (Abdomen) Inspection/Auscultation: normal bowel sounds Percussion/Palpation: abdomen soft Skin no rashes, warm and dry Neurologic PERRL, EOMI, accommodation nl, no face palsy, no dysarthria Psychiatric Orientation: alert and oriented x 3 Affect: euthymic affect Discharge Data Allergies Allergy/AdvReac Type Severity Reaction Status Date / Time Sulfa (Sulfonamide Allergy Unknown unknown Verified 11/16/19 18:01 Antibiotics) told by allergists after testing -sulfa allergy Consultations 11/16/19 20:00 ED Decision to Admit Stat 11/16/19 22:48 Consult Case Management - Discharge Planning Routine Consult Child Psychometrist Routine 11/17/19 09:58 Consult Pulmonology Routine 11/17/19 09:59 Consult Palliative Care Routine Ordered Studies 11/16/19 17:36 US venous doppler LE BI Stat 11/16/19 20:27 CT angio chest PE protocol Urgent 11/18/19 08:00 US point of care ultrasound Urgent Hospital Course (1) Goals of care, counseling/discussion: Widespread metastatic breast cancer in male, with malignant pleural effusion, Very poor prognosis Appreciate input from palliative care, Patient will be discharged home with hospice possibly tomorrow, We will have daily Pleurx catheter drainage as tolerated Prescription for p.o. Roxanol as needed for pain, sublingual Ativan as needed for anxiety will be sent to patient's pharmacy (2) Acute respiratory failure with hypoxia: Due to malignant pleural effusion/metastatic male breast cancer CTA chest :no evidence for PE. Large left hydropneumothorax resulting in mild right mediastinal shift. Moderate right pleural effusion which is new compared the prior study. Interlobular septal thickening and patchy airspace opacities within the lung apices. Patient was seen by pulmonology team S/P thoracentesis x2, with the most recent done on 11/11 where 1 L of fluid removed Pleurx catheter placed for palliative drainage of pleural effusion Overall prognosis remains extremely poor Arrangement made to return home with hospice tomorrow Anemia/pancytopenia: Secondary to metastatic malignancy Hemoglobin drop noted to 6.9 Discussed with patient and patient's Rosario: We will transfuse PRBC to optimize quality, help with improvement of fatigue and reducing shortness of breath pt received 2 units of PRBC transfusion DVT in the Right LE Doppler of LE showed acute right lower extremity DVT with involvement of the peroneal veins. Was treated with therapeutic Lovenox, Severe anemia requiring blood transfusion Lovenox discontinued, very poor prognosis advanced malignancy, going home with hospice, CODE STATUS: DNR/DNI Disposition: discharged home with hospice today Total Time Total Time Spent Total Time Spent (In Minutes): 35 mins Total Time Includes: Examination of the Patient, Discharge Planning and Medication Reconciliation Discharge Plan Discharge Items Patient Disposition: Hospice - Home Reason For Visit: resp failure Discharge Diagnosis: Metastatic breast cancer Respiratory failure due to malignant pleural effusion Home with hospice care Activity: As commented below Activity Comment: As tolerated Non-emergency contact: Primary Care Provider Call non-emergency contact if: you have any medication questions Follow-up/Referrals: Raymond Saldivar MD [Primary Care Provider] - Diet: Regular Addtl Attending Provider Instructions: Continue with hospice care and discharged home Drain Pleurx catheter daily- and as needed for shortness of breath Pending Studies at Discharge: No Stand-Alone Forms: My [facility] Medications and DC Order Prescriptions: New mirtazapine [Remeron] 30 mg tablet 30 mg PO HS 30 Days Qty: 30 RF: 0 lorazepam [Ativan] 1 mg tablet 1 mg sublingual Q8 PRN (Reason: alcohol withdrawal) Qty: 90 RF: 0 morphine 20 mg/5 mL (4 mg/mL) solution 10 mg buccal Q6H PRN (Reason: dyspnea) Qty: 30 RF: 0 Continued (DME) Portable Oxygen Misc See Rx Instructions .ROUTE .MEDSUPPLY Qty: 1 RF: 0 albuterol sulfate 90 mcg/actuation Hfa Aerosol Inhaler 2 puff INHALATION QID PRN (Reason: Wheezing) RF: 0 fluticasone propionate [Flonase Allergy Relief] 50 mcg/actuation [place],Suspension 2 spray INTRANASAL DAILY PRN (Reason: Allergy Symptoms) RF: 0 escitalopram oxalate [Lexapro] 20 mg tablet 20 mg PO HS RF: 0 budesonide-formoterol [Symbicort] 160-4.5 mcg/actuation HFA aerosol inhaler 2 puff INHALATION BID RF: 0 Discontinued fexofenadine [Mercedes Allergy] 180 mg tablet 180 mg PO DAILY PRN (Reason: Allergy Symptoms) RF: 0 Lantus U-100 Insulin 100 unit/mL Solution 10 unit SUBCUT QAM RF: 0 amlodipine 2.5 mg tablet 2.5 mg PO HS RF: 0 levothyroxine 88 mcg tablet 88 mcg PO QAM RF: 0 rosuvastatin [Crestor] 20 mg tablet 20 mg PO QDL RF: 0 finasteride [Proscar] 5 mg tablet 5 mg PO HS RF: 0 potassium chloride [Klor-Con M20] 20 mEq Tablet,Er Particles/Crystals 20 meq PO QAM Qty: 30 RF: 0 furosemide [Lasix] 20 mg tablet 20 mg PO DAILY Qty: 30 RF: 0 Januvia 100 mg Tablet 50 mg PO QDL Qty: 0 RF: 0 Discharge Orders: Discharge Order (Routine); Ordered 11/21/19 Ordered By: Kaitlin Pitt Admission Data Admit Date/Time: 11/16/19 21:11 Attending Provider: Kaitlin Pitt Admit Provider: Ko Foley Primary Care Provider: Raymond Saldivar Other Providers: [facility]Home [facility] ; Ko Foley ; Bradly Benitez ; Ion Wilkerson ; Monet Gandhi Other Interventions: Discharge Summary Assessment (RN) Last Done: 11/21/19 14:39
== END 2019-11-21 17:23 | disposition hospice, home (50) | DRG 597 ==
LOC: ED 16:42 → SUATTDRO 21:11 → 1E 21:11 → 2N 11-19 17:27 → 3E 11-21 01:08